=== PATIENT | female | born 1940 | race Caucasian/White ===

== ENCOUNTER → 2017-08-26 11:46 | Outpatient (CLI) | payer MEDICARE, SELFPAY ==
--- NOTE | 2017-08-30 10:58 | PM.PFT.1 ---
Pulmonary Function Test Referral & Results Date Patient Seen: 08/26/17 Results: The spirometry demonstrates an FVC of 1.61 L which is 69% of predicted. The FEV1 was measured at 0.86 L which is 50% of predicted. The FEV1/FVC ratio was 53 which is 72% of predicted. Following the administration of bronchodilator there was no appreciable change. Lung volumes show an SVC of 1.81 L which is 75% of predicted. The diffusing capacity was measured at 9.20 which is 45% of predicted. No hemoglobin value was provided, so no correction for potential anemia could be made, if appropriate. The maximum voluntary ventilation was reduced. Interpretation: This study demonstrates severe obstructive lung disease without evidence of benefit following bronchodilator administration There is also mild to moderate restrictive lung disease present There is also significant disease at the capillary alveolar level as demonstrated by the significant reduction in diffusing capacity
== END ==
PROVIDERS: Family Provider Internal Medicine; PCP Internal Medicine; Visit Provider Internal Medicine
DX: J44.9 Chronic obstructive pulmonary disease, unspecified (principal)
CPT/HCPCS: 94010; 94060; 94726; 94729

== ENCOUNTER 2017-09-25 07:00 | Emergency (ER) | payer MEDICARE, SELFPAY ==
[2017-09-25] VITALS (7 sets, daily range): BP systolic 90–110; BP diastolic 62–72; PULSE 88–110; RESP 16–24; TEMP 36.2; O2SAT 93–96; BMI 24.3
--- NOTE | 2017-09-25 07:25 | DI.RAD.S_ITS ---
PROCEDURE: XR CHEST 2V INDICATIONS: 77 year-old female with shortness of breath. TECHNIQUE: 2 views of the chest were acquired. COMPARISON: [facility], , CHEST 1 VIEW, 05/31/2014, 12:59. FINDINGS: Surgical changes and devices: None. Lungs and pleura: No pleural effusions or pneumothorax. Lungs are clear, except for patchy bilateral reticular interstitial opacities. Mediastinum: Mediastinal contours are normal. Heart size is normal. Bones and chest wall: No suspicious bony abnormalities. Nonacute right mid clavicle fracture is again noted. Nonacute T8, T9, T11, and T12 vertebral body compression fractures are also present. Soft tissues appear unremarkable. IMPRESSION: 1. Patchy bilateral reticular interstitial opacities may reflect early pulmonary edema versus atypical pneumonia. 2. Nonacute right mid clavicle fracture, as well as multiple nonacute lower thoracic spine compression fractures. Dictated by: Jh Phelps M.D. on 09/25/2017 at 8:09 Approved by: Jh Phelps M.D. on 09/25/2017 at 8:12
[2017-09-25] MEDS: ALBUTEROL/IPRATROPIUM 3 ML AMPUL INH (08:13)
[2017-09-25 08:17] LABS: Add Manual Diff / Slide Review NO; Basophils Percent Auto 0.5 % (0-2); Eosinophils Percent Auto 1.4 % (2-4); Hematocrit 39.1 % (36-46); Hemoglobin 13.3 g/dL (12.0-16.0); Lymphocytes Percent Auto 4.7 % (25-40); Mean Corpuscular HGB Conc 34.1 % (30-36); Mean Corpuscular Hemoglobin 30.1 PG (26-34); Mean Corpuscular Volume 88.1 fL (80-100); Monocytes Percent Auto 10.3 % (3-14); Neutrophils Absolute Auto 15900 /uL (3000-5900); Neutrophils Percent Auto 83.1 % (50-75); Platelet Count 258 X10^3/uL (150-400); Red Blood Cell Count 4.43 X10^6/uL (4.0-5.2); White Blood Cell Count 19.1 X10^3/uL (4.5-11.0)
[2017-09-25 08:27] LABS: Lactate (Lactic Acid) 1.4 mmol/L (0.7-2.1)
[2017-09-25 08:55] LABS: RBC Urine 0-1/HPF (0-5/HPF)
[2017-09-25 08:56] LABS: Bacteria Urine Many (>30); Culture Indicated Urine Specimen Cultured; Mucus Urine 1+ (Negative); Squamous Epithelial Cell Urine 1-5 /HPF; WBC Urine 10-30/HPF (0-5/HPF)
--- NOTE | 2017-09-25 09:00 | PC.NURSE ---
pt reports, congestion coughing for 8 days, has been having weakness for the last 3-4 days.
[2017-09-25] MEDS: levoFLOXacin 500 MG/100 ML PIGGYBACK 100 MG IV (09:13)
--- NOTE | 2017-09-25 09:15 | ED_ITS ---
HPI - URI/Sore Throat General Chief Complaint: Upper Respiratory Symptoms Stated Complaint: CANT BREATHE,COUGH/'INFECTION IN LOWER BOTTOM' Time Seen by Provider: 09/25/17 07:05 Source: patient Mode of arrival: ambulatory Limitations: no limitations History of Present Illness HPI Narrative: Patient to the emergency department today with a chief complaint of increasing shortness of breath for the past few days. She has had cough and congestion with chills. She saw the the provider at the walk-in clinic and was given Tessalon Perles but no antibiotics steroids. She states he is worse today. She gets more short of breath with exertion and also lying flat. She denies any history of heart problems but is a former smoker MD Complaint: fever, cough and nasal congestion Onset (ago): day(s) Duration: constant Severity: moderate Exacerbating factors: exertion Description of mucous: yellow Able to tolerate fluids by mouth: Yes Associated symptoms: fever, chills, rhinorrhea, nasal congestion, cough and shortness of breath Treatments prior to arrival: cold medicine Related Data Home Medications Medication Instructions Recorded Confirmed Probiotic 2 ea PO QAM 09/25/17 09/25/17 albuterol sulfate [ProAir HFA] 1 puff INHALATION DIRECTED 09/25/17 09/25/17 alendronate 1 tab PO QWEEK 09/25/17 09/25/17 benzonatate 1 cap PO DIRECTED 09/25/17 09/25/17 biotin 2 cap PO DAILY 09/25/17 09/25/17 cholecalciferol (vitamin D3) 1,000 unit PO DAILY 09/25/17 09/25/17 [Vitamin D3] coenzyme Q10 [Co Q-10] 400 mg PO DAILY 09/25/17 09/25/17 cyanocobalamin (vitamin B-12) 1 tab PO DAILY 09/25/17 09/25/17 [Vitamin B-12] fluticasone-salmeterol [Advair 1 puff INHALATION BID 09/25/17 09/25/17 Diskus] magnesium oxide 400 mg PO DAILY 09/25/17 09/25/17 metoprolol succinate 1 tab PO QPM 09/25/17 09/25/17 omeprazole 20 mg PO DAILY 09/25/17 09/25/17 vitamin E 3 cap PO BIDAC 09/25/17 09/25/17 zinc 50 mg PO DAILY 09/25/17 09/25/17 Previous Rx's Medication Instructions Recorded furosemide [Lasix] 20 mg PO DAILY #3 tab 09/25/17 levofloxacin [Levaquin] 500 mg PO Q24H 6 Days #6 tab 09/25/17 Allergies Allergy/AdvReac Type Severity Reaction Status Date / Time No Known Drug Allergies Allergy Verified 09/25/17 08:13 Review of Systems Review of Systems All systems reviewed & are unremarkable except as noted in HPI and below Constitutional Reports chills, Reports fatigue, Reports fever(s), Denies lethargy and Denies weakness Eyes Denies change in vision, Denies eye discharge, Denies irritation and Denies loss of vision ENT Ears, Nose, Mouth, and Throat: Denies change in voice, Denies neck pain and Denies sore throat Cardiovascular Denies chest pain, Denies irregular heart rhythm, Denies lightheadedness, Denies palpitations, Reports dyspnea, Reports dyspnea on exertion and Denies orthopnea Respiratory Reports cough, Reports dyspnea, Reports dyspnea on exertion and Reports wheezing Gastrointestinal Gastrointestinal: Denies abdominal pain, Denies change in bowel habits, Denies diarrhea, Denies nausea and Denies vomiting Genitourinary Denies hematuria, Denies flank pain, Denies urinary incontinence and Denies urinary urgency Musculoskeletal Denies neck pain Integumentary/Breasts Denies pruritus, Denies erythema, Denies rash and Denies wounds Neurologic Denies confusion, Denies loss of vision and Denies weakness Psychiatric Denies anxiety, Denies confusion, Denies depression, Denies homicidal ideation and Denies suicidal ideation Endocrine Reports fatigue and Denies palpitations Hematologic/Lymphatic Denies easy bruising Allergic/Immunologic Reports wheezing PFSH Social History Smoking Status: Former smoker Exam Narrative Exam Narrative: A pleasant 77-year-old female in mild distress Initial Vital Signs Initial Vital Signs: Vital Signs Temperature 97.2 F L 09/25/17 07:13 Pulse Rate 110 H 09/25/17 07:13 Respiratory Rate 24 09/25/17 07:13 Blood Pressure 110/65 09/25/17 07:13 Pulse Oximetry 93 09/25/17 07:13 Const General: cooperative, well developed and in distress Nutritional Appearance: well nourished Orientation: alert, awake, oriented x3 and not confused HENAZ Head: normocephalic and atraumatic Ears: external ears normal and TM's normal bilaterally Nose: external nose normal and No nasal discharge Face and sinus: sinuses nontender, face symmetric, no sinus tenderness and No dry mucous membranes Mouth: oral mucosae normal and moist mucous membranes Teeth and gingiva: dentition normal Throat: tonsils normal and uvula midline Eyes General: appearance normal, both eyes and all related structures Eyelids: eyelids normal Conjunctivae: conjunctivae normal Sclera: sclerae normal Pupils: PERRL EOM: EOM intact bilaterally Resp Effort & Inspection: normal respiratory effort, able to speak in complete sentences, audible wheezes, cough, respiratory distress and no use of accessory muscles Auscultation: crackles, diminished lung sounds, no rales, no rhonchi and wheezes Cardio Rate: regular rate Rhythm: regular rhythm Heart Sounds: no click, no gallops, no murmurs and no rubs Pulses: normal peripheral pulses GI Inspection: non-distended Palpation: soft, no hepatosplenomegaly, No guarding, No pulsatile mass and No tender Auscultation: normal bowel sounds Skin General: no rashes or lesions noted, No jaundice and No petechiae Extrem General: full ROM, no clubbing, cyanosis or edema, no pedal edema and no calf tenderness Psych Appearance: well kempt Mental Status: mental status grossly normal Attitude: cooperative Thought Content: normal and suicidality Judgment: judgment good Course Orders Ordered: ED Orders 09/25/17 09:18 Consult to Respiratory Therapy Evaluate & Treat EKG-12 Lead Stat 09/25/17 12:04 Sputum Culture Stat Discontinued Medications Albuterol (Ventolin) 2.5 mg INH Q20M AUGUSTUS Stop: 09/25/17 10:56 Last Admin: 09/25/17 10:09 Dose: 2.5 mg Albuterol/Ipratropium (Duoneb) 3 ml INH NOW ONE Stop: 09/25/17 08:13 Last Admin: 09/25/17 08:13 Dose: 3 ml Levofloxacin (Levaquin) 500 mg in 100 mls @ 100 mls/hr IV NOW ONE Stop: 09/25/17 10:02 Last Infusion: 09/25/17 10:40 Dose: 0 mls/hr Admin: 09/25/17 09:13 Dose: 100 mls/hr Methylprednisolone (Solu-Medrol 125 Mg Vial) 125 mg IV NOW ONE Stop: 09/25/17 09:19 Last Admin: 09/25/17 10:09 Dose: 125 mg Reevaluation(s) Reevaluation #1: Patient feeling somewhat better after initial breathing treatments. Vital Signs - 8 hr 09/25/17 10:00 09/25/17 10:11 Pulse Rate 90 Blood Pressure [Right Arm] 98/72 Pulse Oximetry 94 95 MDM - URI/Sore Throat Lab Data Result diagrams: 09/25/17 07:50 09/25/17 08:07 Lab Results 09/25/17 09/25/17 09/25/17 Range/Units 07:50 07:50 07:50 WBC 19.1 H (4.5-11.0) X10^3/uL RBC 4.43 (4.0-5.2) X10^6/uL Hgb 13.3 (12.0-16.0) g/dL Hct 39.1 (36-46) % MCV 88.1 (80-100) fL MCH 30.1 (26-34) PG MCHC 34.1 (30-36) % RDW 13.0 (11.6-14.8) % Plt Count 258 (150-400) X10^3/uL Neut % (Auto) 83.1 H (50-75) % Lymph % (Auto) 4.7 L (25-40) % Charlotte % (Auto) 10.3 (3-14) % Eos % (Auto) 1.4 L (2-4) % Baso % (Auto) 0.5 (0-2) % Neut # (Auto) 65839 H (4331-6953) /uL Sodium (137-145) mmol/L Potassium (3.4-5.1) mmol/L Chloride (98-107) mmol/L Carbon Dioxide (22-32) mmol/L BUN (7-17) mg/dL Creatinine (0.52-1.04) mg/dL Estimated GFR (>60) mL/min BUN/Creatinine Ratio (6-22) Glucose (80-110) mg/dL Lactate 1.4 (0.7-2.1) mmol/L Calcium (8.4-10.2) mg/dL Magnesium (1.6-2.3) mg/dL Total Creatine Kinase (30-135) U/L Troponin I (0.01-0.034) ng/mL B-Natriuretic Peptide (<29.3) Procalcitonin 0.11 (<0.5) ng/mL Urine Ictotest (Negative) Urine RBC (0-5/HPF) Urine WBC (0-5/HPF) Ur Squamous Epith Cells Urine Bacteria (None) Urine Mucus (Negative) Ur Culture Indicated? Micro UA Comment 09/25/17 09/25/17 09/25/17 Range/Units 07:50 08:07 08:41 WBC (4.5-11.0) X10^3/uL RBC (4.0-5.2) X10^6/uL Hgb (12.0-16.0) g/dL Hct (36-46) % MCV (80-100) fL MCH (26-34) PG MCHC (30-36) % RDW (11.6-14.8) % Plt Count (150-400) X10^3/uL Neut % (Auto) (50-75) % Lymph % (Auto) (25-40) % Charlotte % (Auto) (3-14) % Eos % (Auto) (2-4) % Baso % (Auto) (0-2) % Neut # (Auto) (5737-2805) /uL Sodium 140 (137-145) mmol/L Potassium 4.1 (3.4-5.1) mmol/L Chloride 101 (98-107) mmol/L Carbon Dioxide 27 (22-32) mmol/L BUN 17 (7-17) mg/dL Creatinine 0.70 (0.52-1.04) mg/dL Estimated GFR > 60.0 (>60) mL/min BUN/Creatinine Ratio 24.3 H (6-22) Glucose 114 H (80-110) mg/dL Lactate (0.7-2.1) mmol/L Calcium 9.1 (8.4-10.2) mg/dL Magnesium 2.0 (1.6-2.3) mg/dL Total Creatine Kinase 42 (30-135) U/L Troponin I < 0.012 (0.01-0.034) ng/mL B-Natriuretic Peptide 341.0 H (<29.3) Procalcitonin (<0.5) ng/mL Urine Ictotest Negative (Negative) Urine RBC 0-1/hpf (0-5/HPF) Urine WBC 10-30/hpf H (0-5/HPF) Ur Squamous Epith Cells 1-5 /hpf Urine Bacteria Many (>30) H (None) Urine Mucus 1+ H (Negative) Ur Culture Indicated? Specimen cultured Micro UA Comment Not Reportable Discharge Plan Departure Patient Disposition: Home, Self-Care Clinical Impression: Pneumonia, Acute UTI, CHF (congestive heart failure) Discharge Date/Time: 09/25/17 10:46 Interventions: ED Discharge Assessment Last Done: 09/25/17 10:45 Instructions: DI for Pneumonia -- Adult Activity Restrictions/Additional Instructions: *You have been diagnosed with [ pneumonia, urinary tract infection, and mild congestive heart failure ] *What to do: *Take medications as directed, your prescriptions have been electronically transmitted to [facility] in [place] at your request *Follow up with your primary care provider in 2-3 days, call today for appointment *Return to ER if you should have any new, worsening or concerning symptoms Prescriptions: New furosemide [Lasix] 20 mg tablet 20 mg PO DAILY Qty: 3 RF: 0 levofloxacin [Levaquin] 500 mg tablet 500 mg PO Q24H 6 Days Qty: 6 RF: 0 No Action alendronate 70 mg tablet 1 tab PO QWEEK RF: 0 fluticasone-salmeterol [Advair Diskus] 500-50 mcg/dose blister with device 1 puff Inhalation BID RF: 0 metoprolol succinate 25 mg tablet extended release 24 hr 1 tab PO QPM RF: 0 albuterol sulfate [ProAir HFA] 90 mcg/actuation HFA aerosol inhaler 1 puff Inhalation DIRECTED RF: 0 magnesium oxide 400 mg Tablet 400 mg PO DAILY RF: 0 cyanocobalamin (vitamin B-12) [Vitamin B-12] 500 mcg Tablet 1 tab PO DAILY RF: 0 benzonatate 100 mg capsule 1 cap PO DIRECTED RF: 0 omeprazole 20 mg Capsule,Delayed Release(Dr/Ec) 20 mg PO DAILY RF: 0 zinc 50 mg Tablet 50 mg PO DAILY RF: 0 cholecalciferol (vitamin D3) [Vitamin D3] 1,000 unit Capsule 1,000 unit PO DAILY RF: 0 coenzyme Q10 [Co Q-10] 200 mg Capsule 400 mg PO DAILY RF: 0 Probiotic 2 ea PO QAM RF: 0 biotin 2,500 mcg Capsule 2 cap PO DAILY RF: 0 vitamin E 450 MG capsule 3 cap PO BIDAC RF: 0 Referrals: Hansel Hanna MD [Primary Care Provider] -
[2017-09-25 09:33] LABS: Procalcitonin 0.11 ng/mL (<0.5)
[2017-09-25 09:52] LABS: BUN Creatinine Ratio 24.3 (6-22); Blood Urea Nitrogen 17 mg/dL (7-17); Calcium 9.1 mg/dL (8.4-10.2); Carbon Dioxide 27 mmol/L (22-32); Chloride 101 mmol/L (98-107); Creatine Kinase 42 U/L (30-135); Estimated Glomerular Filt Rate > 60.0 mL/min (>60); Glucose 114 mg/dL (80-110); HEMOLYSIS 22 (0-50); Potassium 4.1 mmol/L (3.4-5.1); Sodium 140 mmol/L (137-145)
[2017-09-25 10:05] LABS: Troponin I < 0.012 ng/mL (0.01-0.034)
[2017-09-25] MEDS: ALBUTEROL 2.5 MG/3 ML NEB INH (10:09)
[2017-09-25] MEDS: methylPREDNISolone 125 MG/2 ML VIAL IV (10:09)
[2017-09-25 14:45] LABS: Ictotest Urine Negative (Negative)
== END 2017-09-25 10:46 | disposition home or self-care (01) ==
PROVIDERS: Emergency Provider Emergency Medicine; Family Provider Internal Medicine; PCP Internal Medicine
DX: J18.9 Pneumonia, unspecified organism (principal); N39.0 Urinary tract infection, site not specified; I50.9 Heart failure, unspecified; Z87.891 Personal history of nicotine dependence
CPT/HCPCS: 36415; 36591; 71046; 80048; 81003; 81015; 82550; 82553; 83605; 83735; 83880; 84145; 84484; 85025; 87040; 87070; 87077; 87086; 87186; 87205; 93005; 94640; 96365; 96375; 99284; 99285; J1956; J2930; J7613

== ENCOUNTER → 2017-11-06 12:29 | Outpatient (CLI) | payer MEDICARE, SELFPAY ==
--- NOTE | 2017-11-06 | DI.ECHO.S_ITS ---
[place] [facility]---------+ [facility] +---------+ : : [address] : : : : [id number] : : : : Phone: [phone] Echocardiogram Report + + :Name: MYA SUERO Study Date: 11/06/2017 Height: 61 in : :[facility] Weight: 133 lb : : Gender: Female BSA: 1.6 m2 : :: 1940 Age: 77 yrs BP: 110/60 mmHg: :Reason For Study: Dyspnea : : Performed By: Eliane Tejeda : :Referring: JOSAFAT KESSLER : + + Interpretation Summary The left ventricle is normal in size, wall thickness, and systolic function without any focal wall motion abnormalities with the ejection fraction visually estimated to be 60-65%. Diastolic function could not be accurately assessed due to contradictory data. The right ventricle is at the upper limits of normal in size and right ventricular systolic function is borderline reduced. There is moderate pulmonary hypertension with the right ventricular systolic pressure estimated at 40 mmHg assuming a right atrial pressure of 3 mm Hg. There is moderate biatrial enlargement. There is moderate to severe tricuspid regurgitation but no other significant valvular heart disease. The ascending aorta is mildly enlarged. Procedure: A two-dimensional transthoracic echocardiogram with color flow and Doppler was performed. The study quality was technically good. There is no prior echocardiogram noted for this patient. The patient was in normal sinus rhythm during the exam. Left Ventricle: The left ventricle is normal in size, wall thickness, and systolic function without any focal wall motion abnormalities. The ejection fraction is estimated to be 60-65%. Diastolic function could not be accurately assessed due to contradictory data. Right Ventricle: The right ventricle is at the upper limits of normal in size. Right ventricular systolic function is borderline reduced. Atria: There is moderate biatrial enlargement. The interatrial septum is intact with no evidence for an atrial septal defect. Mitral Valve: The mitral valve leaflets appear mildly thickened, but open well. There is trace mitral regurgitation. Aortic Valve: The aortic valve is trileaflet. The aortic valve opens well. No aortic regurgitation is present. Tricuspid Valve: The tricuspid valve leaflets are thin and pliable. There is moderate to severe tricuspid regurgitation. There is moderate pulmonary hypertension. The right ventricular systolic pressure is estimated at 40 mmHg assuming a right atrial pressure of 3 mm Hg. Pulmonic Valve: The pulmonic valve is normal in structure and function. There is trace pulmonic regurgitation. There is no other significant valvular heart disease. Great Vessels: The aortic root is normal size. The ascending aorta is mildly enlarged. Pericardium/ Pleura There is no pericardial effusion. There is no pleural effusion. MMode/2D Measurements & Calculations LVIDd: 4.3 cm Ao root diam: 3.4 cm LVIDs: 2.5 cm Aortic Jxn: 2.7 cm FS: 42.2 % asc Aorta Diam: 3.7 cm EPSS: 0.71 cm IVSd: 0.63 cm LVPWd: 0.69 cm LV henao. diameter/BSA (cm/m^2): 2.7 LV sys. diameter/BSA (cm/m^2): 1.6 LA dimension: 3.6 cm RA long axis: 5.1 cm LA A2 area: 19.1 cm2 RA area: 20.2 cm2 LA A4 area: 22.2 cm2 RA vol: 68.5 ml LA length (vol): 5.3 cm RA : 43.1 ml/m2 LA vol: 67.7 ml IVC diam: 1.5 cm LA vol index: 42.6 ml/m2 RVDd major: 5.0 cm RVD1 (basal): 3.4 cm RVD2 (mid): 2.4 cm TAPSE: 2.3 cm Doppler Measurements & Calculations Ao V2 max: 125.4 cm/sec MV E max yuriy: 82.9 cm/sec Ao V2 mean: 74.4 cm/sec MV A max yuriy: 82.1 cm/sec Ao max P.3 mmHg MV E/A: 1.0 Ao mean P.8 mmHg Med Peak E' Yuriy: 5.5 cm/sec Ao V2 VTI: 26.8 cm E/E' med: 15.2 Lat Peak E' Yuriy: 7.7 cm/sec E/E' lat: 10.8 E/e' average: 13.0 MV dec time: 0.24 sec MV P1/2t: 69.4 msec TR max yuriy: 302.5 cm/sec MV P1/2t max yuriy: 83.3 cm/sec TR max P.6 mmHg MVA(P1/2t): 3.2 cm2 PA V2 max: 90.1 cm/sec PA V2 mean: 52.6 cm/sec PA mean P.4 mmHg PA Accel Time: 0.12 sec Reading Physician:MAURICIO
--- NOTE | 2017-11-06 | DI.CT.S_ITS ---
PROCEDURE: CT CHEST WO CON INDICATIONS: HEART FAILURE DYSPNEA PNEUMONIA TECHNIQUE: Noncontrast 5 mm thick sections acquired from the pulmonary apices to the posterior costophrenic angles. 7 mm thick coronal and sagittal MIP reformats were then acquired. For radiation dose reduction, the following was used: automated exposure control, adjustment of mA and/or kV according to patient size. COMPARISON: [facility], CT, CHEST/ABD/PELVIS W/CON (PNL), 03/04/2014, 19:20. [facility], CR, CHEST 1 VIEW, 05/31/2014, 12:59. [facility], CR, XR CHEST 2V, 09/25/2017, 7:42. FINDINGS: Image quality: Excellent. Lungs and pleura: Centrilobular emphysema. Focal areas of reticular nodular infiltrate compatible with pneumonia in the right middle and lower lobes and to lesser extent in the posterior left lower lobe. No acute air space opacities. No pleural effusions or pneumothorax. Central and peripheral airways are patent and normal in caliber. Mediastinum: Heart size is normal. No pericardial effusion. No mediastinal adenopathy by size criteria. Thoracic aorta and central pulmonary arteries are normal in size. Esophagus is normal in caliber. No hiatal hernia. Bones and chest wall: No suspicious bony lesions. No vertebral body compression fractures. No axillary or supraclavicular adenopathy by size criteria. Thyroid gland appears normal in size. Abdomen: Visualized upper abdominal solid organs and bowel loops appear normal in the absence of contrast. Post cholecystectomy. IMPRESSION: 1. Multilobar pneumonia, right greater than left, superimposed on chronic emphysema. Dictated by: David Giron M.D. on 11/06/2017 at 14:02 Approved by: David Giron M.D. on 11/06/2017 at 14:09
== END ==
PROVIDERS: Family Provider Internal Medicine; PCP Internal Medicine; Visit Provider Internal Medicine
DX: J18.9 Pneumonia, unspecified organism (principal); I50.9 Heart failure, unspecified; I07.1 Rheumatic tricuspid insufficiency; J43.9 Emphysema, unspecified; R06.00 Dyspnea, unspecified
CPT/HCPCS: 71250; 93306

== ENCOUNTER → 2017-12-30 11:05 | Outpatient (CLI) | payer MEDICARE, SELFPAY ==
--- NOTE | 2017-12-30 | DI.RAD.S_ITS ---
PROCEDURE: XR CHEST 2V INDICATIONS: F/U PNEUMONIA TECHNIQUE: 2 views of the chest were acquired. COMPARISON: [facility], CR, CHEST 2VW, 03/06/2014, 9:38. [facility], CR, CHEST 1 VIEW, 05/31/2014, 12:59. [facility], CT, CT CHEST WO CON, 11/06/2017, 12:35. [facility], CR, XR CHEST 2V, 09/25/2017, 7:42. FINDINGS: Surgical changes and devices: None. Lungs and pleura: Bilateral chronic interstitial prominence appears unchanged. No focal consolidations. No pleural effusions or pneumothorax. Mediastinum: Mediastinal contours are normal. Heart size is normal. Bones and chest wall: Multiple non--acute moderate to severe compression fractures of the thoracic spine. Old right rib fractures are noted. Soft tissues appear unremarkable. IMPRESSION: 1. Bilateral chronic interstitial prominence. No focal consolidation. 2. Multiple nonacute compression fractures in thoracic spine. Dictated by: Iggy Perdomo M.D. on 12/30/2017 at 13:58 Approved by: Iggy Perdomo M.D. on 12/30/2017 at 14:04
== END ==
PROVIDERS: PCP Internal Medicine; Visit Provider Internal Medicine
DX: J18.9 Pneumonia, unspecified organism (principal); M48.54XA Collapsed vertebra, not elsewhere classified, thoracic region, initial encounter for fracture
CPT/HCPCS: 71046

== ENCOUNTER → 2018-07-20 09:17 | Outpatient (CLI) | payer MEDICARE, SELFPAY ==
--- NOTE | 2018-07-20 | DI.US.S_ITS ---
PROCEDURE: US RENAL COMPLETE INDICATIONS: BLADDER PAIN TECHNIQUE: Real-time scanning was performed of the kidneys and bladder, with image documentation. COMPARISON: None. FINDINGS: Kidneys: Kidneys are normal in size. Right kidney measures 8.3 cm long; left kidney measures 8.8 cm long. Right renal cortical thickness is 1 cm; left renal cortical thickness is 0.9 cm. Renal cortical echotexture is normal. No hydronephrosis or nephrolithiasis. No suspicious solid mass lesions. Bladder: Pre-void bladder volume is 247 mL. Post-void residual is 5 mL. Pre-void images demonstrate mobile sludge.. On pre-void images, only the right ureteral jet can be seen with color Doppler interrogation. (Of note, ureteral jets may not be detectable in up to 25% of cases due to insufficient differences in specific gravity between ureteral and bladder urine). Miscellaneous: No free pelvic fluid. IMPRESSION: Mobile sludge can be seen within the bladder lumen, which is consistent with a urinary tract infection. Small postvoid residual of 5 cc. Dictated by: Mervin Arvizu M.D. on 07/20/2018 at 11:19 Approved by: Mervin Arvizu M.D. on 07/20/2018 at 11:20
== END ==
PROVIDERS: Family Provider Internal Medicine; PCP Internal Medicine; Visit Provider Specialist
DX: R39.89 Other symptoms and signs involving the genitourinary system (principal); N32.89 Other specified disorders of bladder
CPT/HCPCS: 76770

== ENCOUNTER → 2018-08-10 11:28 | Outpatient (CLI) | payer MEDICARE, SELFPAY ==
--- NOTE | 2018-08-10 11:38 | DI.CT.S_ITS ---
PROCEDURE: CT CHEST W CON INDICATIONS: Pain in thoracic spine TECHNIQUE: After the administration of intravenous contrast, 5 mm thick sections acquired from the pulmonary apices to the posterior costophrenic angles. 7 mm thick coronal and sagittal MIP reformats were acquired. For radiation dose reduction, the following was used: automated exposure control, adjustment of mA and/or kV according to patient size. COMPARISON: [facility], CT, CT CHEST WO CON, 11/06/2017, 12:35. FINDINGS: Image quality: Excellent. Lungs and pleura: There is mild to moderate centrilobular emphysema. Ill-defined nodular opacity in the anterior medial aspect of left upper lobe is seen series 3 image 28. Ill-defined nodular opacity is also seen scattered in the lateral and posterior lateral periphery of right upper lobe series 3 images 26, 27, 28, and 32. Subtle nodular densities also seen in posterior aspect of right lower lobe, series 3 image 30 and 40, decreased in size and numbers compared to previous study. There is a small No pleural effusions or pneumothorax. Central and peripheral airways are patent and normal in caliber. Mediastinum: Heart size is normal. No pericardial effusion. No mediastinal or hilar adenopathy by size criteria. Thoracic aorta and central pulmonary arteries are normal in size. Esophagus is normal in caliber. No hiatal hernia. Bones and chest wall: No suspicious bony lesions. Chronic appearing anterior wedge compression deformities involving T7, T8, T9, T10 and T11 vertebral bodies are again seen with mild to moderate kyphosis centered at T8 level unchanged in appearance compared to 2018 study. No axillary or supraclavicular adenopathy by size criteria. Thyroid gland is within normal limits. Abdomen: Visualized upper abdominal solid organs appear normal. Upper abdominal bowel loops are normal in caliber. Patient is status post cholecystectomy. IMPRESSION: 1. Nodular air space opacities scattered in the periphery of the bilateral lung cornejo as described above, not significantly changed in size and appearance in bilateral upper lobes and increased in size and number in right lower lobe as described above, suggestive of small nodular atelectasis/scarring versus resolving nodular infiltrates. Continued CT chest followup is recommended. 2. No pleural effusion or pneumothorax. Airway is patent. 3. No mediastinal or hilar lymphadenopathy. 4. Chronic appearing anterior wedge compression deformities involving T7-T11 levels with moderate kyphosis unchanged from prior study. Dictated by: Keon Tineo M.D. on 08/10/2018 at 14:26 Approved by: Keon Tineo M.D. on 08/10/2018 at 14:37
== END ==
PROVIDERS: PCP Internal Medicine; Visit Provider Specialist
DX: M54.6 Pain in thoracic spine (principal); Z90.49 Acquired absence of other specified parts of digestive tract; J43.2 Centrilobular emphysema
CPT/HCPCS: 71260; Q9967

== ENCOUNTER 2019-07-15 16:49 | Emergency (ER) | payer OTHER, MEDICARE, SELFPAY ==
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
[2019-07-15 17:07] VITALS: BP 176/98; PULSE 107; RESP 20; TEMP 36.8; O2SAT 92; BMI 27.1
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
[2019-07-15 17:23] LABS: Add Manual Diff / Slide Review NO; Basophils Absolute Auto 100 /uL (0-100); Basophils Percent Auto 0.5 % (0-2); Eosinophils Absolute Auto 100 /uL (0-450); Eosinophils Percent Auto 0.5 % (2-4); Hematocrit 39.5 % (36-46); Hemoglobin 13.2 g/dL (12.0-16.0); Lymphocytes Absolute Auto 800 /uL (1100-4500); Lymphocytes Percent Auto 4.6 % (25-40); Mean Corpuscular HGB Conc 33.5 % (30-36); Mean Corpuscular Hemoglobin 29.5 PG (26-34); Mean Corpuscular Volume 88.2 fL (80-100); Monocytes Absolute Auto 1300 /uL (0-900); Monocytes Percent Auto 7.2 % (3-14); Neutrophils Absolute Auto 15600 /uL (1500-7000); Neutrophils Percent Auto 87.2 % (50-75); Platelet Count 328 X10^3/uL (150-400); Red Blood Cell Count 4.48 X10^6/uL (4.0-5.2); Red Cell Distribution Width 12.8 % (11.6-14.8); White Blood Cell Count 17.9 X10^3/uL (4.5-11.0)
[2019-07-15 17:36] LABS: Alanine Aminotransferase 17 IU/L (<35); Albumin 4.3 g/dL (3.5-5.0); Albumin Globulin Ratio 1.2 (1.0-2.8); Alkaline Phosphatase 96 U/L (38-126); Aspartate Aminotransferase 25 IU/L (14-36); BUN Creatinine Ratio 27.1 (6-22); Bilirubin Total 0.2 mg/dL (0.2-1.3); Blood Urea Nitrogen 19 mg/dL (7-17); Calcium 9.8 mg/dL (8.4-10.2); Carbon Dioxide 31 mmol/L (22-32); Chloride 101 mmol/L (98-107); Estimated Glomerular Filt Rate > 60.0 mL/min (>60); Globulin 3.6 g/dL (1.7-4.1); Glucose 111 mg/dL (80-110); HEMOLYSIS < 15 (0-50); Lipase 123 U/L (23-300); Potassium 4.6 mmol/L (3.4-5.1); Sodium 137 mmol/L (137-145); Total Protein 7.9 g/dL (6.3-8.2)
[2019-07-15 18:20] VITALS: BP 146/85; PULSE 91; RESP 16; O2SAT 97
== END 2019-07-15 18:21 | disposition home or self-care (01) ==
PROVIDERS: Emergency Provider Emergency Medicine; PCP Internal Medicine
DX: M25.572 Pain in left ankle and joints of left foot (principal); M25.562 Pain in left knee; M25.561 Pain in right knee; M54.5 Low back pain; R10.13 Epigastric pain; V89.2XXA Person injured in unspecified motor-vehicle accident, traffic, initial encounter
CPT/HCPCS: 73560; 73600; 74177; 80053; 83690; 85025; 99282; 99284; Q9967

== ENCOUNTER 2019-09-16 16:33 | Emergency (ER) | payer MEDICARE, SELFPAY ==
--- NOTE | 2019-09-16 16:40 | DI.RAD.S_ITS ---
PROCEDURE: XR CHEST 1V INDICATIONS: Shortness of breath TECHNIQUE: One view of the chest was acquired. COMPARISON: [facility], CT, CT CHEST W CON, 08/10/2018, 11:37. [facility], CT, CT CHEST WO CON, 11/06/2017, 12:35. [facility], CR, XR CHEST 2V, 09/25/2017, 7:42. [facility], CR, XR CHEST 2V, 12/30/2017, 10:48. FINDINGS: Surgical changes and devices: None. Lungs and pleura: Lungs are clear, yet hyperexpanded. No pleural effusions or pneumothorax. Mediastinum: The cardiac contours are within normal limits. The aorta demonstrates calcification and tortuosity. Bones and chest wall: No suspicious bony lesions. Age-appropriate bony degenerative changes are seen. Mild levoconvex scoliotic curvature is noted. Remote bilateral rib fractures are seen. Overlying soft tissues appear unremarkable. IMPRESSION: No acute cardiopulmonary process is seen. Hyperexpanded lungs are noted. Dictated by: Mervin Arvizu M.D. on 09/16/2019 at 16:03 Approved by: Mervni Arvizu M.D. on 09/16/2019 at 16:05
[2019-09-16 16:59] VITALS: BP 185/110; PULSE 95; RESP 22; TEMP 36.9; O2SAT 96; BMI 26.8
[2019-09-16 17:00] VITALS: BP 145/83; PULSE 77; RESP 26; O2SAT 97
[2019-09-16] MEDS: ALBUTEROL/IPRATROPIUM MDI 2 PUFF INH (17:03)
[2019-09-16 17:06] LABS: Add Manual Diff / Slide Review NO; Basophils Absolute Auto 100 /uL (0-100); Basophils Percent Auto 0.6 % (0-2); Eosinophils Absolute Auto 200 /uL (0-450); Eosinophils Percent Auto 1.4 % (2-4); Hematocrit 39.8 % (36-46); Hemoglobin 13.3 g/dL (12.0-16.0); Lymphocytes Absolute Auto 900 /uL (1100-4500); Lymphocytes Percent Auto 7.6 % (25-40); Mean Corpuscular HGB Conc 33.3 % (30-36); Monocytes Absolute Auto 1100 /uL (0-900); Monocytes Percent Auto 8.8 % (3-14); Neutrophils Absolute Auto 10000 /uL (1500-7000); Neutrophils Percent Auto 81.6 % (50-75); Platelet Count 264 X10^3/uL (150-400); Red Blood Cell Count 4.42 X10^6/uL (4.0-5.2); Red Cell Distribution Width 13.7 % (11.6-14.8); White Blood Cell Count 12.3 X10^3/uL (4.5-11.0)
[2019-09-16 17:17] LABS: PTT Partial Thromboplastin Tim 32 SECONDS (26.4-36.2)
--- NOTE | 2019-09-16 17:17 | ED.SOB ---
HPI - SOB/Dyspnea <Teresita Jimenezmer, SYSTEMS AUDITOR-BC - Last Filed: 09/16/19 20:39> General Chief Complaint: Shortness of Breath/Dyspnea Stated Complaint: can't breathe Time Seen by Provider: 09/16/19 16:40 Source: patient and other Mode of arrival: Ambulatory Limitations: no limitations History of Present Illness HPI Narrative: The patient is an 79-year-old female former smoker with history of COPD and pneumonia as well as mild CHF who presents with a chief complaint of shortness of breath that has been getting progressively worse. She presents with her neighbor. She states has been better for a few weeks, which started with allergy season. However her shortness of breath and wheezing has gotten worse over the past 2 days. She complains of a cough, slightly productive. She states that she has been using her albuterol, but does not have a spacer. She states she also has chronic COPD medications. She denies any fevers. She states that she has been isolating at home as not been around anybody with cope with. She denies any nausea vomiting or diarrhea. She states that she is breathing so hard that she feels the muscles in her back hurting as well as muscles in her chest, but only when she takes a deep breath. She denies chest pain unless she is taking deep breaths. Related Data Home Medications Medication Instructions Recorded Confirmed Probiotic 2 ea PO QAM 09/25/17 09/25/17 albuterol sulfate [ProAir HFA] 1 puff INHALATION DIRECTED 09/25/17 09/25/17 alendronate 1 tab PO QWEEK 09/25/17 09/25/17 benzonatate 1 cap PO DIRECTED 09/25/17 09/25/17 biotin 2 cap PO DAILY 09/25/17 09/25/17 cholecalciferol (vitamin D3) 1,000 unit PO DAILY 09/25/17 09/25/17 [Vitamin D3] coenzyme Q10 [Co Q-10] 400 mg PO DAILY 09/25/17 09/25/17 cyanocobalamin (vitamin B-12) 1 tab PO DAILY 09/25/17 09/25/17 [Vitamin B-12] fluticasone propion-salmeterol 1 puff INHALATION BID 09/25/17 09/25/17 [Advair Diskus] magnesium oxide 400 mg PO DAILY 09/25/17 09/25/17 metoprolol succinate 1 tab PO QPM 09/25/17 09/25/17 omeprazole 20 mg PO DAILY 09/25/17 09/25/17 vitamin E 3 cap PO BIDAC 09/25/17 09/25/17 zinc 50 mg PO DAILY 09/25/17 09/25/17 Previous Rx's Medication Instructions Recorded furosemide [Lasix] 20 mg PO DAILY #3 tab 09/25/17 azithromycin See Rx Instructions .ROUTE 09/16/19 .COMPLEX #6 tab ipratropium-albuterol 3 ml INHALATION Q4H PRN #15 ml 09/16/19 methocarbamol 500 mg PO TID PRN #14 tab 09/16/19 prednisone 40 mg PO DAILY #10 tab 09/16/19 Allergies Allergy/AdvReac Type Severity Reaction Status Date / Time No Known Drug Allergies Allergy Verified 07/15/19 17:13 Review of Systems <LELE Hodges - Last Filed: 09/16/19 20:39> Review of Systems Narrative: GENERAL: Denies chills, fatigue, malaise, fever, sweats. HEENT: Denies sinus pain, ear pain, sore throat, difficulty swallowing, dizziness. RESPIRATORY: See HPI CARDIOVASCULAR: See HPI GASTROINTESTINAL: Denies nausea, vomiting, abdominal pain, diarrhea, constipation, melena. : Denies dysuria, frequency, incontinence, hematuria, urinary retention. MUSCULOSKELETAL: denies weakness, joint pain, or bony pain SKIN: Denies rash, skin lesions, or other NEUROLOGIC: Denies weakness, headache, numbness, change in speech, confusion, seizures, incoordination. PSYCHIATRIC: No concerning psychosocial issues. 12 point review of systems is negative except for those stated above Patient History <LELE Hodges - Last Filed: 09/16/19 20:39> Medical History COPD (chronic obstructive pulmonary disease) (Acute) Social History Smoking Status: Former smoker Smoking Status: Former smoker alcohol intake frequency: 0-2 drinks per day Substance Use Type: does not use Exam <LELE Hodges - Last Filed: 09/16/19 20:39> Narrative Exam Narrative: GENERAL: This is a well-nourished, well-developed patient, in no acute distress HEAD: Atraumatic. Normocephalic. No temporal or scalp tenderness. EYES: Pupils equal round and reactive. Extraocular motions intact. No scleral icterus. No injection or drainage. ENT: Nose without bleeding, purulent drainage or septal hematoma. Throat without erythema, tonsillar hypertrophy or exudate. Uvula midline. Airway patent. NECK: Trachea midline. No JVD or lymphadenopathy. Supple, nontender, no meningeal signs. CARDIOVASCULAR: Regular rate and rhythm RESPIRATORY: Inspiratory and expiratory wheezes bilaterally. 2-3 word dyspnea. Lying on stretcher GASTROINTESTINAL: Abdomen soft, non-tender, nondistended. No hepato-splenomegaly, or palpable masses. No guarding. EXTREMITIES: No clubbing, cyanosis, or edema. No joint tenderness, effusion, or edema noted. BACK: Nontender without deformity or crepitance. No flank tenderness. NEURO: AOx3. SKIN: No rash or erythema. Initial Vital Signs Initial Vital Signs: Vital Signs Temperature 98.5 F 09/16/19 16:59 Pulse Rate 95 H 09/16/19 16:59 Respiratory Rate 22 09/16/19 16:59 Blood Pressure 185/110 H 09/16/19 16:59 Pulse Oximetry 96 09/16/19 16:59 <Juno Cruz DO - Last Filed: 09/21/19 18:03> Initial Vital Signs Initial Vital Signs: Vital Signs Temperature 98.5 F 09/16/19 16:59 Pulse Rate 95 H 09/16/19 16:59 Respiratory Rate 22 09/16/19 16:59 Blood Pressure 185/110 H 09/16/19 16:59 Pulse Oximetry 96 09/16/19 16:59 Scores <LELE Hodges - Last Filed: 09/16/19 20:39> GCS [place] coma scale eye opening: Spontaneous [place] coma scale verbal response: Orientated [place] coma scale motor response: Obey commands Catalina coma scale total score: 15 Course <LELE Hodges - Last Filed: 09/16/19 20:39> Orders Ordered: Discontinued Medications Albuterol/Ipratropium (Combivent Respimat) 2 puff INH NOW ONE Stop: 09/16/19 16:59 Last Admin: 09/16/19 17:03 Dose: 2 puff Documented by: BEL Albuterol/Ipratropium (Duoneb) 3 ml INH NOW ONE Stop: 09/16/19 20:26 Last Admin: 09/16/19 20:31 Dose: 3 ml Documented by: LAURA Albuterol/Ipratropium (Duoneb) 3 ml INH NOW ONE Stop: 09/16/19 20:26 Last Admin: 09/16/19 20:31 Dose: 3 ml Documented by: LAURA Ketorolac Tromethamine (Toradol) 15 mg IV NOW ONE Stop: 09/16/19 18:35 Last Admin: 09/16/19 18:54 Dose: 15 mg Documented by: CALVIN Methocarbamol (Robaxin) 500 mg PO NOW ONE Stop: 09/16/19 18:34 Last Admin: 09/16/19 18:54 Dose: 500 mg Documented by: CALVIN Methylprednisolone (Solu-Medrol 125 Mg Vial) 125 mg IV NOW ONE Stop: 09/16/19 18:34 Last Admin: 09/16/19 18:54 Dose: 125 mg Documented by: CALVIN Vital Signs Vital signs: Vital Signs - 8 hr 09/16/19 16:59 09/16/19 17:00 09/16/19 17:19 Temperature 98.5 F Pulse Rate 95 H 77 78 Respiratory Rate 22 26 H Blood Pressure 185/110 H Blood Pressure [Left Arm] 145/83 H Pulse Oximetry 96 97 98 09/16/19 18:00 09/16/19 19:00 Temperature Pulse Rate 86 92 H Respiratory Rate 25 H 22 Blood Pressure Blood Pressure [Left Arm] 143/67 H 152/73 H Pulse Oximetry 96 97 <Juno Cruz DO - Last Filed: 09/21/19 18:03> Orders Ordered: Discontinued Medications Albuterol/Ipratropium (Combivent Respimat) 2 puff INH NOW ONE Stop: 09/16/19 16:59 Last Admin: 09/16/19 17:03 Dose: 2 puff Documented by: BEL Albuterol/Ipratropium (Duoneb) 3 ml INH NOW ONE Stop: 09/16/19 20:26 Last Admin: 09/16/19 20:31 Dose: 3 ml Documented by: LAURA Albuterol/Ipratropium (Duoneb) 3 ml INH NOW ONE Stop: 09/16/19 20:26 Last Admin: 09/16/19 20:31 Dose: 3 ml Documented by: LAURA Ketorolac Tromethamine (Toradol) 15 mg IV NOW ONE Stop: 09/16/19 18:35 Last Admin: 09/16/19 18:54 Dose: 15 mg Documented by: CALVIN Methocarbamol (Robaxin) 500 mg PO NOW ONE Stop: 09/16/19 18:34 Last Admin: 09/16/19 18:54 Dose: 500 mg Documented by: CALVIN Methylprednisolone (Solu-Medrol 125 Mg Vial) 125 mg IV NOW ONE Stop: 09/16/19 18:34 Last Admin: 09/16/19 18:54 Dose: 125 mg Documented by: CALVIN Vital Signs Vital signs: Vital Signs - 8 hr 09/16/19 16:59 09/16/19 17:00 09/16/19 17:19 Temperature 98.5 F Pulse Rate 95 H 77 78 Respiratory Rate 22 26 H Blood Pressure 185/110 H Blood Pressure [Left Arm] 145/83 H Pulse Oximetry 96 97 98 09/16/19 18:00 09/16/19 19:00 Temperature Pulse Rate 86 92 H Respiratory Rate 25 H 22 Blood Pressure Blood Pressure [Left Arm] 143/67 H 152/73 H Pulse Oximetry 96 97 MDM - SOB/Dyspnea <DARLING Hodges- - Last Filed: 09/16/19 20:39> Lab Data Result diagrams: 09/16/19 16:51 09/16/19 16:51 Labs: Lab Results 09/16/19 09/16/19 09/16/19 Range/Units 16:51 16:51 16:51 WBC 12.3 H (4.5-11.0) X10^3/uL RBC 4.42 (4.0-5.2) X10^6/uL Hgb 13.3 (12.0-16.0) g/dL Hct 39.8 (36-46) % MCV 90.0 (80-100) fL MCH 30.0 (26-34) PG MCHC 33.3 (30-36) % RDW 13.7 (11.6-14.8) % Plt Count 264 (150-400) X10^3/uL Neut % (Auto) 81.6 H (50-75) % Lymph % (Auto) 7.6 L (25-40) % [place] % (Auto) 8.8 (3-14) % Eos % (Auto) 1.4 L (2-4) % Baso % (Auto) 0.6 (0-2) % Neut # (Auto) 38505 H (7634-0817) /uL Lymph # (Auto) 900 L (3396-1050) /uL [place] # (Auto) 1100 H (0-900) /uL Eos # (Auto) 200 (0-450) /uL Baso # (Auto) 100 (0-100) /uL PT 11.0 (10.1-12.7) SECONDS INR 1.0 (0.9-1.3) APTT 32 (26.4-36.2) SECONDS Sodium 138 (137-145) mmol/L Potassium 4.5 (3.4-5.1) mmol/L Chloride 101 (98-107) mmol/L Carbon Dioxide 30 (22-32) mmol/L BUN 21 H (7-17) mg/dL Creatinine 0.72 (0.52-1.04) mg/dL Estimated GFR > 60.0 (>60) mL/min BUN/Creatinine Ratio 29.2 H (6-22) Glucose 119 H (80-110) mg/dL Calcium 9.2 (8.4-10.2) mg/dL Total Bilirubin 0.3 (0.2-1.3) mg/dL AST 41 H (14-36) IU/L ALT 23 (<35) IU/L Alkaline Phosphatase 83 (38-126) U/L Troponin I < 0.012 (0.01-0.034) ng/mL NT-Pro-B Natriuret Pep (<450) pg/mL Total Protein 7.9 (6.3-8.2) g/dL Albumin 4.5 (3.5-5.0) g/dL Globulin 3.4 (1.7-4.1) g/dL Albumin/Globulin Ratio 1.3 (1.0-2.8) Lipase 115 (23-300) U/L Procalcitonin (<0.5) ng/mL 09/16/19 09/16/19 09/16/19 Range/Units 16:51 16:51 19:27 WBC (4.5-11.0) X10^3/uL RBC (4.0-5.2) X10^6/uL Hgb (12.0-16.0) g/dL Hct (36-46) % MCV (80-100) fL MCH (26-34) PG MCHC (30-36) % RDW (11.6-14.8) % Plt Count (150-400) X10^3/uL Neut % (Auto) (50-75) % Lymph % (Auto) (25-40) % [place] % (Auto) (3-14) % Eos % (Auto) (2-4) % Baso % (Auto) (0-2) % Neut # (Auto) (1002-4713) /uL Lymph # (Auto) (3423-3669) /uL [place] # (Auto) (0-900) /uL Eos # (Auto) (0-450) /uL Baso # (Auto) (0-100) /uL PT (10.1-12.7) SECONDS INR (0.9-1.3) APTT (26.4-36.2) SECONDS Sodium (137-145) mmol/L Potassium (3.4-5.1) mmol/L Chloride (98-107) mmol/L Carbon Dioxide (22-32) mmol/L BUN (7-17) mg/dL Creatinine (0.52-1.04) mg/dL Estimated GFR (>60) mL/min BUN/Creatinine Ratio (6-22) Glucose (80-110) mg/dL Calcium (8.4-10.2) mg/dL Total Bilirubin (0.2-1.3) mg/dL AST (14-36) IU/L ALT (<35) IU/L Alkaline Phosphatase (38-126) U/L Troponin I < 0.012 (0.01-0.034) ng/mL NT-Pro-B Natriuret Pep 47 (<450) pg/mL Total Protein (6.3-8.2) g/dL Albumin (3.5-5.0) g/dL Globulin (1.7-4.1) g/dL Albumin/Globulin Ratio (1.0-2.8) Lipase (23-300) U/L Procalcitonin < 0.05 (<0.5) ng/mL 09/16/19 Range/Units 19:27 WBC (4.5-11.0) X10^3/uL RBC (4.0-5.2) X10^6/uL Hgb (12.0-16.0) g/dL Hct (36-46) % MCV (80-100) fL MCH (26-34) PG MCHC (30-36) % RDW (11.6-14.8) % Plt Count (150-400) X10^3/uL Neut % (Auto) (50-75) % Lymph % (Auto) (25-40) % [place] % (Auto) (3-14) % Eos % (Auto) (2-4) % Baso % (Auto) (0-2) % Neut # (Auto) (7579-8448) /uL Lymph # (Auto) (1257-8051) /uL [place] # (Auto) (0-900) /uL Eos # (Auto) (0-450) /uL Baso # (Auto) (0-100) /uL PT (10.1-12.7) SECONDS INR (0.9-1.3) APTT (26.4-36.2) SECONDS Sodium (137-145) mmol/L Potassium (3.4-5.1) mmol/L Chloride (98-107) mmol/L Carbon Dioxide (22-32) mmol/L BUN (7-17) mg/dL Creatinine (0.52-1.04) mg/dL Estimated GFR (>60) mL/min BUN/Creatinine Ratio (6-22) Glucose (80-110) mg/dL Calcium (8.4-10.2) mg/dL Total Bilirubin (0.2-1.3) mg/dL AST (14-36) IU/L ALT (<35) IU/L Alkaline Phosphatase (38-126) U/L Troponin I (0.01-0.034) ng/mL NT-Pro-B Natriuret Pep 72 (<450) pg/mL Total Protein (6.3-8.2) g/dL Albumin (3.5-5.0) g/dL Globulin (1.7-4.1) g/dL Albumin/Globulin Ratio (1.0-2.8) Lipase (23-300) U/L Procalcitonin (<0.5) ng/mL Imaging Data Chest x-ray: Radiologist's Impression: [address] [place] [id number] XRay Report Signed Patient: Krys Mullins EMR#: [id number] : 9Acct:[id number] Age/Sex: 79 / FDate of Service: 09/16/19 Loc: ED Accession Number: [id number] Procedure: XR chest 1V Ordering Provider: Juno Cruz D.O. PROCEDURE: XR CHEST 1V INDICATIONS: Shortness of breath TECHNIQUE: One view of the chest was acquired. COMPARISON: [facility], CT, CT CHEST W CON, 08/10/2018, 11:37. [facility], CT, CT CHEST WO CON, 11/06/2017, 12:35. [facility], CR, XR CHEST 2V, 09/25/2017, 7:42. [facility], CR, XR CHEST 2V, 12/30/2017, 10:48. FINDINGS: Surgical changes and devices: None. Lungs and pleura: Lungs are clear, yet hyperexpanded. No pleural effusions or pneumothorax. Mediastinum: The cardiac contours are within normal limits. The aorta demonstrates calcification and tortuosity. Bones and chest wall: No suspicious bony lesions. Age-appropriate bony degenerative changes are seen. Mild levoconvex scoliotic curvature is noted. Remote bilateral rib fractures are seen. Overlying soft tissues appear unremarkable. IMPRESSION: No acute cardiopulmonary process is seen. Hyperexpanded lungs are noted. Dictated by: Mervin Arvizu M.D. on 09/16/2019 at 16:03 Approved by: Mervin Arvizu M.D. on 09/16/2019 at 16: ECG Data Attestation: I personally reviewed and interpreted this ECG as follows: Interpretation: Sinus. Ventricular rate 80. P.r. interval 134. QRS 82. Wandering artifact noted. viewed by Dr Nancy DE LA FUENTE Narrative Medical decision making narrative: The patient is an 79-year-old female who presents with a chief complaint of increasing shortness of breath. She has baseline COPD, and states that or shortness of breath has gotten worse over the past 2 days. She wonders if it is related to her allergies. She is wheezing on initial exam, was treated by respiratory therapy, has no obvious pneumonia on x-ray. However she does have increased sputum production and coughing, so I will treat her for COPD exacerbation with steroids, antibiotics. I did place her on a burst of steroids as well as give her a refill of her nebulizer treatments home. I discussed at length the possibility of coming into the hospital, but the patient would like to go home. She feels much improved after the above-stated therapies, is able to speak in full sentences and states that she is back at her baseline which her neighbor agrees with. She states she will come back if she gets worse. Discussed at length coming back to emergency department for any acute concerns as well as follow-up with primary care provider. Patient has no questions or concerns upon discharge and states understanding return precautions as well as follow-up care. <Juno Cruz, DO - Last Filed: 09/21/19 18:03> Lab Data Labs: Lab Results 09/16/19 09/16/19 09/16/19 Range/Units 16:51 16:51 16:51 WBC 12.3 H (4.5-11.0) X10^3/uL RBC 4.42 (4.0-5.2) X10^6/uL Hgb 13.3 (12.0-16.0) g/dL Hct 39.8 (36-46) % MCV 90.0 (80-100) fL MCH 30.0 (26-34) PG MCHC 33.3 (30-36) % RDW 13.7 (11.6-14.8) % Plt Count 264 (150-400) X10^3/uL Neut % (Auto) 81.6 H (50-75) % Lymph % (Auto) 7.6 L (25-40) % [place] % (Auto) 8.8 (3-14) % Eos % (Auto) 1.4 L (2-4) % Baso % (Auto) 0.6 (0-2) % Neut # (Auto) 36077 H (5755-6336) /uL Lymph # (Auto) 900 L (1691-2278) /uL [place] # (Auto) 1100 H (0-900) /uL Eos # (Auto) 200 (0-450) /uL Baso # (Auto) 100 (0-100) /uL PT 11.0 (10.1-12.7) SECONDS INR 1.0 (0.9-1.3) APTT 32 (26.4-36.2) SECONDS Sodium 138 (137-145) mmol/L Potassium 4.5 (3.4-5.1) mmol/L Chloride 101 (98-107) mmol/L Carbon Dioxide 30 (22-32) mmol/L BUN 21 H (7-17) mg/dL Creatinine 0.72 (0.52-1.04) mg/dL Estimated GFR > 60.0 (>60) mL/min BUN/Creatinine Ratio 29.2 H (6-22) Glucose 119 H (80-110) mg/dL Calcium 9.2 (8.4-10.2) mg/dL Total Bilirubin 0.3 (0.2-1.3) mg/dL AST 41 H (14-36) IU/L ALT 23 (<35) IU/L Alkaline Phosphatase 83 (38-126) U/L Troponin I < 0.012 (0.01-0.034) ng/mL NT-Pro-B Natriuret Pep (<450) pg/mL Total Protein 7.9 (6.3-8.2) g/dL Albumin 4.5 (3.5-5.0) g/dL Globulin 3.4 (1.7-4.1) g/dL Albumin/Globulin Ratio 1.3 (1.0-2.8) Lipase 115 (23-300) U/L Procalcitonin (<0.5) ng/mL 09/16/19 09/16/19 09/16/19 Range/Units 16:51 16:51 19:27 WBC (4.5-11.0) X10^3/uL RBC (4.0-5.2) X10^6/uL Hgb (12.0-16.0) g/dL Hct (36-46) % MCV (80-100) fL MCH (26-34) PG MCHC (30-36) % RDW (11.6-14.8) % Plt Count (150-400) X10^3/uL Neut % (Auto) (50-75) % Lymph % (Auto) (25-40) % [place] % (Auto) (3-14) % Eos % (Auto) (2-4) % Baso % (Auto) (0-2) % Neut # (Auto) (3351-7771) /uL Lymph # (Auto) (7060-5896) /uL [place] # (Auto) (0-900) /uL Eos # (Auto) (0-450) /uL Baso # (Auto) (0-100) /uL PT (10.1-12.7) SECONDS INR (0.9-1.3) APTT (26.4-36.2) SECONDS Sodium (137-145) mmol/L Potassium (3.4-5.1) mmol/L Chloride (98-107) mmol/L Carbon Dioxide (22-32) mmol/L BUN (7-17) mg/dL Creatinine (0.52-1.04) mg/dL Estimated GFR (>60) mL/min BUN/Creatinine Ratio (6-22) Glucose (80-110) mg/dL Calcium (8.4-10.2) mg/dL Total Bilirubin (0.2-1.3) mg/dL AST (14-36) IU/L ALT (<35) IU/L Alkaline Phosphatase (38-126) U/L Troponin I < 0.012 (0.01-0.034) ng/mL NT-Pro-B Natriuret Pep 47 (<450) pg/mL Total Protein (6.3-8.2) g/dL Albumin (3.5-5.0) g/dL Globulin (1.7-4.1) g/dL Albumin/Globulin Ratio (1.0-2.8) Lipase (23-300) U/L Procalcitonin < 0.05 (<0.5) ng/mL 09/16/19 Range/Units 19:27 WBC (4.5-11.0) X10^3/uL RBC (4.0-5.2) X10^6/uL Hgb (12.0-16.0) g/dL Hct (36-46) % MCV (80-100) fL MCH (26-34) PG MCHC (30-36) % RDW (11.6-14.8) % Plt Count (150-400) X10^3/uL Neut % (Auto) (50-75) % Lymph % (Auto) (25-40) % [place] % (Auto) (3-14) % Eos % (Auto) (2-4) % Baso % (Auto) (0-2) % Neut # (Auto) (2905-7123) /uL Lymph # (Auto) (6634-6472) /uL [place] # (Auto) (0-900) /uL Eos # (Auto) (0-450) /uL Baso # (Auto) (0-100) /uL PT (10.1-12.7) SECONDS INR (0.9-1.3) APTT (26.4-36.2) SECONDS Sodium (137-145) mmol/L Potassium (3.4-5.1) mmol/L Chloride (98-107) mmol/L Carbon Dioxide (22-32) mmol/L BUN (7-17) mg/dL Creatinine (0.52-1.04) mg/dL Estimated GFR (>60) mL/min BUN/Creatinine Ratio (6-22) Glucose (80-110) mg/dL Calcium (8.4-10.2) mg/dL Total Bilirubin (0.2-1.3) mg/dL AST (14-36) IU/L ALT (<35) IU/L Alkaline Phosphatase (38-126) U/L Troponin I (0.01-0.034) ng/mL NT-Pro-B Natriuret Pep 72 (<450) pg/mL Total Protein (6.3-8.2) g/dL Albumin (3.5-5.0) g/dL Globulin (1.7-4.1) g/dL Albumin/Globulin Ratio (1.0-2.8) Lipase (23-300) U/L Procalcitonin (<0.5) ng/mL Discharge Plan Departure Patient Disposition: Home Clinical Impression: COPD exacerbation Discharge Date/Time: 09/16/19 20:30 Instructions: DI for Chronic Obstructive Pulmonary Disease, How to Use a Nebulizer, Albuterol and Ipratropium Oral Inhalation, COPD: When to Call for Help Activity Restrictions/Additional Instructions: Thank you for trusting us with your care today I sent several prescriptions to [facility]. This includes an antibiotic, a prescription of nebulizers,a muscle relaxer for your back pain as well as steroids. Please come back to the emergency department for any acute concerns. Please follow-up with primary care provider in the next few days Please also use a spacer when you use your inhalers Prescriptions: New prednisone 20 mg tablet 40 mg PO DAILY Qty: 10 RF: 0 azithromycin 250 mg tablet See Rx Instructions .ROUTE .COMPLEX Qty: 6 RF: 0 ipratropium-albuterol 0.5 mg-3 mg(2.5 mg base)/3 mL solution for nebulization 3 ml INHALATION Q4H PRN (Reason: shortness of breath or wheezing) Qty: 15 RF: 0 methocarbamol 500 mg tablet 500 mg PO TID PRN (Reason: spasms) Qty: 14 RF: 0 No Action alendronate 70 mg tablet 1 tab PO QWEEK RF: 0 fluticasone propion-salmeterol [Advair Diskus] 500-50 mcg/dose blister with device 1 puff Inhalation BID RF: 0 metoprolol succinate 25 mg tablet extended release 24 hr 1 tab PO QPM RF: 0 albuterol sulfate [ProAir HFA] 90 mcg/actuation HFA aerosol inhaler 1 puff Inhalation DIRECTED RF: 0 furosemide [Lasix] 20 mg tablet 20 mg PO DAILY Qty: 3 RF: 0 magnesium oxide 400 mg Tablet 400 mg PO DAILY RF: 0 cyanocobalamin (vitamin B-12) [Vitamin B-12] 500 mcg Tablet 1 tab PO DAILY RF: 0 benzonatate 100 mg capsule 1 cap PO DIRECTED RF: 0 omeprazole 20 mg Capsule,Delayed Release(Dr/Ec) 20 mg PO DAILY RF: 0 zinc 50 mg Tablet 50 mg PO DAILY RF: 0 cholecalciferol (vitamin D3) [Vitamin D3] 1,000 unit Capsule 1,000 unit PO DAILY RF: 0 coenzyme Q10 [Co Q-10] 200 mg Capsule 400 mg PO DAILY RF: 0 Probiotic 2 ea PO QAM RF: 0 biotin 2,500 mcg Capsule 2 cap PO DAILY RF: 0 vitamin E 450 MG capsule 3 cap PO BIDAC RF: 0 Referrals: Hansel Hanna MD [Primary Care Provider] - <Juno Cruz DO - Last Filed: 09/21/19 18:03> Cosign ED Attending Cosignature Attestation: Dr Cruz Co-Sign Statement: I was available for consultation during this patient's emergency department visit. This chart is signed by myself for administrative purposes only. I did not have direct contact with this patient during this visit. They were seen independently by the APC.
[2019-09-16 17:19] VITALS: PULSE 78; O2SAT 98
[2019-09-16 17:20] LABS: Alanine Aminotransferase 23 IU/L (<35); Albumin 4.5 g/dL (3.5-5.0); Albumin Globulin Ratio 1.3 (1.0-2.8); Alkaline Phosphatase 83 U/L (38-126); Aspartate Aminotransferase 41 IU/L (14-36); BUN Creatinine Ratio 29.2 (6-22); Bilirubin Total 0.3 mg/dL (0.2-1.3); Blood Urea Nitrogen 21 mg/dL (7-17); Calcium 9.2 mg/dL (8.4-10.2); Carbon Dioxide 30 mmol/L (22-32); Chloride 101 mmol/L (98-107); Estimated Glomerular Filt Rate > 60.0 mL/min (>60); Globulin 3.4 g/dL (1.7-4.1); Glucose 119 mg/dL (80-110); HEMOLYSIS < 15 (0-50); Lipase 115 U/L (23-300); Potassium 4.5 mmol/L (3.4-5.1); Sodium 138 mmol/L (137-145); Total Protein 7.9 g/dL (6.3-8.2)
[2019-09-16 17:29] LABS: NT-proBNP (BNP-Adult 18+) 47 pg/mL (<450)
[2019-09-16 17:31] LABS: Troponin I < 0.012 ng/mL (0.01-0.034)
[2019-09-16 17:53] LABS: Procalcitonin < 0.05 ng/mL (<0.5)
[2019-09-16 18:00] VITALS: BP 143/67; PULSE 86; RESP 25; O2SAT 96
[2019-09-16] MEDS: methylPREDNISolone 125 MG/2 ML VIAL IV (18:54)
[2019-09-16] MEDS: KETOROLAC 60 MG/2 ML VIAL 15 MG IV (18:54)
[2019-09-16] MEDS: methocarbamoL 500 MG TABLET PO (18:54)
[2019-09-16 19:00] VITALS: BP 152/73; PULSE 92; RESP 22; O2SAT 97
[2019-09-16 20:00] LABS: Troponin I < 0.012 ng/mL (0.01-0.034)
[2019-09-16 20:11] LABS: NT-proBNP (BNP-Adult 18+) 72 pg/mL (<450)
[2019-09-16] MEDS: ALBUTEROL/IPRATROPIUM 3 ML AMPUL INH ×2 (20:31)
== END 2019-09-16 20:30 | disposition home or self-care (01) ==
PROVIDERS: Emergency Medicine; Emergency Provider Nurse Practitioner Family; PCP Internal Medicine
DX: J44.1 Chronic obstructive pulmonary disease with (acute) exacerbation (principal)
CPT/HCPCS: 36415; 71045; 80053; 83690; 83880; 84145; 84484; 85025; 85610; 85730; 93005; 94640; 96374; 96375; 99285; J1885; J2930

== ENCOUNTER 2019-09-24 10:29 | Inpatient (IN) | payer MEDICARE, SELFPAY ==
[2019-09-24] VITALS (11 sets, daily range): BP systolic 128–161; BP diastolic 72–99; PULSE 91–149; RESP 20–34; TEMP 36.1–36.8; O2SAT 92–96; BMI 25.9
--- NOTE | 2019-09-24 10:42 | DI.RAD.S_ITS ---
PROCEDURE: XR CHEST 1V INDICATIONS: shortness of breath TECHNIQUE: One view of the chest was acquired. COMPARISON: [facility], CR, XR CHEST 1V, 09/16/2019, 16:46. [facility], CR, XR CHEST 2V, 12/30/2017, 10:48. FINDINGS: Surgical changes and devices: None. Lungs and pleura: Lungs are clear except for a chronic mild interstitial prominence previously present. No pleural effusions or pneumothorax. Mediastinum: Mediastinal contours appear normal. Heart size is normal. Bones and chest wall: No suspicious bony lesions. Overlying soft tissues appear unremarkable. IMPRESSION: Chronic mild interstitial prominence, no cardiomegaly or CHF suspected. Suspect prior smoking history. Dictated by: Leoncio Hi M.D. on 09/24/2019 at 11:42 Approved by: Leoncio Hi M.D. on 09/24/2019 at 11:43
--- NOTE | 2019-09-24 11:02 | ED_ITS ---
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 mg/dL Estimated GFR 54.6 L (>60) mL/min BUN/Creatinine Ratio 26.5 H (6-22) Glucose 130 H (80-110) mg/dL Lactate 1.6 (0.7-2.1) mmol/L Calcium 9.6 (8.4-10.2) mg/dL Total Bilirubin 0.5 (0.2-1.3) mg/dL AST 25 (14-36) IU/L ALT 21 (<35) IU/L Alkaline Phosphatase 85 (38-126) U/L Troponin I (0.01-0.034) ng/mL NT-Pro-B Natriuret Pep (<450) pg/mL Total Protein 7.4 (6.3-8.2) g/dL Albumin 4.2 (3.5-5.0) g/dL Globulin 3.2 (1.7-4.1) g/dL Albumin/Globulin Ratio 1.3 (1.0-2.8) Procalcitonin (<0.5) ng/mL Urine Color Urine Appearance Urine pH (4.5-8.0) Ur Specific [place] (1.000-1.035) Urine Protein (Negative) Urine Glucose (UA) (Negative) g/dL Urine Ketones (NEGATIVE) Urine Occult Blood (Negative) Urine Nitrate (Negative) Urine Bilirubin (NEGATIVE) Urine Urobilinogen (0.2) E.U./dL Ur Leukocyte Esterase (NEGATIVE) Urine RBC (0-5/HPF) Urine WBC (0-5/HPF) Ur Squamous Epith Cells (0-5/HPF) Urine Bacteria (None) Ur Culture Indicated? COVID-19 PCR 09/24/19 09/24/19 09/24/19 Range/Units 10:47 10:47 10:47 WBC (4.5-11.0) X10^3/uL RBC (4.0-5.2) X10^6/uL Hgb (12.0-16.0) g/dL Hct (36-46) % MCV (80-100) fL MCH (26-34) PG MCHC (30-36) % RDW (11.6-14.8) % Plt Count (150-400) X10^3/uL Neut % (Auto) (50-75) % Lymph % (Auto) (25-40) % [place] % (Auto) (3-14) % Eos % (Auto) (2-4) % Baso % (Auto) (0-2) % Neut # (Auto) (6955-0731) /uL Lymph # (Auto) (8188-0818) /uL [place] # (Auto) (0-900) /uL Eos # (Auto) (0-450) /uL Baso # (Auto) (0-100) /uL D-Dimer (<230) ng/mL Sodium (137-145) mmol/L Potassium (3.4-5.1) mmol/L Chloride (98-107) mmol/L Carbon Dioxide (22-32) mmol/L BUN (7-17) mg/dL Creatinine (0.52-1.04) mg/dL Estimated GFR (>60) mL/min BUN/Creatinine Ratio (6-22) Glucose (80-110) mg/dL Lactate (0.7-2.1) mmol/L Calcium (8.4-10.2) mg/dL Total Bilirubin (0.2-1.3) mg/dL AST (14-36) IU/L ALT (<35) IU/L Alkaline Phosphatase (38-126) U/L Troponin I < 0.012 (0.01-0.034) ng/mL NT-Pro-B Natriuret Pep 388 (<450) pg/mL Total Protein (6.3-8.2) g/dL Albumin (3.5-5.0) g/dL Globulin (1.7-4.1) g/dL Albumin/Globulin Ratio (1.0-2.8) Procalcitonin < 0.05 (<0.5) ng/mL Urine Color Urine Appearance Urine pH (4.5-8.0) Ur Specific [place] (1.000-1.035) Urine Protein (Negative) Urine Glucose (UA) (Negative) g/dL Urine Ketones (NEGATIVE) Urine Occult Blood (Negative) Urine Nitrate (Negative) Urine Bilirubin (NEGATIVE) Urine Urobilinogen (0.2) E.U./dL Ur Leukocyte Esterase (NEGATIVE) Urine RBC (0-5/HPF) Urine WBC (0-5/HPF) Ur Squamous Epith Cells (0-5/HPF) Urine Bacteria (None) Ur Culture Indicated? COVID-19 PCR 09/24/19 09/24/19 09/24/19 Range/Units 11:40 11:49 11:50 WBC (4.5-11.0) X10^3/uL RBC (4.0-5.2) X10^6/uL Hgb (12.0-16.0) g/dL Hct (36-46) % MCV (80-100) fL MCH (26-34) PG MCHC (30-36) % RDW (11.6-14.8) % Plt Count (150-400) X10^3/uL Neut % (Auto) (50-75) % Lymph % (Auto) (25-40) % [place] % (Auto) (3-14) % Eos % (Auto) (2-4) % Baso % (Auto) (0-2) % Neut # (Auto) (1577-3322) /uL Lymph # (Auto) (1262-7997) /uL [place] # (Auto) (0-900) /uL Eos # (Auto) (0-450) /uL Baso # (Auto) (0-100) /uL D-Dimer 322 H (<230) ng/mL Sodium (137-145) mmol/L Potassium (3.4-5.1) mmol/L Chloride (98-107) mmol/L Carbon Dioxide (22-32) mmol/L BUN (7-17) mg/dL Creatinine (0.52-1.04) mg/dL Estimated GFR (>60) mL/min BUN/Creatinine Ratio (6-22) Glucose (80-110) mg/dL Lactate (0.7-2.1) mmol/L Calcium (8.4-10.2) mg/dL Total Bilirubin (0.2-1.3) mg/dL AST (14-36) IU/L ALT (<35) IU/L Alkaline Phosphatase (38-126) U/L Troponin I (0.01-0.034) ng/mL NT-Pro-B Natriuret Pep (<450) pg/mL Total Protein (6.3-8.2) g/dL Albumin (3.5-5.0) g/dL Globulin (1.7-4.1) g/dL Albumin/Globulin Ratio (1.0-2.8) Procalcitonin (<0.5) ng/mL Urine Color Urine Appearance Urine pH (4.5-8.0) Ur Specific [place] (1.000-1.035) Urine Protein (Negative) Urine Glucose (UA) (Negative) g/dL Urine Ketones (NEGATIVE) Urine Occult Blood (Negative) Urine Nitrate (Negative) Urine Bilirubin (NEGATIVE) Urine Urobilinogen (0.2) E.U./dL Ur Leukocyte Esterase (NEGATIVE) Urine RBC (0-5/HPF) Urine WBC (0-5/HPF) Ur Squamous Epith Cells (0-5/HPF) Urine Bacteria (None) Ur Culture Indicated? COVID-19 PCR Cancelled Negative 09/24/19 Range/Units 12:48 WBC (4.5-11.0) X10^3/uL RBC (4.0-5.2) X10^6/uL Hgb (12.0-16.0) g/dL Hct (36-46) % MCV (80-100) fL MCH (26-34) PG MCHC (30-36) % RDW (11.6-14.8) % Plt Count (150-400) X10^3/uL Neut % (Auto) (50-75) % Lymph % (Auto) (25-40) % [place] % (Auto) (3-14) % Eos % (Auto) (2-4) % Baso % (Auto) (0-2) % Neut # (Auto) (4501-2608) /uL Lymph # (Auto) (6577-9164) /uL [place] # (Auto) (0-900) /uL Eos # (Auto) (0-450) /uL Baso # (Auto) (0-100) /uL D-Dimer (<230) ng/mL Sodium (137-145) mmol/L Potassium (3.4-5.1) mmol/L Chloride (98-107) mmol/L Carbon Dioxide (22-32) mmol/L BUN (7-17) mg/dL Creatinine (0.52-1.04) mg/dL Estimated GFR (>60) mL/min BUN/Creatinine Ratio (6-22) Glucose (80-110) mg/dL Lactate (0.7-2.1) mmol/L Calcium (8.4-10.2) mg/dL Total Bilirubin (0.2-1.3) mg/dL AST (14-36) IU/L ALT (<35) IU/L Alkaline Phosphatase (38-126) U/L Troponin I (0.01-0.034) ng/mL NT-Pro-B Natriuret Pep (<450) pg/mL Total Protein (6.3-8.2) g/dL Albumin (3.5-5.0) g/dL Globulin (1.7-4.1) g/dL Albumin/Globulin Ratio (1.0-2.8) Procalcitonin (<0.5) ng/mL Urine Color Yellow Urine Appearance Clear Urine pH 7.5 (4.5-8.0) Ur Specific [place] 1.010 (1.000-1.035) Urine Protein Negative (Negative) Urine Glucose (UA) Negative (Negative) g/dL Urine Ketones Negative (NEGATIVE) Urine Occult Blood Negative (Negative) Urine Nitrate Negative (Negative) Urine Bilirubin Negative (NEGATIVE) Urine Urobilinogen 0.2 (0.2) E.U./dL Ur Leukocyte Esterase Negative (NEGATIVE) Urine RBC 0-1/hpf (0-5/HPF) Urine WBC 0-1/hpf (0-5/HPF) Ur Squamous Epith Cells 0-1 /hpf (0-5/HPF) Urine Bacteria Many (>30) H (None) Ur Culture Indicated? Cult not indicated COVID-19 PCR Imaging Data Chest x-ray: Attestation: I personally reviewed and interpreted this imaging study as follows: Radiologist's Impression: [address] [address] XRay Report Signed Patient: Krys Mullins EMR#: [id number] : 9Acct:[id number] Age/Sex: 79 / FDate of Service: 09/24/19 Loc: ED Accession Number: [id number] Procedure: XR chest 1V Ordering Provider: Beck Wade MD PROCEDURE: XR CHEST 1V INDICATIONS: shortness of breath TECHNIQUE: One view of the chest was acquired. COMPARISON: [facility], CR, XR CHEST 1V, 09/16/2019, 16:46. [facility], CR, XR CHEST 2V, 12/30/2017, 10:48. FINDINGS: Surgical changes and devices: None. Lungs and pleura: Lungs are clear except for a chronic mild interstitial prominence previously present. No pleural effusions or pneumothorax. Mediastinum: Mediastinal contours appear normal. Heart size is normal. Bones and chest wall: No suspicious bony lesions. Overlying soft tissues appear unremarkable. IMPRESSION: Chronic mild interstitial prominence, no cardiomegaly or CHF suspected. Suspect prior smoking history. Dictated by: Leoncio Hi M.D. on 09/24/2019 at 11:42 Approved by: Leoncio iH M.D. on 09/24/2019 at 11:43 ECG Data Attestation: I personally reviewed and interpreted this ECG as follows: (Sinus tachycardia with occasional PVCs, ventricular rate 100 CO 132 QRS 78 QT 317 P -1 R 24 T 52) Prior ECG tracings: not available for review MDM Narrative Medical decision making narrative: This is an 79-year-old with a history of COPD who presents to the emergency department with a 2 week history of worsening shortness of breath that has been significantly worse over the last few days with associated mid back pain. It has been unrelieved with her regular COPD medications as well as 3 times daily DuoNeb nebulizer treatments at home for the last few days. Differential diagnoses that were considered include COPD exacerbation, mi, PE, pneumonia, sepsis, aortic dissection, aortic aneurysm. Patient's level of respiratory distress, and exam was consistent with a COPD exacerbation, however given her elevated heart rate her back pain there was some consideration of a possible PE, however D dimer returned unremarkable with age adjustment, and she was ultimately admitted to the hospitalist service in the care of Dr. Tripathi. <Beck Wade MD - Last Filed: 10/08/19 07:55> Lab Data Labs: Lab Results 09/24/19 09/24/19 09/24/19 Range/Units 10:47 10:47 10:47 WBC 17.3 H (4.5-11.0) X10^3/uL RBC 4.30 (4.0-5.2) X10^6/uL Hgb 12.7 (12.0-16.0) g/dL Hct 38.4 (36-46) % MCV 89.2 (80-100) fL MCH 29.6 (26-34) PG MCHC 33.2 (30-36) % RDW 13.7 (11.6-14.8) % Plt Count 311 (150-400) X10^3/uL Neut % (Auto) 87.8 H (50-75) % Lymph % (Auto) 4.9 L (25-40) % [place] % (Auto) 5.8 (3-14) % Eos % (Auto) 1.1 L (2-4) % Baso % (Auto) 0.4 (0-2) % Neut # (Auto) 575[address] H (0786-4948) /uL Lymph # (Auto) 900 L (3353-2320) /uL [place] # (Auto) 1000 H (0-900) /uL Eos # (Auto) 200 (0-450) /uL Baso # (Auto) 100 (0-100) /uL D-Dimer (<230) ng/mL Sodium 137 (137-145) mmol/L Potassium 4.5 (3.4-5.1) mmol/L Chloride 100 (98-107) mmol/L Carbon Dioxide 26 (22-32) mmol/L BUN 26 H (7-17) mg/dL Creatinine 0.98 (0.52-1.04) mg/dL Estimated GFR 54.6 L (>60) mL/min BUN/Creatinine Ratio 26.5 H (6-22) Glucose 130 H (80-110) mg/dL Lactate 1.6 (0.7-2.1) mmol/L Calcium 9.6 (8.4-10.2) mg/dL Total Bilirubin 0.5 (0.2-1.3) mg/dL AST 25 (14-36) IU/L ALT 21 (<35) IU/L Alkaline Phosphatase 85 (38-126) U/L Troponin I (0.01-0.034) ng/mL NT-Pro-B Natriuret Pep (<450) pg/mL Total Protein 7.4 (6.3-8.2) g/dL Albumin 4.2 (3.5-5.0) g/dL Globulin 3.2 (1.7-4.1) g/dL Albumin/Globulin Ratio 1.3 (1.0-2.8) Procalcitonin (<0.5) ng/mL Urine Color Urine Appearance Urine pH (4.5-8.0) Ur Specific [place] (1.000-1.035) Urine Protein (Negative) Urine Glucose (UA) (Negative) g/dL Urine Ketones (NEGATIVE) Urine Occult Blood (Negative) Urine Nitrate (Negative) Urine Bilirubin (NEGATIVE) Urine Urobilinogen (0.2) E.U./dL Ur Leukocyte Esterase (NEGATIVE) Urine RBC (0-5/HPF) Urine WBC (0-5/HPF) Ur Squamous Epith Cells (0-5/HPF) Urine Bacteria (None) Ur Culture Indicated? COVID-19 PCR 05/29/20 05/29/20 05/29/20 Range/Units 10:47 10:47 10:47 WBC (4.5-11.0) X10^3/uL RBC (4.0-5.2) X10^6/uL Hgb (12.0-16.0) g/dL Hct (36-46) % MCV (80-100) fL MCH (26-34) PG MCHC (30-36) % RDW (11.6-14.8) % Plt Count (150-400) X10^3/uL Neut % (Auto) (50-75) % Lymph % (Auto) (25-40) % [place] % (Auto) (3-14) % Eos % (Auto) (2-4) % Baso % (Auto) (0-2) % Neut # (Auto) (8271-7607) /uL Lymph # (Auto) (4759-8075) /uL [place] # (Auto) (0-900) /uL Eos # (Auto) (0-450) /uL Baso # (Auto) (0-100) /uL D-Dimer (<230) ng/mL Sodium (137-145) mmol/L Potassium (3.4-5.1) mmol/L Chloride (98-107) mmol/L Carbon Dioxide (22-32) mmol/L BUN (7-17) mg/dL Creatinine (0.52-1.04) mg/dL Estimated GFR (>60) mL/min BUN/Creatinine Ratio (6-22) Glucose (80-110) mg/dL Lactate (0.7-2.1) mmol/L Calcium (8.4-10.2) mg/dL Total Bilirubin (0.2-1.3) mg/dL AST (14-36) IU/L ALT (<35) IU/L Alkaline Phosphatase (38-126) U/L Troponin I < 0.012 (0.01-0.034) ng/mL NT-Pro-B Natriuret Pep 388 (<450) pg/mL Total Protein (6.3-8.2) g/dL Albumin (3.5-5.0) g/dL Globulin (1.7-4.1) g/dL Albumin/Globulin Ratio (1.0-2.8) Procalcitonin < 0.05 (<0.5) ng/mL Urine Color Urine Appearance Urine pH (4.5-8.0) Ur Specific [place] (1.000-1.035) Urine Protein (Negative) Urine Glucose (UA) (Negative) g/dL Urine Ketones (NEGATIVE) Urine Occult Blood (Negative) Urine Nitrate (Negative) Urine Bilirubin (NEGATIVE) Urine Urobilinogen (0.2) E.U./dL Ur Leukocyte Esterase (NEGATIVE) Urine RBC (0-5/HPF) Urine WBC (0-5/HPF) Ur Squamous Epith Cells (0-5/HPF) Urine Bacteria (None) Ur Culture Indicated? COVID-19 PCR 09/24/19 09/24/19 09/24/19 Range/Units 11:40 11:49 11:50 WBC (4.5-11.0) X10^3/uL RBC (4.0-5.2) X10^6/uL Hgb (12.0-16.0) g/dL Hct (36-46) % MCV (80-100) fL MCH (26-34) PG MCHC (30-36) % RDW (11.6-14.8) % Plt Count (150-400) X10^3/uL Neut % (Auto) (50-75) % Lymph % (Auto) (25-40) % [place] % (Auto) (3-14) % Eos % (Auto) (2-4) % Baso % (Auto) (0-2) % Neut # (Auto) (6400-1263) /uL Lymph # (Auto) (4350-3297) /uL [place] # (Auto) (0-900) /uL Eos # (Auto) (0-450) /uL Baso # (Auto) (0-100) /uL D-Dimer 322 H (<230) ng/mL Sodium (137-145) mmol/L Potassium (3.4-5.1) mmol/L Chloride (98-107) mmol/L Carbon Dioxide (22-32) mmol/L BUN (7-17) mg/dL Creatinine (0.52-1.04) mg/dL Estimated GFR (>60) mL/min BUN/Creatinine Ratio (6-22) Glucose (80-110) mg/dL Lactate (0.7-2.1) mmol/L Calcium (8.4-10.2) mg/dL Total Bilirubin (0.2-1.3) mg/dL AST (14-36) IU/L ALT (<35) IU/L Alkaline Phosphatase (38-126) U/L Troponin I (0.01-0.034) ng/mL NT-Pro-B Natriuret Pep (<450) pg/mL Total Protein (6.3-8.2) g/dL Albumin (3.5-5.0) g/dL Globulin (1.7-4.1) g/dL Albumin/Globulin Ratio (1.0-2.8) Procalcitonin (<0.5) ng/mL Urine Color Urine Appearance Urine pH (4.5-8.0) Ur Specific [place] (1.000-1.035) Urine Protein (Negative) Urine Glucose (UA) (Negative) g/dL Urine Ketones (NEGATIVE) Urine Occult Blood (Negative) Urine Nitrate (Negative) Urine Bilirubin (NEGATIVE) Urine Urobilinogen (0.2) E.U./dL Ur Leukocyte Esterase (NEGATIVE) Urine RBC (0-5/HPF) Urine WBC (0-5/HPF) Ur Squamous Epith Cells (0-5/HPF) Urine Bacteria (None) Ur Culture Indicated? COVID-19 PCR Cancelled Negative 09/24/19 Range/Units 12:48 WBC (4.5-11.0) X10^3/uL RBC (4.0-5.2) X10^6/uL Hgb (12.0-16.0) g/dL Hct (36-46) % MCV (80-100) fL MCH (26-34) PG MCHC (30-36) % RDW (11.6-14.8) % Plt Count (150-400) X10^3/uL Neut % (Auto) (50-75) % Lymph % (Auto) (25-40) % [place] % (Auto) (3-14) % Eos % (Auto) (2-4) % Baso % (Auto) (0-2) % Neut # (Auto) (6264-6361) /uL Lymph # (Auto) (6338-3649) /uL [place] # (Auto) (0-900) /uL Eos # (Auto) (0-450) /uL Baso # (Auto) (0-100) /uL D-Dimer (<230) ng/mL Sodium (137-145) mmol/L Potassium (3.4-5.1) mmol/L Chloride (98-107) mmol/L Carbon Dioxide (22-32) mmol/L BUN (7-17) mg/dL Creatinine (0.52-1.04) mg/dL Estimated GFR (>60) mL/min BUN/Creatinine Ratio (6-22) Glucose (80-110) mg/dL Lactate (0.7-2.1) mmol/L Calcium (8.4-10.2) mg/dL Total Bilirubin (0.2-1.3) mg/dL AST (14-36) IU/L ALT (<35) IU/L Alkaline Phosphatase (38-126) U/L Troponin I (0.01-0.034) ng/mL NT-Pro-B Natriuret Pep (<450) pg/mL Total Protein (6.3-8.2) g/dL Albumin (3.5-5.0) g/dL Globulin (1.7-4.1) g/dL Albumin/Globulin Ratio (1.0-2.8) Procalcitonin (<0.5) ng/mL Urine Color Yellow Urine Appearance Clear Urine pH 7.5 (4.5-8.0) Ur Specific [place] 1.010 (1.000-1.035) Urine Protein Negative (Negative) Urine Glucose (UA) Negative (Negative) g/dL Urine Ketones Negative (NEGATIVE) Urine Occult Blood Negative (Negative) Urine Nitrate Negative (Negative) Urine Bilirubin Negative (NEGATIVE) Urine Urobilinogen 0.2 (0.2) E.U./dL Ur Leukocyte Esterase Negative (NEGATIVE) Urine RBC 0-1/hpf (0-5/HPF) Urine WBC 0-1/hpf (0-5/HPF) Ur Squamous Epith Cells 0-1 /hpf (0-5/HPF) Urine Bacteria Many (>30) H (None) Ur Culture Indicated? Cult not indicated COVID-19 PCR Discharge Plan Departure Patient Disposition: Admitted As Inpatient Clinical Impression: Acute exacerbation of chronic obstructive pulmonary disease Discharge Date/Time: 09/24/19 14:04 Instructions: DI for Chronic Obstructive Pulmonary Disease, Be a Partner in Your COPD Care, COPD: When to Call for Help Referrals: Hansel Hanna MD [Primary Care Provider] - (PLEASE CALL TO SCHEDULE YOUR FOLLOW UP APPOINTMENT W/ DR. HANNA.) Admit Date/Time: 09/24/19 13:42 Admit Provider: Kevin Tripathi
[2019-09-24 11:11] LABS: Add Manual Diff / Slide Review NO; Basophils Absolute Auto 100 /uL (0-100); Basophils Percent Auto 0.4 % (0-2); Eosinophils Absolute Auto 200 /uL (0-450); Eosinophils Percent Auto 1.1 % (2-4); Hematocrit 38.4 % (36-46); Hemoglobin 12.7 g/dL (12.0-16.0); Lymphocytes Absolute Auto 900 /uL (1100-4500); Lymphocytes Percent Auto 4.9 % (25-40); Mean Corpuscular HGB Conc 33.2 % (30-36); Mean Corpuscular Hemoglobin 29.6 PG (26-34); Mean Corpuscular Volume 89.2 fL (80-100); Monocytes Absolute Auto 1000 /uL (0-900); Monocytes Percent Auto 5.8 % (3-14); Neutrophils Absolute Auto 15200 /uL (1500-7000); Neutrophils Percent Auto 87.8 % (50-75); Platelet Count 311 X10^3/uL (150-400); Red Cell Distribution Width 13.7 % (11.6-14.8); White Blood Cell Count 17.3 X10^3/uL (4.5-11.0)
[2019-09-24 11:23] LABS: Lactate (Lactic Acid) 1.6 mmol/L (0.7-2.1)
[2019-09-24 11:24] LABS: Alanine Aminotransferase 21 IU/L (<35); Albumin 4.2 g/dL (3.5-5.0); Albumin Globulin Ratio 1.3 (1.0-2.8); Alkaline Phosphatase 85 U/L (38-126); Aspartate Aminotransferase 25 IU/L (14-36); BUN Creatinine Ratio 26.5 (6-22); Bilirubin Total 0.5 mg/dL (0.2-1.3); Blood Urea Nitrogen 26 mg/dL (7-17); Calcium 9.6 mg/dL (8.4-10.2); Carbon Dioxide 26 mmol/L (22-32); Chloride 100 mmol/L (98-107); Estimated Glomerular Filt Rate 54.6 mL/min (>60); Globulin 3.2 g/dL (1.7-4.1); Glucose 130 mg/dL (80-110); HEMOLYSIS < 15 (0-50); Potassium 4.5 mmol/L (3.4-5.1); Sodium 137 mmol/L (137-145); Total Protein 7.4 g/dL (6.3-8.2)
[2019-09-24] MEDS: ALBUTEROL/IPRATROPIUM 3 ML AMPUL INH ×2 (11:29→19:15)
--- NOTE | 2019-09-24 11:59 | PC.NURSE ---
patient states exposure to asbestos and DDT as a teenager. 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 Smoked 1 pack of cigarrettes per day 40 years ago. [place].
[2019-09-24] MEDS: SODIUM CHLORIDE 0.9% 1,000 ML 150 ML IV (12:02)
[2019-09-24] MEDS: methylPREDNISolone 125 MG/2 ML VIAL IV (12:02)
[2019-09-24 12:07] LABS: NT-proBNP (BNP-Adult 18+) 388 pg/mL (<450); Troponin I < 0.012 ng/mL (0.01-0.034)
[2019-09-24 12:39] LABS: D Dimer 322 ng/mL (<230)
[2019-09-24 12:45] LABS: COVID19 -Nasal RAPID Negative (Negative)
[2019-09-24 13:08] LABS: Appearance Urine UA CLEAR; Bilirubin Urine UA NEGATIVE (NEGATIVE); Color Urine UA YELLOW; Glucose Urine UA NEGATIVE (Negative); Ketones Urine UA NEGATIVE (NEGATIVE); Leukocyte Esterase Urine UA NEGATIVE (NEGATIVE); Nitrite Urine UA NEGATIVE (Negative); Occult Blood Urine UA NEGATIVE (Negative); Protein Urine UA NEGATIVE (Negative); Urobilinogen Urine UA 0.2 E.U./dL (0.2)
[2019-09-24 13:20] LABS: pH Urine UA 7.5 (4.5-8.0)
[2019-09-24 13:24] LABS: Bacteria Urine Many (>30); Culture Indicated Urine Cult Not Indicated; RBC Urine 0-1/HPF (0-5/HPF); Squamous Epithelial Cell Urine 0-1 /HPF (0-5/HPF); WBC Urine 0-1/HPF (0-5/HPF)
--- NOTE | 2019-09-24 15:19 | PC.NURSE ---
Day shift note: 1425: Received report from Juan Antonio RN, todd RN and Dr. Tripathi awaiting for patient arrival to unit. 1500: Received patient from ED via gurney, awake, alert and pleasant. Received on RA, O2 sat 93%. Tachypnea noted, VS 128/99, RR 28, HR 118, and afebrile. Oriented to room and environment, call light within reach. Report given to Linda MEHTA at 1510.
--- NOTE | 2019-09-24 16:33 | DI.CT.S_ITS ---
PROCEDURE: CT ANGIO CHEST PE PROTOCOL INDICATIONS: r/o PE TECHNIQUE: After the administration of intravenous contrast, 2 mm thick sections acquired from the pulmonary apices to the posterior costophrenic angles. 3-dimensional maximum intensity projection (MIP) coronal and sagittal reformats were then acquired through the thorax. For radiation dose reduction, the following was used: automated exposure control, adjustment of mA and/or kV according to patient size. COMPARISON: None. FINDINGS: Image quality: Excellent. Pulmonary arteries: Pulmonary arteries are normal in size, and demonstrate no intraluminal filling defects to suggest central pulmonary embolism. Lungs and pleura: Lungs are abnormal with what appears to be centrilobular emphysema and several small areas of alveolar scarring without apparent suggestive of multifocal pneumonia. Bronchial wall thickening is present over the lungs symmetrically, best seen at the lung bases, consistent with mild chronic bronchitis. No bronchiectasis is seen.. No pleural effusions or pneumothorax. Central and peripheral airways are patent. Mediastinum: Heart size is normal, without pericardial effusion. No mediastinal or hilar adenopathy. Thoracic aorta is normal in caliber and enhancement. Esophagus is normal in caliber, without hiatal hernia. Bones and chest wall: No suspicious bony lesions. Ribs and thoracic spine appear intact throughout. Thyroid gland appears normal where well visualized.. No axillary or supraclavicular adenopathy. Abdomen: Visualized upper abdominal solid organs appear normal in the early arterial phase of enhancement. IMPRESSION: Suspect COPD and chronic bronchitis. No evidence of pulmonary embolus. Minimal patchy lung scarring. Dictated by: Leoncio Hi M.D. on 09/24/2019 at 17:38 Approved by: Leoncio Hi M.D. on 09/24/2019 at 17:41
[2019-09-24 17:29] LABS: Procalcitonin < 0.05 ng/mL (<0.5)
--- NOTE | 2019-09-24 18:00 | P.HP_ITS ---
History of Present Illness History of Present Illness Date Patient Seen: 09/24/19 Time Patient Seen: 17:00 Chief complaint: Sent over from Doctors, Hard time breathing Narrative: Patient is 79-year-old female with history of COPD, past nicotine dependence, asbestos exposure in childhood who presented to emergency department because of persistent dyspnea and severe pain across her thoracic back. Patient states she has struggled with her breathing for the past few weeks. She has cough productive of yellow phlegm which is typical for her. She denies hemoptysis. She was evaluated in the ER on September 15 and discharged on prednisone and Zithromax. She has not noticed improvement since then. She gets extremely out of breath just walking a few steps. She also reports persistent worsening pain across her thoracic back. The pain is worse with cough and taki ng deep breaths. In the ER noted to be tachycardic, tachypneic with O2 sats of 93% on room air. Chest x-ray showed chronic interstitial changes. She has WBC of 17 having taken prednisone recently with a normal procalcitonin less than 0.05. Her troponin and BMP were normal. Her D-dimer was normal for age at 322. Patient was given nebulizer and IV Solu-Medrol treatments in the ED without improvement and deemed appropriate for admission. Patient History Medical History (Updated 09/24/19 @ 18:07 by Kevin Tripathi MD) COPD (chronic obstructive pulmonary disease) (Acute) Femur fracture, right (Acute) Tibia fracture (Acute) Family & Social History Safety & Behavioral: Feels Safe in Current Yes Environment Been Physically Hurt or No Threatened By a Person Tobacco & Substance use: Smoking Status Former smoker alcohol intake frequency holiday/special occasion Substance Use Type does not use Meds Home Medications and Allergies Home Medications Medication Instructions Recorded Confirmed Type Probiotic 2 ea PO QAM 09/25/17 09/25/17 History albuterol sulfate [ProAir HFA] 1 puff INHALATION DIRECTED 09/25/17 09/25/17 History alendronate 1 tab PO QWEEK 09/25/17 09/25/17 History benzonatate 1 cap PO DIRECTED 09/25/17 09/25/17 History biotin 2 cap PO DAILY 09/25/17 09/25/17 History cholecalciferol (vitamin D3) 1,000 unit PO DAILY 09/25/17 09/25/17 History [Vitamin D3] coenzyme Q10 [Co Q-10] 400 mg PO DAILY 09/25/17 09/25/17 History cyanocobalamin (vitamin B-12) 1 tab PO DAILY 09/25/17 09/25/17 History [Vitamin B-12] fluticasone propion-salmeterol 1 puff INHALATION BID 09/25/17 09/25/17 History [Advair Diskus] furosemide [Lasix] 20 mg PO DAILY #3 tab 09/25/17 Rx magnesium oxide 400 mg PO DAILY 09/25/17 09/25/17 History metoprolol succinate 1 tab PO QPM 09/25/17 09/25/17 History omeprazole 20 mg PO DAILY 09/25/17 09/25/17 History vitamin E 3 cap PO BIDAC 09/25/17 09/25/17 History zinc 50 mg PO DAILY 09/25/17 09/25/17 History azithromycin See Rx Instructions .ROUTE 09/16/19 Rx .COMPLEX #6 tab ipratropium-albuterol 3 ml INHALATION Q4H PRN #15 ml 09/16/19 Rx methocarbamol 500 mg PO TID PRN #14 tab 09/16/19 Rx prednisone 40 mg PO DAILY #10 tab 09/16/19 Rx Allergies Allergy/AdvReac Type Severity Reaction Status Date / Time No Known Drug Allergies Allergy Verified 09/24/19 10:40 Review of Systems Review of Systems ROS: Yes All systems reviewed with the patient and are negative except as otherwise documented Exam Vital Signs (past 8 hours): - 09/24/19 10:40 09/24/19 11:09 09/24/19 11:40 Temperature 98.2 F Pulse Rate 126 H 129 H 123 H Respiratory Rate 34 H 24 34 H Blood Pressure 161/76 H Blood Pressure [Right Arm] Pulse Oximetry 93 95 96 09/24/19 12:17 09/24/19 12:47 09/24/19 14:02 Temperature Pulse Rate 127 H 149 H 122 H Respiratory Rate 23 30 H Blood Pressure 139/72 Blood Pressure [Right Arm] 139/72 139/72 Pulse Oximetry 94 96 92 09/24/19 16:02 09/24/19 17:03 Temperature 98.0 F Pulse Rate 118 H Respiratory Rate 32 H Blood Pressure 128/99 H Blood Pressure [Right Arm] Pulse Oximetry 93 93 Oxygen Delivery Method Room Air Narrative Exam Narrative: General: Alert female who has labored breathing with talking HEENT: Pupils equal Oropharynx: Unremarkable Neck: No lymphadenopathy Lungs: Breathing labored, bilateral inspiratory and expiratory wheeze, no crackles Heart: Regular rhythm no murmur Abdomen: Soft and nontender, no HSM Extremities: Skin warm and dry, No edema Neurological: Sensorium intact, no focal weakness Objective Labs Result Diagrams: 09/24/19 10:47 09/24/19 10:47 Labs: Laboratory Results - last 24 hr 09/24/19 09/24/19 09/24/19 10:47 10:47 10:47 WBC 17.3 H RBC 4.30 Hgb 12.7 Hct 38.4 MCV 89.2 MCH 29.6 MCHC 33.2 RDW 13.7 Plt Count 311 Neut % (Auto) 87.8 H Lymph % (Auto) 4.9 L [place] % (Auto) 5.8 Eos % (Auto) 1.1 L Baso % (Auto) 0.4 Neut # (Auto) 12781 H Lymph # (Auto) 900 L [place] # (Auto) 1000 H Eos # (Auto) 200 Baso # (Auto) 100 D-Dimer Sodium 137 Potassium 4.5 Chloride 100 Carbon Dioxide 26 BUN 26 H Creatinine 0.98 Estimated GFR 54.6 L BUN/Creatinine Ratio 26.5 H Glucose 130 H Lactate 1.6 Calcium 9.6 Total Bilirubin 0.5 AST 25 ALT 21 Alkaline Phosphatase 85 Troponin I NT-Pro-B Natriuret Pep Total Protein 7.4 Albumin 4.2 Globulin 3.2 Albumin/Globulin Ratio 1.3 Procalcitonin Urine Color Urine Appearance Urine pH Ur Specific [place] Urine Protein Urine Glucose (UA) Urine Ketones Urine Occult Blood Urine Nitrate Urine Bilirubin Urine Urobilinogen Ur Leukocyte Esterase Urine RBC Urine WBC Ur Squamous Epith Cells Urine Bacteria Ur Culture Indicated? COVID-19 PCR 09/24/19 09/24/19 09/24/19 10:47 10:47 10:47 WBC RBC Hgb Hct MCV MCH MCHC RDW Plt Count Neut % (Auto) Lymph % (Auto) [place] % (Auto) Eos % (Auto) Baso % (Auto) Neut # (Auto) Lymph # (Auto) [place] # (Auto) Eos # (Auto) Baso # (Auto) D-Dimer Sodium Potassium Chloride Carbon Dioxide BUN Creatinine Estimated GFR BUN/Creatinine Ratio Glucose Lactate Calcium Total Bilirubin AST ALT Alkaline Phosphatase Troponin I < 0.012 NT-Pro-B Natriuret Pep 388 Total Protein Albumin Globulin Albumin/Globulin Ratio Procalcitonin < 0.05 Urine Color Urine Appearance Urine pH Ur Specific [place] Urine Protein Urine Glucose (UA) Urine Ketones Urine Occult Blood Urine Nitrate Urine Bilirubin Urine Urobilinogen Ur Leukocyte Esterase Urine RBC Urine WBC Ur Squamous Epith Cells Urine Bacteria Ur Culture Indicated? COVID-19 PCR 09/24/19 09/24/19 09/24/19 11:40 11:49 11:50 WBC RBC Hgb Hct MCV MCH MCHC RDW Plt Count Neut % (Auto) Lymph % (Auto) [place] % (Auto) Eos % (Auto) Baso % (Auto) Neut # (Auto) Lymph # (Auto) [place] # (Auto) Eos # (Auto) Baso # (Auto) D-Dimer 322 H Sodium Potassium Chloride Carbon Dioxide BUN Creatinine Estimated GFR BUN/Creatinine Ratio Glucose Lactate Calcium Total Bilirubin AST ALT Alkaline Phosphatase Troponin I NT-Pro-B Natriuret Pep Total Protein Albumin Globulin Albumin/Globulin Ratio Procalcitonin Urine Color Urine Appearance Urine pH Ur Specific [place] Urine Protein Urine Glucose (UA) Urine Ketones Urine Occult Blood Urine Nitrate Urine Bilirubin Urine Urobilinogen Ur Leukocyte Esterase Urine RBC Urine WBC Ur Squamous Epith Cells Urine Bacteria Ur Culture Indicated? COVID-19 PCR Cancelled Negative 09/24/19 12:48 WBC RBC Hgb Hct MCV MCH MCHC RDW Plt Count Neut % (Auto) Lymph % (Auto) [place] % (Auto) Eos % (Auto) Baso % (Auto) Neut # (Auto) Lymph # (Auto) [place] # (Auto) Eos # (Auto) Baso # (Auto) D-Dimer Sodium Potassium Chloride Carbon Dioxide BUN Creatinine Estimated GFR BUN/Creatinine Ratio Glucose Lactate Calcium Total Bilirubin AST ALT Alkaline Phosphatase Troponin I NT-Pro-B Natriuret Pep Total Protein Albumin Globulin Albumin/Globulin Ratio Procalcitonin Urine Color Yellow Urine Appearance Clear Urine pH 7.5 Ur Specific [place] 1.010 Urine Protein Negative Urine Glucose (UA) Negative Urine Ketones Negative Urine Occult Blood Negative Urine Nitrate Negative Urine Bilirubin Negative Urine Urobilinogen 0.2 Ur Leukocyte Esterase Negative Urine RBC 0-1/hpf Urine WBC 0-1/hpf Ur Squamous Epith Cells 0-1 /hpf Urine Bacteria Many (>30) H Ur Culture Indicated? Cult not indicated COVID-19 PCR Assessment & Plan Assessment & Plan narrative: This is an 79-year-old female with COPD presents due to COPD exacerbation with failure of outpatient management. 1. Acute COPD exacerbation, present on admission, active -patient with wheezing and labored breathing, sats okay, previously treated with outpatient course of prednisone and Zithromax -treat with Solu-Medrol 60 mg IV q.12 hours, Augmentin 875 mg b.i.d. -RT eval and treat for nebulizer treatments -continue patient's Advair -sputum culture 2. Acute thoracic back pain, present on admission, active -CTA ruled out for pulmonary embolism -treat for musculoskeletal pain with Tylenol and methocarbamol as needed 3. Miscellaneous -continue patient's routine metoprolol, furosemide, omeprazole Admit status: Inpatient acute care DVT prophylaxis: Enoxaparin Code status: Full code though patient would not want to remain on ventilator if situation is hopeless
[2019-09-24] MEDS: ACETAMINOPHEN 325 MG TABLET 650 MG PO (18:10)
--- NOTE | 2019-09-24 18:21 | PC.NURSE ---
Pt has home meds (4) in pharmacy
[2019-09-24] MEDS: methocarbamoL 500 MG TABLET PO (19:14)
[2019-09-24] MEDS: FLUTICASONE/SALMETEROL 500/50 60 PUFF DISKUS INH (19:16)
[2019-09-24] MEDS: methylPREDNISolone 125 MG/2 ML VIAL 60 MG IV (20:09)
[2019-09-24] MEDS: AMOXICILLIN/CLAV 875/125 MG 1 TAB PO (20:09)
--- NOTE | 2019-09-24 21:57 | PC.NURSE ---
Pt is A and O x 4, VSS, but HR tachy and variable 100-120. Chronic mid back pain from previous accident and L leg surgeries, rates 6-7/10. SOB with ambulation and repositioning in bed, states she is tired. Expiratory wheezes bilaterally. O2 sats 92-94 % on RA. Able to void BSC qs. +BT.
[2019-09-25] VITALS (20 sets, daily range): BP systolic 106–143; BP diastolic 57–93; PULSE 80–128; RESP 16–24; TEMP 36.1–36.8; O2SAT 91–95
[2019-09-25] MEDS: ALBUTEROL/IPRATROPIUM 3 ML AMPUL INH ×4 (00:44→19:21)
[2019-09-25] MEDS: ACETAMINOPHEN 325 MG TABLET 650 MG PO ×3 (01:41→15:45)
[2019-09-25] MEDS: METOPROLOL ER 25 MG TABLET PO ×2 (02:01→08:56)
--- NOTE | 2019-09-25 02:31 | PC.NURSE ---
Addendum entered by Jami Self R.N. 09/25/19 05:52: States back pain this morning is 6/10 and described as a deep ache at rest and sharp with movement; medicated with Roboxin and warm blanket applied for comfort. Not as SOB when up to BSC this morning. HR continues to be elevated in 120 range; [address] with frequent PVC's and PAC's. Original Note: Patient seen and assessed at 0040. Is alert and oriented. Breath sounds diminished but CTA with RA sat of 93%; is SOB which is exacerbated by activity. HR irregular and tachy in 120's although 0000 telemetry reading was SR; JOB HAND made aware. Denies nausea. BT present and is passing flatus. Able to turn self in bed. Up to BSC with SBA and voiding without dysuria. Noted trace left LE edema. Did complain of 5/10 thoracic back pain which she has had over past 2 weeks; declined offer of pain medication at that time but was given Tylenol at 0141 for 8/10 back pain. Fall risk score is moderate; bed alarm is activated. Placed on contact isolation at start of shift as sputum culture is showing gram + cocci; educated patient on isolation precautions and she verbalizes understanding.
[2019-09-25] MEDS: PANTOPRAZOLE 20 MG TABLET PO (05:42)
[2019-09-25] MEDS: methocarbamoL 500 MG TABLET PO (05:46)
[2019-09-25] MEDS: FLUTICASONE/SALMETEROL 500/50 60 PUFF DISKUS INH ×2 (06:23→17:04)
[2019-09-25] MEDS: SODIUM CHLORIDE 0.9% FLUSH 10 ML IV ×2 (09:02→20:01)
[2019-09-25] MEDS: ENOXAPARIN 40 MG/0.4 ML SYRINGE SUBCUT (09:02)
[2019-09-25] MEDS: MAGNESIUM OXIDE 400 MG TABLET PO (09:02)
[2019-09-25] MEDS: FUROSEMIDE 20 MG TABLET PO (09:02)
[2019-09-25] MEDS: methylPREDNISolone 125 MG/2 ML VIAL 60 MG IV ×2 (09:03→20:01)
[2019-09-25] MEDS: AMOXICILLIN/CLAV 875/125 MG 1 TAB PO ×2 (09:03→20:02)
--- NOTE | 2019-09-25 09:24 | PC.NURSE ---
Addendum entered by Marianna Emmanuel R.N. 09/25/19 13:02: Patient continue with mild SOB at rest, unable to lie flat, requires HOB elevated. SOB exacerbates after activity, ambulating, and post meal. Reports some improved in breathing effort in comparison to day of admission 09/23. Speaks in short sentences. Continue on RA, sats between 90 - 94%. Skin warm, pink, and dry. Calls appropriately for staff assist. Addendum entered by Marianna Emmanuel R.N. 09/25/19 12:55: Patient noted with sustained HR in 130s, normotensive, no chest pain dizziness. Made aware by Jose Luis MEHTA, notified Dr. Thrasher. PRN order obtained for rate control. Post administration: HR 83, BP 106/69 Original Note: Day shift note: Patient awake, and alert, having breakfast. Received call from Jose Luis MEHTA (ICU) regarding HR sustained in 130s and as high as 150. Patient normotensive, no dizziness or chest pain. Notified Dr. Thrasher, order obtain to admin Metoprolol 25 mg PO this am.
--- NOTE | 2019-09-25 10:16 | CM.DANOTE ---
Discharge Planning/Care Management DCP: assessment: Case received, EMR reviewed and met with pt before Team Rounds. Introduced self and role. Pt is an 79 year old female who admitted yesterday afternoon to care of hospitalist team. PCP: Dr. Hansel Hanna. Pt reports she saw his partner at the clinic, Dr. Osborne, who directed her to admit to go to the hospital after she worsened with the ER treatment ordered on 09/15. Payer: Medicare and [employer]. Pt has history of COPD and exposure to asbestos. Pt lives alone but describes a family and friend support group who have been calling already to check in on her. She has 2 sons, Bob and Harlan who live in and around the [facility]. Her sister Elinor Lin: [phone] lives in [facility] and she is the one who brought pt to the hospital. (pt warns her sister is very hard of hearing so phone call can be difficult) Pt's primary contact in [place] is her neighbor Baltazar Clarkejoey: [phone]. He will likely be the one who will pick her up at d/c. He also has the contact information for her family. Pt at this time is expecting to recover to point where she can return home. She may benefit from services...to be determined. Dr. Thrasher discussed POC in Rounds. She noted that pt was now getting steroids. Would anticipate that PT will be involved when medically ready for same as pt, who is at baseline independent, has been very limited in her mobility with the severe back pain. P: DCP team to follow as POC unfolds to assist with d/c issues and options as these become clearer. Advanced directive, confirm from FAMILY Start: 09/24/19 18:02 Freq: Q24H Status: Active Protocol: Document 09/24/19 19:17 SL (Rec: 09/24/19 19:17 SL [id number]) Advance Directive, confirm on record Time 19:17 Person contacted patient Copy received No CM Discharge Assessment Start: 09/25/19 10:13 Freq: Status: Active Protocol: Document 09/25/19 10:14 ITV (Rec: 09/25/19 10:16 ITV [id number]) Discharge Planning Assessment History Provided By Patient,Medical Record Has Patient been admitted in last 30 No days? Comment ER visit only on 09/15 Prior Living Arrangements Mobile home Household Members none Type of transporation used prior to Drives own vehicle admit Comment limited. her neighbor does shopping for her and often takes her to appointments. Independent with ADL's Yes Is patient alert and oriented? Yes DME Already Rented / Owned Cane Comment uses when going out of her home. Whiteboard Updated in Patient Room with Yes name and ext. # of Client Consultant Review Status In Process
--- NOTE | 2019-09-25 11:47 | DI.RAD.S_ITS ---
PROCEDURE: XR THORACIC SPINE 3V INDICATIONS: back pain TECHNIQUE: 3 views of the thoracic spine were acquired. COMPARISON: [facility], CT, CT CHEST W CON, 08/10/2018, 11:37. [facility], CT, CT ANGIO CHEST PE PROTOCOL, 09/24/2019, 16:37. FINDINGS: Bones: Numerous chronic compressions involving T6, T7, T8, T9, T10, and T11. A mild superior endplate compression fracture of T3 is likely acute or subacute. No suspicious bony lesions. 12 pairs of ribs are noted, and appear intact where visualized. Soft tissues: No paravertebral stripe thickening. IMPRESSION: 1. Mild T3 compression is likely acute or subacute. 2. Numerous chronic thoracic compressions. Other: Consider MRI to determine acuity of the T3 fracture. Dictated by: Tylor Segura M.D. on 09/25/2019 at 12:48 Approved by: Tylor Segura M.D. on 09/25/2019 at 12:53
[2019-09-25] MEDS: METOPROLOL TARTRATE 5 MG/5 ML INJ IV (12:41)
--- NOTE | 2019-09-25 14:32 | PM.PN.1 ---
Subjective Subjective Date Patient Seen: 09/25/19 Interval history: Patient is an 79-year-old female who was admitted to the hospital yesterday for an acute exacerbation of COPD. She continues to complain of severe thoracic back pain. She states her symptoms began 2 weeks ago. Pain appears to be intermittent. She does get some relief with Tylenol. Pain is 8/10 in intensity at its max and now about 6/10 in intensity. Patient continues to be short of breath. She has also been noted to be tachycardic. She was placed back on her usual metoprolol. Patient feels somewhat better but is not back to her baseline. Exam Vital Signs (past 8 hours): - 09/25/19 07:54 09/25/19 08:56 09/25/19 09:00 Temperature 97.0 F L Pulse Rate 128 H 123 H Respiratory Rate 23 Blood Pressure 109/80 138/63 Pulse Oximetry 93 95 09/25/19 10:12 09/25/19 11:20 09/25/19 11:21 Temperature 98.2 F Pulse Rate 111 H 96 H 110 H Respiratory Rate 19 20 Blood Pressure 106/57 L 116/58 L Pulse Oximetry 95 94 09/25/19 12:53 09/25/19 13:01 Temperature Pulse Rate 80 Respiratory Rate Blood Pressure 109/68 Pulse Oximetry 93 91 Oxygen Delivery Method Room Air Oxygen Flow Rate 0 Narrative Exam Narrative: Pleasant elderly female lying in bed in no obvious distress Lungs: Decreased breath sounds, bilaterally, with occasional end-expiratory wheezing Cardiac exam: Regular rate and rhythm normal S1-S2 Back: Palpation of her thoracic spine is nontender, no lesions noted Abdomen: Soft nontender nondistended Extremities: No edema Objective Labs Result Diagrams: 09/24/19 10:47 09/24/19 10:47 Labs: Laboratory Results - last 24 hr 09/24/19 10:47 Procalcitonin < 0.05 Assessment & Plan Assessment & Plan narrative: 1. COPD exacerbation -patient to continue on IV steroid -she will continue on antibiotics for her productive sputum -continue nebulizer treat 2. Thoracic compression fracture -x-rays at the thorax revealed multiple thoracic spine compression fracture -will treat symptomatically with Tylenol -will ask PT for a TLSO brace 3. Hypertension -continue metoprolol 4. GERD -continue PPI Patient to be discharged home once her breathing has improved and back pain is controlled COVID-19 COVID-19 status: Negative Result date/Date tested (Pos, Neg/Pending): 09/24/19 Quality VTE Deep Vein Thrombosis/Pulmonary Embolism Present on Admission: No
--- NOTE | 2019-09-25 14:53 | PC.NURSE ---
Patient in bed resting with HOB elevated. Denies any SOB, chest pain. Pt reported back pain but refused to take any pain meds. She states she would like to hold off any pain meds at this time d/t her pain is tolerable. HR 82-90's. BP 106/69 O2 sats 90-95% in RA. Xray of Tspine came back with mild T3 compressions Dr. Thrasher recommend PT for a TLSO brace and continue tylenol for pain.
[2019-09-25] MEDS: TRAMADOL 50 MG TABLET PO (18:56)
[2019-09-25] MEDS: HYDROCODONE/ACET 10/325 TABLET 1 TAB PO (18:57)
[2019-09-25] MEDS: ZOLPIDEM 5 MG TABLET PO (20:02)
[2019-09-26] VITALS (16 sets, daily range): BP systolic 105–137; BP diastolic 67–97; PULSE 91–126; RESP 17–24; TEMP 36.5–36.8; O2SAT 89–96
--- NOTE | 2019-09-26 00:11 | PC.NURSE ---
Addendum entered by Jami Self R.N. 09/26/19 06:51: Noted weight to be up 3.7kg this morning. No edema but did have the crackles in her lungs and O2 sats have been 91-92%. Leoncio OVIEDO, informed of apparent weight gain. Addendum entered by Jami Self R.N. 09/26/19 06:49: States pain has improved but still hurting. Requested/medicated with Tylenol. Addendum entered by Jami Self R.N. 09/26/19 06:07: States pain is currently 7/10 so medicated with Tramadol. Original Note: Patient is alert and oriented. Breath sounds diminished with late expiratory wheezing throughout and fine inspiratory crackles in right middle lobes and bilateral bases. Still SOB with any exertion but states it has improved. Denies sputum production. RA sat 91%. HR irregular although 2000 telemetry reading was SR (0000 reading has not yet been reported). HR 100-120 at rest but increases into 120-130 range with activity. Has prn Metoprolol for sustained HR > 120. Denies nausea. BT present and abdomen is soft. Has chronic urinary frequency but denies dysuria, urgency or incontinence. Is able to move self in bed and assisted to BSC with SBA; steady on feet. States thoracic back pain is much improved tonight and rates severity as only 3/10. Fall risk score is moderate and bed alarm is activated. Remains in contact isolation until final on sputum culture; currently growing only mixed reuben.
[2019-09-26] MEDS: TRAMADOL 50 MG TABLET PO ×2 (05:52→17:41)
[2019-09-26] MEDS: PANTOPRAZOLE 20 MG TABLET PO (05:53)
[2019-09-26] MEDS: ALBUTEROL/IPRATROPIUM 3 ML AMPUL INH ×3 (06:02→20:09)
[2019-09-26] MEDS: FLUTICASONE/SALMETEROL 500/50 60 PUFF DISKUS INH ×2 (06:02→20:09)
[2019-09-26] MEDS: ACETAMINOPHEN 325 MG TABLET 650 MG PO ×3 (06:48→21:36)
[2019-09-26] MEDS: FUROSEMIDE 20 MG TABLET PO (09:08)
[2019-09-26] MEDS: METOPROLOL ER 25 MG TABLET PO (09:08)
[2019-09-26] MEDS: MAGNESIUM OXIDE 400 MG TABLET PO (09:08)
[2019-09-26] MEDS: ENOXAPARIN 40 MG/0.4 ML SYRINGE SUBCUT (09:08)
[2019-09-26] MEDS: SODIUM CHLORIDE 0.9% FLUSH 10 ML IV ×3 (09:10→21:37)
[2019-09-26] MEDS: AMOXICILLIN/CLAV 875/125 MG 1 TAB PO ×2 (09:10→21:36)
[2019-09-26] MEDS: methylPREDNISolone 125 MG/2 ML VIAL 60 MG IV ×2 (09:10→18:55)
--- NOTE | 2019-09-26 10:27 | PM.PN.1 ---
Subjective Subjective Date Patient Seen: 09/26/19 Interval history: Patient reports continued mid back pain, she also reports continued shortness of breath. Today she was noted to be hypoxic with a room air sat of 89%. Her x-ray of the thoracic spine yesterday showed an acute compression fracture involving the T3 thoracic spine. Patient has multiple chronic compression fractures of her thorax. Exam Vital Signs (past 8 hours): - 09/26/19 03:20 09/26/19 06:03 09/26/19 08:00 Temperature 97.8 F 98.0 F Pulse Rate 108 H 104 H 95 H Respiratory Rate 18 24 19 Blood Pressure 137/73 132/70 Pulse Oximetry 92 93 91 09/26/19 09:00 09/26/19 09:08 Temperature Pulse Rate 98 H Respiratory Rate Blood Pressure 108/67 Pulse Oximetry 93 Oxygen Delivery Method Room Air Oxygen Flow Rate 0 Narrative Exam Narrative: Elderly female lying in bed in no obvious distress Lungs: Decreased breath sounds bilaterally Cardiac exam: Regular rate and rhythm normal S1-S2 Abdominal exam: Soft nontender nondistended Extremities: No edema Objective Labs Result Diagrams: 09/24/19 10:47 09/24/19 10:47 Assessment & Plan Assessment & Plan narrative: Impression 1. Acute hypoxic respiratory failure -patient continues to be short of breath despite steroids and nebulizer treatment -patient noted to be hypoxic with a room air sat of 89%, quickly improved to 90 to 91% -will continue IV steroids, nebulizer, and add inhaled steroid in addition to her antibiotics -patient will be stable for discharge once her breathing has improved -hypoxic respiratory failure secondary to acute COPD exacerbation with probable superimposed bronchitis 2. Osteoporosis with an acute T3 compression fracture -will discuss with Orthopedics the use of a TLSO brace -Ultram for pain control -continue Tylenol for pain -continue Fosamax, calcium and vitamin-D 3. GERD continue proton pump inhibitor Quality VTE Deep Vein Thrombosis/Pulmonary Embolism Present on Admission: No
--- NOTE | 2019-09-26 11:20 | CM.DPC ---
DCP/continued: Reviewed chart and discussed patient with provider in AM rounds. PT evaluation now pending. In addition, it is anticipated that patient will need TLSO brace. Dr. Thrasher reports that she will call Dr. Matson about obtaining one. P: CM team to follow closely for needs. Awaiting recommendations from Orthopedics and therapy. IVON Green
[2019-09-26] MEDS: BENZOCAINE/MENTHOL 1 LOZ PKT 1 EACH PO (17:41)
--- NOTE | 2019-09-26 17:41 | PC.NURSE ---
Assumed care of pt at 1500. Pt resting in bed during bedside hand-off. A/O. Reports back pain. Medicated per mar. Awaiting ortho consult and back brace to arrive. Pt using BSC to void. Steady on feet 1 pa. Requests Cepacol lozenges for sore throat r/t cough. notified. Pt reports neb treatments effective. CPOX, sats 88-93% RA. Denies SOB at rest. Calling appropriately for needs. Bed alarm on for safety.
--- NOTE | 2019-09-26 18:26 | PM.CN ---
History of Present Illness Consult details Date Patient Seen: 09/26/19 Time Patient Seen: 18:57 Chief complaint: Sent over from [facility], Hard time breathing Reason for consult: T3 compression fracture Requesting provider: Mariah Thrasher Narrative: 79-year-old female who was admitted 2 days ago for an acute COPD exacerbation. Her cough has been getting much worse over the past few weeks and she has had great difficulty clearing her phlegm. She had a severe coughing fit about 2 weeks ago and has had midthoracic back pain since. She has been taking Tylenol for it but has been hurting any time she gets up and moves around for coughs. The pain is at her bra line. It is manageable at about 3/10 now that she is taking Ultram. Without it, her pain level was about 7/10. Denies any pain numbness or weakness running down the legs. She has a history of multiple thoracic compression fractures in the past. Meds Home Medications and Allergies Home Medications Medication Instructions Recorded Confirmed Type albuterol sulfate [ProAir HFA] 1 puff INHALATION DIRECTED 09/25/17 09/24/19 History alendronate 1 tab PO QWEEK 09/25/17 09/24/19 History omeprazole 20 mg PO DAILY 09/25/17 09/24/19 History azithromycin See Rx Instructions .ROUTE 09/16/19 09/24/19 Rx .COMPLEX #6 tab ipratropium-albuterol 3 ml INHALATION Q4H PRN #15 ml 09/16/19 09/24/19 Rx prednisone 40 mg PO DAILY #10 tab 09/16/19 09/24/19 Rx Allergies Allergy/AdvReac Type Severity Reaction Status Date / Time No Known Drug Allergies Allergy Verified 09/24/19 10:40 Review of Systems Constitutional Constitutional: Denies chills and Denies fever(s) ENT Ears, Nose, Mouth, and Throat: No dizziness Cardiovascular Cardiovascular: Denies chest pain and Reports shortness of breath with activity Respiratory Respiratory: Reports change in phlegm color, Reports chest congestion, Reports cough, Reports pain with cough, Reports dyspnea on exertion and Reports wheezing Gastrointestinal Gastrointestinal: Denies abdominal pain Integumentary/Breasts Skin/Breast: Denies wounds Neurologic Neurologic: Denies confusion and Denies dizziness Psychiatric Psychiatric: Denies confusion Endocrine Endocrine: Denies change in body appearance Hematologic/Lymphatic Hematologic/Lymphatic: Denies easy bleeding Allergic/Immunologic Allergic/Immunologic: Reports wheezing Exam Vital Signs (past 8 hours): - 09/26/19 11:37 09/26/19 12:16 09/26/19 12:28 Temperature 98.3 F Pulse Rate 91 H 126 H 106 H Respiratory Rate 20 24 Blood Pressure 125/70 125/70 Pulse Oximetry 90 L 89 L 09/26/19 13:00 09/26/19 15:35 09/26/19 15:43 Temperature 97.8 F Pulse Rate 97 H Respiratory Rate 17 Blood Pressure 136/97 H Pulse Oximetry 92 90 L 09/26/19 16:00 09/26/19 17:59 Temperature Pulse Rate 103 H Respiratory Rate 24 Blood Pressure Pulse Oximetry 90 L 96 Oxygen Delivery Method Room Air Oxygen Flow Rate 0 Const Orientation: alert and oriented x3 Resp Effort & Inspection: decreased respiratory effort Auscultation: wheezes Cardio Rate: regular rate Rhythm: regular rhythm Back/Spine/Pelvis Other: Nontender in the upper thoracic spine. Tender around T6-8 in the midline. Nontender paraspinals. Nontender lumbar spine. 5/5 motor 2+ reflexes negative straight leg raising intact sensation both lower extremities. 1+ distal pulses both lower extremities. Objective Imaging CT scan of the chest : My impression: Shows compression fractures of T3 T6-T7-T8-T9 T10 and T11. Increased sclerotic density through all of these bones. Severe degenerative changes in the midthoracic spine with collapse the disc and osteophytes as well. The only comparison we have is a CT scan of the chest from 08/10/2018. The T3 and T6 compression fractures are new since the scan from over 1 year ago. Labs Result Diagrams: 09/24/19 10:47 09/24/19 10:47 Assessment & Plan Assessment & Plan narrative: T3 and T6 compression fractures new since scan from 1 year ago. 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 She is not having any pain around the T3 region which makes me think this may be more of a chronic fracture as well. However, most of her pain now is around the T6 level where there is a new fracture compared to a year ago. I explained to her that most people with compression fractures have fairly severe pain for about 2 weeks then tend to see good improvement over the course of the next month. As her pain is quite manageable with Ultram at this point, I would just recommend conservative management. I reassured her that this should get much better over the course of the next week, as she has already been dealing with this for 2 weeks. If however, her pain does not get better or worsens, we could always consider a kyphoplasty at the T6 level. I do not think the T3 level is an acute fracture, nor is this level safely approachable for kyphoplasty due to greatly decreased visualization intraoperatively anywhere above T4. We also discussed the possibility of bracing, but most overly patients do not tolerate the brace and want up never wearing it. It is no longer recommended as standard treatment. I also think with her cough, anything constricting under chest would be difficult. At this point, continue pain medication. Discharge home when medically stable from her COPD exacerbation. She can follow up in my office in 1 week for recheck.
[2019-09-26] MEDS: ZOLPIDEM 5 MG TABLET PO (21:36)
[2019-09-27] VITALS (13 sets, daily range): BP systolic 103–135; BP diastolic 70–81; PULSE 87–124; RESP 16–20; TEMP 36.7–37; O2SAT 90–94
[2019-09-27] MEDS: SODIUM CHLORIDE 0.9% FLUSH 10 ML IV ×3 (02:28→17:30)
[2019-09-27] MEDS: methylPREDNISolone 125 MG/2 ML VIAL 60 MG IV ×3 (02:29→18:09)
[2019-09-27] MEDS: PANTOPRAZOLE 20 MG TABLET PO (05:20)
[2019-09-27] MEDS: ALBUTEROL/IPRATROPIUM 3 ML AMPUL INH ×3 (07:16→20:51)
[2019-09-27] MEDS: FLUTICASONE/SALMETEROL 500/50 60 PUFF DISKUS INH ×2 (07:16→21:00)
[2019-09-27] MEDS: MAGNESIUM OXIDE 400 MG TABLET PO (08:10)
[2019-09-27] MEDS: ENOXAPARIN 40 MG/0.4 ML SYRINGE SUBCUT (08:11)
[2019-09-27] MEDS: TRAMADOL 50 MG TABLET PO (08:11)
[2019-09-27] MEDS: METOPROLOL ER 25 MG TABLET PO (08:11)
[2019-09-27] MEDS: FUROSEMIDE 20 MG TABLET PO (08:11)
[2019-09-27] MEDS: AMOXICILLIN/CLAV 875/125 MG 1 TAB PO ×2 (08:12→20:31)
[2019-09-27] MEDS: METOPROLOL TARTRATE 5 MG/5 ML INJ IV (08:33)
[2019-09-27 11:26] LABS: Adenovirus Not Detected (Not Detect); Bordetella pertussis Not Detected (Not Detect); Chlamydophila pneumoniae Not Detected (Not Detect); Coronavirus 229E Not Detected (Not Detect); Coronavirus HKU1 Not Detected (Not Detect); Coronavirus NL 63 Not Detected (Not Detect); Coronavirus OC43 Not Detected (Not Detect); Human Metapneumovirus Not Detected (Not Detect); Human Rhinovirus/Enterovirus Not Detected (Not Detect); Influenza A Not Detected (Not Detect); Influenza B Not Detected (Not Detect); Mycoplasma pneumoniae Not Detected (Not Detect); Parainfluenza Virus 1 Not Detected (Not Detect); Parainfluenza Virus 2 Not Detected (Not Detect); Parainfluenza Virus 3 Not Detected (Not Detect); Parainfluenza Virus 4 Not Detected (Not Detect); Respiratory Syncytial Virus Not Detected (Not Detect)
--- NOTE | 2019-09-27 17:40 | PM.PN.1 ---
Subjective Subjective Date Patient Seen: 09/27/19 Interval history: Patient reports back pain has improved, she continues to be short of breath Exam Vital Signs (past 8 hours): - 09/27/19 09:55 09/27/19 12:54 09/27/19 13:55 Temperature 98.6 F Pulse Rate 124 H 114 H Respiratory Rate 17 Blood Pressure 135/75 Pulse Oximetry 91 90 L 09/27/19 16:00 09/27/19 16:23 09/27/19 17:21 Temperature 98.2 F Pulse Rate 87 105 H Respiratory Rate 20 20 Blood Pressure 125/71 Pulse Oximetry 92 93 92 Oxygen Delivery Method Room Air Oxygen Flow Rate 0 Narrative Exam Narrative: pleasant female in no acute distress Lungs: decreased breath sounds with end expiratory wheezing Cardiac exam: Tachycardic regular rate and rhythm normal S1-S2 Abdomen: Soft nontender nondistended Extremities: No edema Objective Labs Result Diagrams: 09/24/19 10:47 09/24/19 10:47 Labs: Laboratory Results - last 24 hr 09/27/19 09:45 Chlamy pneumoniae PCR Not detected Adenovirus (PCR) Not detected B.parapertussis DNA PCR Not detected Coronavirus OC43 (PCR) Not detected Coronavirus HKU1 (PCR) Not detected Coronavirus 229E (PCR) Not detected Coronavirus NL63 (PCR) Not detected Human Metapneumovir PCR Not detected Influenza Type A (PCR) Not detected Influenza Type B (PCR) Not detected M. pneumoniae (PCR) Not detected Parainfluenza 1 (PCR) Not detected Parainfluenza 2 (PCR) Not detected Parainfluenza 3 (PCR) Not detected Parainfluenza 4 (PCR) Not detected RSV (PCR) Not detected Entero/Rhino (PCR) Not detected Assessment & Plan Assessment & Plan narrative: Impression 1. COPD exacerbation -continue steroid, ox, nebulizer -will add Mucinex and Pulmicort -will check rest and exercise O2 sat, patient may require oxygen with activity 2. T6 compression fracture -TLSO brace not indicate -continue current pain manage 3. Osteoporosis -will treat symptomatic -continue allergic Khris and calcium and vitamin-D 4. GERD -continue PPI Quality VTE Deep Vein Thrombosis/Pulmonary Embolism Present on Admission: No
[2019-09-27] MEDS: ACETAMINOPHEN 325 MG TABLET 650 MG PO (19:29)
[2019-09-27] MEDS: guaiFENesin ER 600 MG TAB PO (20:31)
[2019-09-27] MEDS: BENZOCAINE/MENTHOL 1 LOZ PKT 1 EACH PO (20:32)
[2019-09-27] MEDS: BUDESONIDE 0.5 MG/2 ML NEB INH (20:51)
[2019-09-27] MEDS: methocarbamoL 500 MG TABLET PO (21:41)
[2019-09-27] MEDS: ZOLPIDEM 5 MG TABLET PO (21:41)
--- NOTE | 2019-09-27 22:03 | PC.NURSE ---
EVENING SHIFT. pt AO and receptive to care. O2 92% and on room air all shift. Reporting that she feels like she is getting enough oxygen. Lungs clear and diminished. Tele reading Tachy with frequent PVC's, HR in 110's but pt states 90-100's is her baseline. Compression fracture to lower back causing chronic pain managed with tylenol and methocarbamol. Right wrist PIV flushing. ISO for FLU rule out. Tolerating regular diet and able to use phone to place order. Calling appropriately and making needs known.
[2019-09-28 00:07] VITALS: BP 117/84; PULSE 103; RESP 16; TEMP 36.3; O2SAT 93
[2019-09-28] MEDS: methylPREDNISolone 125 MG/2 ML VIAL 60 MG IV ×2 (03:19→11:30)
--- NOTE | 2019-09-28 04:49 | PC.NURSE ---
Organ Pipe Voicer Note: 0045: Resting in bed. Vital signs stable. IV in place in rt wrist. Remains on room air. Remains on telemetry.
[2019-09-28 05:07] VITALS: BP 126/76; PULSE 99; RESP 16; TEMP 36.6; O2SAT 93
[2019-09-28] MEDS: PANTOPRAZOLE 20 MG TABLET PO (06:30)
[2019-09-28] MEDS: ALBUTEROL/IPRATROPIUM 3 ML AMPUL INH (07:20)
[2019-09-28] MEDS: BUDESONIDE 0.5 MG/2 ML NEB INH (07:21)
[2019-09-28] MEDS: FLUTICASONE/SALMETEROL 500/50 60 PUFF DISKUS INH (07:22)
[2019-09-28 07:39] VITALS: PULSE 104; RESP 24; O2SAT 93
[2019-09-28 08:00] VITALS: BP 123/81; PULSE 107; RESP 20; TEMP 36.4; O2SAT 92
[2019-09-28] MEDS: AMOXICILLIN/CLAV 875/125 MG 1 TAB PO (08:28)
[2019-09-28] MEDS: guaiFENesin ER 600 MG TAB PO (08:28)
[2019-09-28] MEDS: MAGNESIUM OXIDE 400 MG TABLET PO (08:28)
[2019-09-28] MEDS: ENOXAPARIN 40 MG/0.4 ML SYRINGE SUBCUT (08:28)
[2019-09-28] MEDS: ACETAMINOPHEN 325 MG TABLET 650 MG PO (08:28)
[2019-09-28] MEDS: TRAMADOL 50 MG TABLET PO (08:29)
[2019-09-28] MEDS: METOPROLOL ER 25 MG TABLET PO (08:30)
[2019-09-28] MEDS: FUROSEMIDE 20 MG TABLET PO (08:30)
[2019-09-28] MEDS: SODIUM CHLORIDE 0.9% FLUSH 10 ML IV (08:31)
--- NOTE | 2019-09-28 08:37 | PM.DS.1 ---
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 Patient states she has struggled with her breathing for the past few weeks. She has cough productive of yellow phlegm which is typical for her. She denies hemoptysis. She was evaluated in the ER on September 15 and discharged on prednisone and Zithromax. She has not noticed improvement since then. She gets extremely out of breath just walking a few steps. She also reports persistent worsening pain across her thoracic back. The pain is worse with cough and taking deep breaths. In the ER noted to be tachycardic, tachypneic with O2 sats of 93% on room air. Chest x-ray showed chronic interstitial changes. She has WBC of 17 having taken prednisone recently with a normal procalcitonin less than 0.05. Her troponin and BMP were normal. Her D-dimer was normal for age at 322. Patient was given nebulizer and IV Solu-Medrol treatments in the ED without improvement and deemed appropriate for admission. Discharge Providers Provider Date of admission: 09/24/19 13:42 Discharge Date: 09/28/19 Primary care physician: Hansel Hanna MD Consults: 09/24/19 16:37 Consult to Respiratory Therapy Evaluate & Treat Comment: Physician Instructions: Evaluate and treat 09/26/19 10:33 Consult to Orthopedic Surgery Routine Comment: Consulting Provider: Reid Matson Reason for consultation: T-3 compression fractures Discharge provider: Mariah hTrasher MD Summary Hospital Course Discharge Diagnosis: 1. Acute hypoxic respiratory failure 2. T6 compression fracture 3. Osteoporosis 4. COPD 5.. GERD 6. Supraventricular tachycardia Hospital Course: Patient was admitted to the hospital for acute shortness of breath and COPD exacerbation. The patient initially was able to maintain her O2 sat on room air. However over time she became progressively short of breath and had a documented O2 sat of 89% on room air. She recovered quite quickly with nebulizers oxygen and steroids. She will be evaluated by respiratory therapy to determine if oxygen is needed with activity. Patient also complained of back pain. She underwent a CT angio which was negative for PE. She had x-rays of her thoracic spine which confirmed multiple chronic compression fractures. There was also an acute T6 compression fracture. The patient was seen in consultation by Dr. ocampo. He recommended symptomatic treatment. He also recommended that if her pain persists she may be eligible for kyphoplasty. The patient continued to improve in terms of her shortness of breath. Her pain was somewhat controlled with Ultram and Tylenol. She was deemed appropriate for discharge and arrangements were made for her to be discharged home. Status at Discharge Cognitive/behavioral status at discharge: oriented Functional status at discharge: independent ambulation Overall status at discharge: patient is not back to baseline Time Spent with Patient Time spent: Less than 30 minutes Exam Vital Signs (past 8 hours): - 09/28/19 05:07 09/28/19 07:39 09/28/19 08:00 Temperature 97.8 F 97.6 F Pulse Rate 99 H 104 H 107 H Respiratory Rate 16 24 20 Blood Pressure 126/76 123/81 Pulse Oximetry 93 93 92 Oxygen Delivery Method Room Air Oxygen Flow Rate 0 Narrative Exam Narrative: Pleasant elderly female in no obvious distress Lungs: Decreased breath sounds with prolonged end-expiratory phase Cardiac exam: Tachycardic regular rate and rhythm normal S1-S2 Abdomen: Soft nontender nondistended Extremities: No edema Objective Labs Result Diagrams: 09/24/19 10:47 09/24/19 10:47 Labs: Laboratory Results - last 24 hr 09/27/19 09:45 Chlamy pneumoniae PCR Not detected Adenovirus (PCR) Not detected B.parapertussis DNA PCR Not detected Coronavirus OC43 (PCR) Not detected Coronavirus HKU1 (PCR) Not detected Coronavirus 229E (PCR) Not detected Coronavirus NL63 (PCR) Not detected Human Metapneumovir PCR Not detected Influenza Type A (PCR) Not detected Influenza Type B (PCR) Not detected M. pneumoniae (PCR) Not detected Parainfluenza 1 (PCR) Not detected Parainfluenza 2 (PCR) Not detected Parainfluenza 3 (PCR) Not detected Parainfluenza 4 (PCR) Not detected RSV (PCR) Not detected Entero/Rhino (PCR) Not detected Discharge Plan Discharge Plan Patient Disposition: Home Discharge comment: Follow up with PCP next week. Discharge orders & Medications Prescriptions: New tramadol 50 mg Tablet 50 mg PO QID PRN (Reason: Pain, Moderate (4-6)) Qty: 20 RF: 0 metoprolol succinate 25 mg Tablet Extended Release 24 Hr 25 mg PO DAILY Qty: 30 RF: 0 Cepacol Sore Throat (dale-men) 15-3.6 mg Lozenge 1 ea PO Q1HR PRN (Reason: Sore Throat) 5 Days RF: 0 guaifenesin [Mucus Relief ER] 600 mg Tablet Extended Release 12hr 600 mg PO BID Qty: 30 RF: 0 prednisone 20 mg tablet 40 mg PO DAILY 5 Days Qty: 5 RF: 0 amoxicillin-pot clavulanate [Augmentin] 875-125 mg Tablet 1 tab PO BID 3 Days Qty: 6 RF: 0 fluticasone propion-salmeterol 500-50 mcg/dose Blister With Device 1 puff INH BID Qty: 30 RF: 0 amoxicillin-pot clavulanate 875-125 mg tablet 1 tab PO BID 3 Days Qty: 6 RF: 0 Continued alendronate 70 mg tablet 1 tab PO QWEEK RF: 0 albuterol sulfate [ProAir HFA] 90 mcg/actuation HFA aerosol inhaler 1 puff Inhalation DIRECTED RF: 0 omeprazole 20 mg Capsule,Delayed Release(Dr/Ec) 20 mg PO DAILY RF: 0 ipratropium-albuterol 0.5 mg-3 mg(2.5 mg base)/3 mL solution for nebulization 3 ml INHALATION Q4H PRN (Reason: shortness of breath or wheezing) Qty: 15 RF: 0 Discontinued prednisone 20 mg tablet 40 mg PO DAILY Qty: 10 RF: 0 azithromycin 250 mg tablet See Rx Instructions .ROUTE .COMPLEX Qty: 6 RF: 0 Follow up/Referrals: Hansel Hanna MD [Primary Care Provider] - Diet/Activity/Treatments Diet: Low-sodium and Low-cholesterol Activity: as tolerated Discharge Data Primary Care Provider: Hansel Hanna Quality VTE Deep Vein Thrombosis/Pulmonary Embolism Present on Admission: No
--- NOTE | 2019-09-28 10:19 | PC.NURSE ---
Addendum entered by Damien Foster R.N. 09/28/19 12:02: PATIENT DISCHARGED W/ ALL BELONGINGS AND PAPERWORK. ESCORTED TO VEHICLE FOR RIDE HOME WITH HER SISTER. PATIENT EAGER TO BE GOING HOME. Addendum entered by Damien Foster R.N. 09/28/19 11:30: PATIENT ADMITS TO MILD SOB AT REST, STATES BUT I ALWAYS DO LATELY STATES SHE FEELS CLOSE TO HER BASELINE. DOES NOT APPEAR DISTRESSED AT THIS TIME. Addendum entered by Damien Foster R.N. 09/28/19 11:20: DR. KWON NOTIFIED BY [facility] IN RT, OF SATS STABLE AT REST AND AFTER ACTIVITY AT 93% ON RA BUT WITH CONTINUED SOB AT REST AND EXACERBATED BY ACTIVITY. DR KWON REPLIES THAT PATIENT WILL LIKELY TAKE SEVERAL DAYS TO CONTINUE IMPROVING, AND ELECTED TO ADD HOME HEALTH FOR CLOSE MONITORING AT HOME. SHE STATES SHE WILL ALSO ORDER CARDIOPULMONARY REHAB. TEACHING PROVIDED ON PURSED LIP BREATHING, AND SEVERAL HANDOUTS ON COPD WHICH PATIENT READ ENTIRELY. SHE CONFIRMS IMPORTANCE OF CALLING 911 FOR WORSENING SYMPTOMS OUTLINED IN THE HANDOUTS PROVIDED. Original Note: PATIENT DYSPNIC WITH ACTIVITY. SHOWERED W/ ASSIST ON RA. AFTER SHOWER SAT 93% ON RA. RT IN TO ASSESS PATIENT. WOULDN'T QUALIFY FOR HOME O2. PATIENT WOULD REALLY LIKE TO GO HOME. PAIN IMPROVED FROM 7/10 YO 4/10 AFTER TRAMDOL W/ TYLENOL.
--- NOTE | 2019-09-28 11:22 | CM.DPC ---
DCP Discharge Home with HH Per MD, pt is medically stable to d/c home today after RT assessment and with HH due to her SOB and compression fx. SW met bedside with pt and explained role and pt confirmed that she is agreeable with d/c home today via family POV and is glad to get to go home today and her ride is driving up from [place]. SW discussed HH recommendation and discussed HH services and frequency and pt is agreeable and denies any hx of HH. SW provided the HH Choice List and pt has no preference so SW made new referral to [facility] based on the Vendor Calendar and called [facility] with new referral and faxed clinicals, F2F, and MD orders to [facility]. PAYAL provided pt with the [facility] brochure. Plan: Patient to d/c home today via family POV and new [facility] referral to follow pt after discharge. IVON Su
[2019-09-28 12:00] VITALS: O2SAT 93
== END 2019-09-28 12:03 | disposition home health service (06) | DRG 190 ==
LOC: ED 11:02 → AC 13:43
PROVIDERS: Emergency Medicine; Internal Medicine; Admitting Provider Internal Medicine; Emergency Provider Student in an Organized Health Care Education/Training Program; PCP Internal Medicine; Referring Provider Student in an Organized Health Care Education/Training Program; Visit Provider Internal Medicine
DX: J44.1 Chronic obstructive pulmonary disease with (acute) exacerbation (principal); J96.01 Acute respiratory failure with hypoxia; M80.88XA Other osteoporosis with current pathological fracture, vertebra(e), initial encounter for fracture; I47.1 Supraventricular tachycardia; I10 Essential (primary) hypertension; K21.9 Gastro-esophageal reflux disease without esophagitis; Z03.818 Encounter for observation for suspected exposure to other biological agents ruled out; Z87.891 Personal history of nicotine dependence
CPT/HCPCS: 36415; 36592; 71045; 71275; 72072; 80053; 81001; 83605; 83880; 84145; 84484; 85025; 85379; 87070; 87077; 87205; 87633; 87635; 93005; 93010; 94618; 94640; 94762; 96361; 96374; 99284; J1650; J2930

== ENCOUNTER → 2020-07-28 11:51 | Outpatient (CLI) | payer MEDICARE, SELFPAY ==
[2019-09-24 13:51] VITALS: BMI 25.9
--- NOTE | 2020-07-28 11:57 | DI.CT.S_ITS ---
PROCEDURE: CT CHEST HIGH RESOLUTION INDICATIONS: Other specified interstitial pulmonary diseases TECHNIQUE: Noncontrast 1.0 and 5.0 mm thick contiguous axial sections from the pulmonary apex to the posterior costophrenic angles, with 7 mm thick coronal and sagittal MIP reformats. 1 mm thick dynamic expiratory images acquired through the upper, mid, and lower lungs. 1.0 mm thick axial sections acquired from the mayelin to the posterior costophrenic angles in the prone end-inspiration position. For radiation dose reduction, the following was used: automated exposure control, adjustment of mA and/or kV according to patient size. COMPARISON: [facility], CT, CT ANGIO CHEST PE PROTOCOL, 09/24/2019, 16:37. FINDINGS: Image quality: Excellent. Lungs: The lungs demonstrate tree-in-bud opacities peripherally throughout both lung cornejo in the upper, mid, and lower lung cornejo. No focal consolidation or mass. No ground-glass opacities. The central airways are patent. Pleura: No pleural effusions or pneumothorax. Mediastinum: Heart size is normal. No pericardial effusion. Thoracic aorta and central pulmonary arteries are normal in size. Esophagus is normal in caliber. The coronary arteries have atherosclerotic calcifications. Bones and chest wall: No suspicious bony lesions. No vertebral body compression fractures. Abdomen: Visualized upper abdominal solid organs and bowel loops appear normal. IMPRESSION: 1. Diffuse bilateral tree-in-bud opacities consistent with atypical infectious processes with endobronchial spread such as mycoplasma, among others. 2. No evidence of fibrosis. Dictated by: Jonah Hyatt M.D. on 07/28/2020 at 12:38 Approved by: Jonah Hyatt M.D. on 07/28/2020 at 12:48
== END ==
PROVIDERS: PCP Internal Medicine; Referring Provider Internal Medicine Pulmonary Disease; Visit Provider Internal Medicine Pulmonary Disease
DX: J84.89 Other specified interstitial pulmonary diseases (principal)
CPT/HCPCS: 71250

== ENCOUNTER → 2020-09-15 11:38 | Outpatient (CLI) | payer MEDICARE, SELFPAY ==
[2019-09-24 13:51] VITALS: BMI 25.9
== END ==
PROVIDERS: PCP Internal Medicine; Referring Provider Internal Medicine Pulmonary Disease; Visit Provider Internal Medicine Pulmonary Disease
DX: R61 Generalized hyperhidrosis (principal); R91.8 Other nonspecific abnormal finding of lung field
CPT/HCPCS: 87116; 87206

== ENCOUNTER 2020-10-25 11:36 | Emergency (ER) | payer MEDICARE, SELFPAY ==
[2019-09-24 13:51] VITALS: BMI 25.9
[2020-10-25] VITALS (9 sets, daily range): BP systolic 127–148; BP diastolic 64–77; PULSE 71–94; RESP 17–27; TEMP 36.9; O2SAT 92–95
[2020-10-25 13:02] LABS: Bacteria Urine None Seen; RBC Urine None Seen (0-5/HPF); WBC Urine None Seen (0-5/HPF)
[2020-10-25 13:10] LABS: Amorphous Sediment Urine 2+; Culture Indicated Urine Cult Not Indicated; Squamous Epithelial Cell Urine 1-5 /HPF (0-5/HPF)
[2020-10-25 13:58] LABS: Add Manual Diff / Slide Review NO; Basophils Absolute Auto 100 /uL (0-100); Basophils Percent Auto 0.6 % (0-2); Eosinophils Absolute Auto 200 /uL (0-450); Hematocrit 38.4 % (36-46); Hemoglobin 12.6 g/dL (12.0-16.0); Lymphocytes Absolute Auto 700 /uL (1100-4500); Lymphocytes Percent Auto 6.3 % (25-40); Mean Corpuscular HGB Conc 32.8 % (30-36); Mean Corpuscular Hemoglobin 29.9 PG (26-34); Mean Corpuscular Volume 91.2 fL (80-100); Monocytes Absolute Auto 1000 /uL (0-900); Monocytes Percent Auto 8.9 % (3-14); Neutrophils Absolute Auto 9000 /uL (1500-7000); Neutrophils Percent Auto 82.2 % (50-75); Platelet Count 296 X10^3/uL (150-400); Red Blood Cell Count 4.22 X10^6/uL (4.0-5.2)
[2020-10-25 14:52] LABS: Alanine Aminotransferase 15 IU/L (<35); Albumin 4.1 g/dL (3.5-5.0); Albumin Globulin Ratio 1.3 (1.0-2.8); Alkaline Phosphatase 95 U/L (38-126); Aspartate Aminotransferase 25 IU/L (14-36); Bilirubin Total 0.3 mg/dL (0.2-1.3); Blood Urea Nitrogen 26 mg/dL (7-17); Calcium 9.3 mg/dL (8.4-10.2); Carbon Dioxide 26 mmol/L (22-32); Chloride 105 mmol/L (98-107); Estimated Glomerular Filt Rate > 60.0 mL/min (>60); Globulin 3.2 g/dL (1.7-4.1); Glucose 109 mg/dL (80-110); HEMOLYSIS 22 (0-50); Lipase 117 U/L (23-300); Potassium 4.9 mmol/L (3.4-5.1); Sodium 136 mmol/L (137-145); Total Protein 7.3 g/dL (6.3-8.2)
--- NOTE | 2020-10-25 15:36 | ED_ITS ---
HPI - Back Pain/Injury General Chief Complaint: Back Pain/Injury Stated Complaint: lower back pain for one week Time Seen by Provider: 10/25/20 14:51 Source: patient History of Present Illness HPI Narrative: Patient is an 80-year-old female with history of COPD presenting with lower abdominal pain and back pain ongoing for the last 3 days. She is having suprapubic pain she thought she had a UTI but denies any urinary frequency or urgency. She said she was walk-in clinic somewhere and had her urine checked and they said it was negative. She has no fever or chills. She is having normal bowel movements. She says she is also having bilateral lower lumbar pain. His with no radiation to her lower extremities. She is having more pain in her right leg but her right leg is worse off than her left she says. She is participating in respiratory rehab and doing exercise but she does not remember hurting herself or injuring herself. She has no flank pain. Related Data Home Medications Medication Instructions Recorded Confirmed albuterol sulfate 90 mcg/actuation 1 puff INHALATION DIRECTED 09/25/17 09/24/19 aerosol inhaler alendronate 70 mg tablet 1 tab PO QWEEK 09/25/17 09/24/19 omeprazole 20 mg capsule,delayed 20 mg PO DAILY 09/25/17 09/24/19 release Previous Rx's Medication Instructions Recorded ipratropium 0.5 mg-albuterol 3 mg 3 ml INHALATION Q4H PRN #15 ml 09/16/19 (2.5 mg base)/3 mL nebulization soln fluticasone 500 mcg-salmeterol 50 1 puff INH BID #30 ea 09/28/19 mcg/dose blistr powdr for inhalation guaifenesin 600 mg tablet, 600 mg PO BID #30 tab 09/28/19 extended release 12 hr (Mucus Relief ER) metoprolol succinate 25 mg 25 mg PO DAILY #30 tab 09/28/19 tablet,extended release 24 hr tramadol 50 mg tablet 50 mg PO QID PRN #20 tab 09/28/19 Allergies Allergy/AdvReac Type Severity Reaction Status Date / Time No Known Drug Allergies Allergy Verified 10/25/20 12:05 Review of Systems Review of Systems Narrative: GENERAL: Denies chills, fatigue, malaise, fever, sweats, travel HEENT: Denies sinus pain, ear pain, sore throat, difficulty swallowing, neck pain RESPIRATORY: Denies dyspnea, cough, wheezing, hemoptysis, sputum. CARDIOVASCULAR: Denies chest pain, palpitations, orthopnea, edema GASTROINTESTINAL: See HPI : Denies dysuria, frequency, incontinence, hematuria, urinary retention, flank pain. MUSCULOSKELETAL: Denies weakness, joint pain, or bony pain SKIN: No rash, no erythema, no pruritus NEUROLOGIC: Denies weakness, dizziness, headache, numbness, change in speech, confusion PSYCHIATRIC: No concerning psychosocial issues. 12 point review of systems is negative except for those stated above and HPI Patient History Medical History (Updated 10/25/20 @ 17:26 by Araceli Medina DO) COPD (chronic obstructive pulmonary disease) Femur fracture, right Tibia fracture Social History household members: none Smoking Status: Former smoker Smoking Status: Former smoker alcohol intake frequency: holidays/special occasions only Substance Use Type: does not use Exam Initial Vital Signs Initial Vital Signs: Vital Signs Temperature 98.5 F 10/25/20 12:02 Pulse Rate 94 H 10/25/20 12:02 Respiratory Rate 17 10/25/20 12:02 Blood Pressure 148/77 H 10/25/20 12:02 Pulse Oximetry 92 10/25/20 12:02 GENERAL: Alert pleasant well-appearing 80-year-old female HEENT: Head atraumatic,EOMI, pupils reactive, face symmetric, moist mucous membranes CARDIOVASCULAR: Regular rate and rhythm without murmurs, rubs or gallops. RESPIRATORY: Breath sounds equal bilaterally, no wheezes rales or rhonchi. ABDOMEN: Soft, nontender. Normoactive bowel sounds all 4 quadrants. No guarding or rebound. BACK: No vertebral tenderness : No CVA tenderness EXTREMITIES: Normal range of motion, no clubbing or edema. Neurovascularly intact NEUROLOGICAL: Alert and oriented x4.Normal gait and speech. SKIN: Warm, dry, no laceration, no petechiae, no rashes or lesions. Course Orders Ordered: ED Orders 10/25/20 12:35 Urine Microscopic Stat 10/25/20 13:50 Complete Blood Count AUTO DIFF Stat 10/25/20 14:30 Comprehensive Metabolic Panel Stat Lipase Stat Trop I [Troponin I] Stat 10/25/20 14:38 EKG-12 Lead Stat 10/25/20 16:21 CT abdomen pelvis w con Stat Discontinued Medications Ketorolac Tromethamine (Ketorolac 30 Mg/Ml Vial) 15 mg IV NOW ONE Stop: 10/25/20 16:22 Last Admin: 10/25/20 16:34 Dose: 15 mg Documented by: MAGO Vital Signs Vital signs: Vital Signs - 8 hr 10/25/20 12:02 10/25/20 14:58 10/25/20 14:59 Temperature 98.5 F Pulse Rate 94 H 73 71 Respiratory Rate 17 20 Blood Pressure 148/77 H Pulse Oximetry 92 94 95 10/25/20 15:00 10/25/20 15:30 10/25/20 16:00 Temperature Pulse Rate 72 72 77 Respiratory Rate 20 20 27 H Blood Pressure 127/68 134/64 137/67 Pulse Oximetry 95 94 95 10/25/20 16:30 10/25/20 17:16 10/25/20 17:17 Temperature Pulse Rate 75 71 71 Respiratory Rate 19 Blood Pressure 140/65 143/67 H Pulse Oximetry 93 93 93 MDM - Back Pain/Injury Lab Data Result diagrams: 10/25/20 13:50 10/25/20 14:30 Labs: Lab Results 10/25/20 10/25/20 10/25/20 Range/Units 12:35 13:50 14:30 WBC 11.0 (4.5-11.0) X10^3/uL RBC 4.22 (4.0-5.2) X10^6/uL Hgb 12.6 (12.0-16.0) g/dL Hct 38.4 (36-46) % MCV 91.2 (80-100) fL MCH 29.9 (26-34) PG MCHC 32.8 (30-36) % RDW 13.0 (11.6-14.8) % Plt Count 296 (150-400) X10^3/uL Neut % (Auto) 82.2 H (50-75) % Lymph % (Auto) 6.3 L (25-40) % [place] % (Auto) 8.9 (3-14) % Eos % (Auto) 2.0 (2-4) % Baso % (Auto) 0.6 (0-2) % Neut # (Auto) 9000 H (4423-1507) /uL Lymph # (Auto) 700 L (0282-5058) /uL [place] # (Auto) 1000 H (0-900) /uL Eos # (Auto) 200 (0-450) /uL Baso # (Auto) 100 (0-100) /uL Sodium 136 L (137-145) mmol/L Potassium 4.9 (3.4-5.1) mmol/L Chloride 105 (98-107) mmol/L Carbon Dioxide 26 (22-32) mmol/L BUN 26 H (7-17) mg/dL Creatinine 0.65 (0.52-1.04) mg/dL Estimated GFR > 60.0 (>60) mL/min BUN/Creatinine Ratio 40.0 H (6-22) Glucose 109 (80-110) mg/dL Calcium 9.3 (8.4-10.2) mg/dL Total Bilirubin 0.3 (0.2-1.3) mg/dL AST 25 (14-36) IU/L ALT 15 (<35) IU/L Alkaline Phosphatase 95 (38-126) U/L Troponin I (0.01-0.034) ng/mL Total Protein 7.3 (6.3-8.2) g/dL Albumin 4.1 (3.5-5.0) g/dL Globulin 3.2 (1.7-4.1) g/dL Albumin/Globulin Ratio 1.3 (1.0-2.8) Lipase 117 (23-300) U/L Urine RBC None seen (0-5/HPF) Urine WBC None seen (0-5/HPF) Ur Squamous Epith Cells 1-5 /hpf (0-5/HPF) Amorphous Sediment 2+ Urine Bacteria None seen (None) Ur Culture Indicated? Cult not indicated 10/25/20 Range/Units 14:30 WBC (4.5-11.0) X10^3/uL RBC (4.0-5.2) X10^6/uL Hgb (12.0-16.0) g/dL Hct (36-46) % MCV (80-100) fL MCH (26-34) PG MCHC (30-36) % RDW (11.6-14.8) % Plt Count (150-400) X10^3/uL Neut % (Auto) (50-75) % Lymph % (Auto) (25-40) % [place] % (Auto) (3-14) % Eos % (Auto) (2-4) % Baso % (Auto) (0-2) % Neut # (Auto) (1952-3679) /uL Lymph # (Auto) (9821-6036) /uL [place] # (Auto) (0-900) /uL Eos # (Auto) (0-450) /uL Baso # (Auto) (0-100) /uL Sodium (137-145) mmol/L Potassium (3.4-5.1) mmol/L Chloride (98-107) mmol/L Carbon Dioxide (22-32) mmol/L BUN (7-17) mg/dL Creatinine (0.52-1.04) mg/dL Estimated GFR (>60) mL/min BUN/Creatinine Ratio (6-22) Glucose (80-110) mg/dL Calcium (8.4-10.2) mg/dL Total Bilirubin (0.2-1.3) mg/dL AST (14-36) IU/L ALT (<35) IU/L Alkaline Phosphatase (38-126) U/L Troponin I < 0.012 (0.01-0.034) ng/mL Total Protein (6.3-8.2) g/dL Albumin (3.5-5.0) g/dL Globulin (1.7-4.1) g/dL Albumin/Globulin Ratio (1.0-2.8) Lipase (23-300) U/L Urine RBC (0-5/HPF) Urine WBC (0-5/HPF) Ur Squamous Epith Cells (0-5/HPF) Amorphous Sediment Urine Bacteria (None) Ur Culture Indicated? Urine Dip Bedside Urine Glucose Negative Bedside Urine Bilirubin + 1 Bedside Urine Ketone - Negative Urine Specific [place] 1.030 Bedside Urine Occult Blood - Negative Bedside Urine pH 6.0 Bedside Urine Protein - Negative Bedside Urine Urobilinogen - Negative Bedside Urine Nitrite - Negative Bedside Urine Leukocytes - Negative Esterase Imaging Data CT scan - abdomen/pelvis: Radiologist's Impression: PROCEDURE: CT ABDOMEN PELVIS W CON INDICATIONS: lower ab pain TECHNIQUE: After the administration of intravenous contrast, axial sections acquired from the lung bases to the pubic symphysis. Coronal and sagittal reformats were performed. For radiation dose reduction, the following was used: automated exposure control, adjustment of mA and/or kV according to patient size. COMPARISON: [facility], CT, CT ABDOMEN PELVIS W CON, 07/15/2019, 17:26. FINDINGS: Image quality: Excellent. Lung bases: Mild pneumonia pattern at the deep costophrenic sulcus at the right lower lobe, both medially and laterally without effusion. Please note that pneumonia in this area can produce upper abdominal pain on the right.. Small hiatal hernia. Heart: No significant findings. ABDOMEN: Liver: Unremarkable. Gallbladder: Has been surgically resected. Biliary ducts: Unremarkable. Pancreas: Unremarkable. Spleen: Unremarkable. Adrenal Glands: Unremarkable. Kidneys and Ureters: Unremarkable. Stomach and Bowel: Stomach, small bowel loops, and colon are unremarkable. Peritoneum: No abnormal intraperitoneal fluid. No free air. Ventral Wall: No hernias. Abdominal Nodes: No retroperitoneal or mesenteric adenopathy by size criteria. Vessels: Aorta and inferior vena cava are normal in size. PELVIS: Pelvic Organs: Unremarkable. What appears to be a normal appendix is found at the right lower quadrant (series 2, image 58). Prominent sigmoid diverticulosis without acute diverticulitis. Bladder: Unremarkable. Pelvic Nodes: No enlarged lymph nodes. Miscellaneous: No hernias are seen. 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 None of these appear definitively acute.. IMPRESSION: Right lower lobe pneumonia pattern at the deep costophrenic sulcus both medially and laterally. This can produce upper abdominal pain on the right. Please correlate clinically. No acute disease over the abdomen and pelvis. What appears to be a normal appendix is found at the right lower quadrant adjacent to the iliac vein on the right. Multilevel compression fractures that appear likely chronic at T10 and T11, and L2 and L3. MR scanning can accurately establish the chronicity of such abnormalities. Dictated by: Leoncio Hi M.D. on 10/25/2020 at 17:11 Approved by: Leoncio Hi M.D. on 10/25/2020 at 17:17 ECG Data Interpretation: Normal sinus rhythm rate 71 p.r. interval 144 QRS [address] changes low voltage similar to previous EKGs MDM Narrative Medical decision making narrative: Patient does not have signs or symptoms consistent with pneumonia although pneumonia was found on her CT. On sure what her lower abdominal pain is from. She has chronic compression fractures. She is overall feeling better after Toradol. Recommend outpatient follow-up. Discharge Plan Departure Patient Disposition: Home Clinical Impression: Abdominal pain Instructions: DI for Abdominal Pain-Adult Activity Restrictions/Additional Instructions: *You have been diagnosed with abdominal pain *What to do: Fortunately at this time I do not she see any cause of your a bdominal pain. You do not need any antibiotics at this time *Continue to take medications as directed Tylenol 650 mg every 4-6 hours if needed for [id number] pain *Follow up with your primary care provider in 2-3 days *Return to ER if you should have increasing pain, persistent vomiting, fevers, worsening shortness of breath or any new, worsening or concerning symptoms Prescriptions: No Action alendronate 70 mg tablet 1 tab PO QWEEK RF: 0 albuterol sulfate 90 mcg/actuation HFA aerosol inhaler 1 puff Inhalation DIRECTED RF: 0 omeprazole 20 mg Capsule,Delayed Release(Dr/Ec) 20 mg PO DAILY RF: 0 ipratropium-albuterol 0.5 mg-3 mg(2.5 mg base)/3 mL solution for nebulization 3 ml INHALATION Q4H PRN (Reason: shortness of breath or wheezing) Qty: 15 RF: 0 tramadol 50 mg Tablet 50 mg PO QID PRN (Reason: Pain, Moderate (4-6)) Qty: 20 RF: 0 fluticasone propion-salmeterol 500-50 mcg/dose Blister With Device 1 puff INH BID Qty: 30 RF: 0 metoprolol succinate 25 mg Tablet Extended Release 24 Hr 25 mg PO DAILY Qty: 30 RF: 0 guaifenesin [Mucus Relief ER] 600 mg Tablet Extended Release 12hr 600 mg PO BID Qty: 30 RF: 0 Referrals: Hansel Hanna MD [Primary Care Provider] -
[2020-10-25 16:08] LABS: Troponin I < 0.012 ng/mL (0.01-0.034)
--- NOTE | 2020-10-25 16:21 | DI.CT.S_ITS ---
PROCEDURE: CT ABDOMEN PELVIS W CON INDICATIONS: lower ab pain TECHNIQUE: After the administration of intravenous contrast, axial sections acquired from the lung bases to the pubic symphysis. Coronal and sagittal reformats were performed. For radiation dose reduction, the following was used: automated exposure control, adjustment of mA and/or kV according to patient size. COMPARISON: [facility], CT, CT ABDOMEN PELVIS W CON, 07/15/2019, 17:26. FINDINGS: Image quality: Excellent. Lung bases: Mild pneumonia pattern at the deep costophrenic sulcus at the right lower lobe, both medially and laterally without effusion. Please note that pneumonia in this area can produce upper abdominal pain on the right.. Small hiatal hernia. Heart: No significant findings. ABDOMEN: Liver: Unremarkable. Gallbladder: Has been surgically resected. Biliary ducts: Unremarkable. Pancreas: Unremarkable. Spleen: Unremarkable. Adrenal Glands: Unremarkable. Kidneys and Ureters: Unremarkable. Stomach and Bowel: Stomach, small bowel loops, and colon are unremarkable. Peritoneum: No abnormal intraperitoneal fluid. No free air. Ventral Wall: No hernias. Abdominal Nodes: No retroperitoneal or mesenteric adenopathy by size criteria. Vessels: Aorta and inferior vena cava are normal in size. PELVIS: Pelvic Organs: Unremarkable. What appears to be a normal appendix is found at the right lower quadrant (series 2, image 58). Prominent sigmoid diverticulosis without acute diverticulitis. Bladder: Unremarkable. Pelvic Nodes: No enlarged lymph nodes. Miscellaneous: No hernias are seen. 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 None of these appear definitively acute.. IMPRESSION: Right lower lobe pneumonia pattern at the deep costophrenic sulcus both medially and laterally. This can produce upper abdominal pain on the right. Please correlate clinically. No acute disease over the abdomen and pelvis. What appears to be a normal appendix is found at the right lower quadrant adjacent to the iliac vein on the right. Multilevel compression fractures that appear likely chronic at T10 and T11, and L2 and L3. MR scanning can accurately establish the chronicity of such abnormalities. Dictated by: Leoncio Hi M.D. on 10/25/2020 at 17:11 Approved by: Leoncio Hi M.D. on 10/25/2020 at 17:17
[2020-10-25] MEDS: KETOROLAC 30 MG/ML VIAL 15 MG IV (16:34)
== END 2020-10-25 17:48 | disposition home or self-care (01) ==
PROVIDERS: Emergency Medicine; Emergency Provider Emergency Medicine; PCP Internal Medicine
DX: R10.30 Lower abdominal pain, unspecified (principal); M54.9 Dorsalgia, unspecified
CPT/HCPCS: 36415; 74177; 80053; 81003; 81015; 83690; 84484; 85025; 93005; 96374; 99284; J1885; Q9967

== ENCOUNTER → 2020-12-06 12:00 | Outpatient (CLI) | payer MEDICARE, SELFPAY ==
[2019-09-24 13:51] VITALS: BMI 25.9
== END ==
PROVIDERS: PCP Internal Medicine; Referring Provider Internal Medicine; Visit Provider Internal Medicine
DX: M81.0 Age-related osteoporosis without current pathological fracture (principal); Z78.0 Asymptomatic menopausal state; Z87.891 Personal history of nicotine dependence
CPT/HCPCS: 77080

== ENCOUNTER → 2021-01-17 11:45 | Outpatient (ROUT) | payer MEDICARE, SELFPAY ==
[2019-09-24 13:51] VITALS: BMI 25.9
== END ==
PROVIDERS: PCP Internal Medicine; Visit Provider Internal Medicine Pulmonary Disease
DX: R61 Generalized hyperhidrosis (principal); R91.8 Other nonspecific abnormal finding of lung field
CPT/HCPCS: 87116; 87206

== ENCOUNTER → 2021-01-31 11:20 | Outpatient (CLI) | payer MEDICARE, SELFPAY ==
[2019-09-24 13:51] VITALS: BMI 25.9
== END ==
PROVIDERS: PCP Internal Medicine; Referring Provider Internal Medicine Pulmonary Disease; Visit Provider Internal Medicine Pulmonary Disease
DX: R61 Generalized hyperhidrosis (principal); R91.8 Other nonspecific abnormal finding of lung field
CPT/HCPCS: 87116; 87206

== ENCOUNTER → 2021-02-12 13:09 | Outpatient (ROUT) | payer MEDICARE, SELFPAY ==
[2019-09-24 13:51] VITALS: BMI 25.9
== END ==
PROVIDERS: PCP Internal Medicine; Visit Provider Internal Medicine Pulmonary Disease
DX: R91.8 Other nonspecific abnormal finding of lung field (principal); R61 Generalized hyperhidrosis; Z68.25 Body mass index [BMI] 25.0-25.9, adult
CPT/HCPCS: 87116; 87206

== ENCOUNTER 2021-02-19 14:00 | Outpatient (RCR) | payer MEDICARE, SELFPAY ==
[2019-09-24 13:51] VITALS: BMI 25.9
== END 2021-02-19 16:00 ==
LOC: PUL 14:00
PROVIDERS: PCP Internal Medicine; Referring Provider Internal Medicine Pulmonary Disease; Visit Provider Internal Medicine Pulmonary Disease
DX: J44.9 Chronic obstructive pulmonary disease, unspecified (principal)
CPT/HCPCS: G0424

== ENCOUNTER 2022-04-03 09:48 | Emergency (ER) | payer MEDICARE, SELFPAY ==
[2019-09-24 13:51] VITALS: BMI 25.9
[2022-04-03 10:08] VITALS: BP 165/97; PULSE 93; RESP 20; TEMP 36.1; O2SAT 93; BMI 28.3
--- NOTE | 2022-04-03 10:11 | DI.US.S_ITS ---
PROCEDURE: US PERIPH VENOUS LOW EXTREM RT INDICATIONS: PAIN TECHNIQUE: Real-time imaging, as well as color and pulse Doppler interrogation, were performed of the lower extremity deep veins from the inguinal ligament to the popliteal fossa. COMPARISON: None. FINDINGS: The common femoral, femoral and popliteal veins are normally compressible, and free of intraluminal thrombus. Color and pulse Doppler demonstrate normal phasic intraluminal flow. There is normal augmentation response to distal compression maneuver. IMPRESSION: Negative for deep venous thrombosis. Dictated by: Mervin Arvizu M.D. on 04/03/2022 at 10:14 Approved by: Mervin Arvizu M.D. on 04/03/2022 at 10:14
--- NOTE | 2022-04-03 12:32 | DI.RAD.S_ITS ---
PROCEDURE: XR LUMBAR SPINE 2-3V INDICATIONS: worsening low back pain/sciatica with hx osteomyelitis TECHNIQUE: 3 views of the lumbar spine were acquired. COMPARISON: [facility], CT, CT ABDOMEN PELVIS W CON, 10/25/2020, 16:36. FINDINGS: Bones: There are 5 [id number] lumbar vertebral bodies. Endplate compression deformities are present at T11, T12, L1, L2, and L3. There is diffuse intervertebral disc space narrowing, endplate sclerosis, and osteophytosis. Severe facet sclerosis is present throughout the lumbar spine is well. The compression deformity at the superior L1 endplate is new when compared with the study dated October 25, 2020. Soft tissues: Overlying bowel gas pattern is normal. No suspicious soft tissue calcifications. IMPRESSION: New compression deformity at the superior L1 endplate when compared with the CT from October 25, 2020. L2, L3, T11 and T12 compression deformities are unchanged. Severe degenerative changes are present throughout the lumbar spine. Dictated by: Yadira Choi M.D. on 04/03/2022 at 13:37 Approved by: Yadira Choi M.D. on 04/03/2022 at 13:39
--- NOTE | 2022-04-03 12:32 | DI.RAD.S_ITS ---
PROCEDURE: XR TIBIA FUBULA RT 2V INDICATIONS: hx osteomyelitis s/p hardware, c/f new infection lower leg TECHNIQUE: 2 views of the tibia and fibula were acquired. COMPARISON: [facility], CR, XR KNEE 4+ VIEWS RIGHT, 02/09/2020, 14:16. FINDINGS: Bones: Postoperative and posttraumatic changes are redemonstrated at the distal femur and proximal tibia and fibula. No acute fracture or dislocation. No suspicious bony lesions. Soft tissues: Soft tissue calcifications overlie the lower medial aspect of the right lower extremity. Phleboliths may also be present in this region. IMPRESSION: Postsurgical and posttraumatic changes with soft tissue calcification and probable phleboliths. Dictated by: Yadira Choi M.D. on 04/03/2022 at 13:35 Approved by: Yadira Choi M.D. on 04/03/2022 at 13:36
--- NOTE | 2022-04-03 13:11 | ED.EXTPRO ---
HPI - Extremity Problem General Chief complaint: Extremity Problem,Nontraumatic Stated complaint: blood clot swelling R leg/foot, lower back pain Time Seen by Provider: 04/03/22 12:24 Source: patient Mode of arrival: Wheelchair History of Present Illness HPI Narrative: This is an 82-year-old female presents to emergency department complaining worsening to her right lower extremity with history of traumatic injury with multiple repairs, cellulitis and osteomyelitis infections requiring 6 months of IV antibiotics. Patient states she has not been on antibiotics for quite some time, her most recent surgery was with Dr. Peggy Miranda and patient states that she has noticed warmth to her skin to her right lower extremity. She denies pain because she does not have sensation in this region. Her leg is deformed at baseline but she is able to bear weight. She states that her lumbar spine pain has been worsening with right-sided sciatica, sleep she does not know why this is getting worse 2. She denies any recent trauma. She denies any falls. Related Data Home Medications Medication Instructions Recorded Confirmed albuterol sulfate 90 mcg/actuation 1 puff inhalation DIRECTED 09/25/17 09/24/19 aerosol inhaler alendronate 70 mg tablet 1 tab PO QWEEK 09/25/17 09/24/19 omeprazole 20 mg capsule,delayed 20 mg PO DAILY 09/25/17 09/24/19 release Previous Rx's Medication Instructions Recorded ipratropium 0.5 mg-albuterol 3 mg 3 ml inhalation Q4H PRN shortness 09/16/19 (2.5 mg base)/3 mL nebulization of breath or wheezing #15 mL soln fluticasone 500 mcg-salmeterol 50 1 puff INH BID #30 ea 09/28/19 mcg/dose blistr powdr for inhalation guaifenesin 600 mg tablet, 600 mg PO BID #30 tabs 09/28/19 extended release 12 hr (Mucus Relief ER) metoprolol succinate 25 mg 25 mg PO DAILY #30 tabs 09/28/19 tablet,extended release 24 hr tramadol 50 mg tablet 50 mg PO QID PRN Pain, Moderate 09/28/19 (4-6) #20 tabs cephalexin 500 mg capsule 500 mg PO TID 7 days #21 caps 04/03/22 doxycycline hyclate 100 mg tablet 100 mg PO BID 10 days #20 tabs 04/03/22 tramadol 50 mg tablet 50 mg PO BID PRN pain #14 tabs 04/03/22 Allergies Allergy/AdvReac Type Severity Reaction Status Date / Time No Known Drug Allergies Allergy Verified 04/03/22 10:08 Patient History Medical History (Updated 04/03/22 @ 14:12 by Laura Lira [facility]) COPD (chronic obstructive pulmonary disease) Femur fracture, right Tibia fracture Social History household members: none Smoking Status: Former smoker Smoking Status: Former smoker alcohol intake frequency: holidays/special occasions only Substance Use Type: does not use Exam Initial Vital Signs Initial Vital Signs: Vital Signs Temperature 97.0 F L 04/03/22 10:08 Pulse Rate 93 H 04/03/22 10:08 Respiratory Rate 20 04/03/22 10:08 Blood Pressure 165/97 H 04/03/22 10:08 Pulse Oximetry 93 04/03/22 10:08 Oxygen Delivery Method 04/03/22 10:08 Course Orders Ordered: ED Orders 04/03/22 10:11 periph venous low extrem rt Stat 04/03/22 12:32 XR lumbar spine 2-3V Stat XR tibia fibula RT 2V Stat CBC Auto Diff [Complete Blood Count AUTO DIFF] Stat CMP [Comprehensive Metabolic Panel] Stat CRP [C-Reactive Protein Quant] Stat Lactate (Lactic Acid) Stat Procalcitonin Stat 04/03/22 12:43 Blood Culture Stat Consultations Consultation #1: Consultation with Dr. Jamse Vital Signs Vital signs: Vital Signs - 8 hr 04/03/22 10:08 Temperature 97.0 F L Pulse Rate 93 H Respiratory Rate 20 Blood Pressure 165/97 H Pulse Oximetry 93 Oxygen Delivery Method Room Air MDM - Extremity (Nontraumatic) Imaging Data Extremity x-ray #1: Radiologist's Impression: PROCEDURE:? XR TIBIA FUBULA RT 2V ? INDICATIONS:? hx osteomyelitis s/p hardware, c/f new infection lower leg ? TECHNIQUE:? 2 views of the tibia and fibula were acquired.? ? COMPARISON:? [facility], CR, XR KNEE 4+ VIEWS RIGHT, 02/09/2020, 14:16. ? FINDINGS:? ? Bones:? Postoperative and posttraumatic changes are redemonstrated at the distal femur and proximal tibia and fibula.? No acute fracture or dislocation.? No suspicious bony lesions. ? Soft tissues:? Soft tissue calcifications overlie the lower medial aspect of the right lower extremity.? Phleboliths may also be present in this region. ? IMPRESSION:? Postsurgical and posttraumatic changes with soft tissue calcification and probable phleboliths. ? ? Dictated by: Yadira Choi M.D. on 04/03/2022 at 13:35 ? ? Approved by: Yadira Choi M.D. on 04/03/2022 at 13:36 ? Extremity x-ray #2: Radiologist's Impression: PROCEDURE:? XR LUMBAR SPINE 2-3V ? INDICATIONS:? worsening low back pain/sciatica with hx osteomyelitis ? TECHNIQUE:? 3 views of the lumbar spine were acquired.? ? COMPARISON:? [facility], CT, CT ABDOMEN PELVIS W CON, 10/25/2020, 16:36. ? FINDINGS:? ? Bones:? There are 5 [id number] lumbar vertebral bodies.? Endplate compression deformities are present at T11, T12, L1, L2, and L3.? There is diffuse intervertebral disc space narrowing, endplate sclerosis, and osteophytosis.? Severe facet sclerosis is present throughout the lumbar spine is well.? The compression deformity at the superior L1 endplate is new when compared with the study dated October 25, 2020. ? Soft tissues:? Overlying bowel gas pattern is normal.? No suspicious soft tissue calcifications.? ? ? IMPRESSION:? New compression deformity at the superior L1 endplate when compared with the CT from October 25, 2020. L2, L3, T11 and T12 compression deformities are unchanged. Severe degenerative changes are present throughout the lumbar spine.? ? Dictated by: Yadira Choi M.D. on 04/03/2022 at 13:37 ? ? Approved by: Yadira Choi M.D. on 04/03/2022 at 13:39 ? US - DVT: Radiologist's Impression: PROCEDURE: US PERIPH VENOUS LOW EXTREM RT INDICATIONS: PAIN TECHNIQUE: Real-time imaging, as well as color and pulse Doppler interrogation, were performed of the lower extremity deep veins from the inguinal ligament to the popliteal fossa. COMPARISON: None. FINDINGS: The common femoral, femoral and popliteal veins are normally compressible, and free of intraluminal thrombus. Color and pulse Doppler demonstrate normal phasic intraluminal flow. There is normal augmentation response to distal compression maneuver. IMPRESSION: Negative for deep venous thrombosis. Dictated by: Mervin Arvizu M.D. on 04/03/2022 at 10:14 Approved by: Mervin Arvizu M.D. on 04/03/2022 at 10:14 [facility] Narrative Medical decision making narrative: This is an 82-year-old female presents to the emergency department with warmth and erythema to her right lower extremity which she noticed a few days ago, she denies fever, chills, or systemic illness. She has a history of multiple surgeries to her right lower extremity with degenerative arthritis and osteomyelitis following surgeries. She was on IV antibiotics for total of 6 months. This is approximately 1 year ago, she came in with concern about infection to her right lower extremity as there has been new warmth and swelling. Ultrasound for DVT was negative for DVT, tib-fib x-ray of the right does not show any acute changes or new osteomyelitis, patient was complaining about worsening of her osteoarthritis and low back pain with sciatica symptoms, lumbar spine x-ray shows a new compression deformity at the superior L1 endplate when compared with the CT from September in 2020. Patient has prior L2, L3, T11 and T12 compression deformities and they are unchanged. Severe degenerative changes present throughout the lumbar spine. Consultation with Dr. James from Orthopedics who reviewed patient's imaging with me and agrees that it does not appear to be acute osteomyelitis at this point, there is no soft tissue air, patient's exam and imaging is most consistent with cellulitis infection at this point. Patient will be treated with doxycycline and cephalexin for a total of 10 days, she is encouraged to follow-up with Dr. Yumiko Miranda, was given strict return precautions for worsening back pain, weakness, incontinence fever, chills, and other concerning symptoms. Patient waited in the waiting room for over 4 hours, I was able to order these tests while she was out there, unfortunately she did not get lab work or a CT ordered but after discussion with Orthopedics, this was deemed not necessary. She denies systemic symptoms of illness at this time. She understands to follow-up with her PCP and with Dr. Miranda. Presentation consistent with cellulitis without evidence of necrotizing fasciitis, septic arthritis, deep infection, or severe bacterial infection. Patient is appropriate and amenable to discharge home. Vital signs are stable on repeat examination is unremarkable. Patient has been informed of results. Patient has been given strict return to ER precautions for any new or worsening symptoms. Patient understands to follow up closely with outpatient providers as instructed. Patient understands plan and agrees to discharge home. All questions and concerns answered at this time. Discharge Plan Departure Patient Disposition: Home Clinical Impression: Compression deformity of vertebra Cellulitis Qualifiers: Site of cellulitis: extremity Site of cellulitis of extremity: lower extremity Laterality: right Qualified Code(s): L03.115 - Cellulitis of right lower limb Instructions: DI for Cellulitis -- Adult Activity Restrictions/Additional Instructions: *You have been diagnosed with cellulitis which is a skin infection only at this point. The bone does not appear infected at this time, I looked at your images with the orthopedist who recommends following up and treating with oral antibiotics currently. Please schedule an appointment with Peggy Miranda for follow-up in 1 week or less, you can follow-up with your primary care provider as well, if you have worsening of this, please come back for evaluation. Please elevate this frequently because you likely have poor venous return. Okay to use Tylenol and ibuprofen as needed for pain, I have sent tramadol and antibiotics to your pharmacy. Thank you for your patience, I am sorry that it took so long. *What to do: *Please continue to take your regular medications as directed. [ x] New medication prescriptions sent to your pharmacy: [ ] [ ] New medication written as a paper prescription [ ] No new medications given *Please follow up with your primary care provider in 2-3 days, call for an appointment. Let them know you were seen in the Emergency Department and that we asked that you be seen for follow-up. We will electronically transmit a record of today's note if your PCP is in our system *If you do not have a primary care provider please contact [phone] to establish care with one of the [facility] primary care providers. *Return to Emergency Department if you should have any new, worsening, or concerning symptoms, such as [fever greater than 101F, chills, worsening pain, persistent vomiting or other bothersome symptoms]. Prescriptions: New doxycycline hyclate 100 mg tablet 100 mg PO BID 10 Days Qty: 20 0RF cephalexin 500 mg capsule 500 mg PO TID 7 Days Qty: 21 0RF tramadol 50 mg tablet 50 mg PO BID PRN (Reason: pain) Qty: 14 0RF No Action alendronate 70 mg tablet 1 tab PO QWEEK albuterol sulfate 90 mcg/actuation HFA aerosol inhaler 1 puff Inhalation DIRECTED omeprazole 20 mg Capsule,Delayed Release(Dr/Ec) 20 mg PO DAILY ipratropium-albuterol 0.5 mg-3 mg(2.5 mg base)/3 mL solution for nebulization 3 ml INHALATION Q4H PRN (Reason: shortness of breath or wheezing) Qty: 15 0RF tramadol 50 mg Tablet 50 mg PO QID PRN (Reason: Pain, Moderate (4-6)) Qty: 20 0RF fluticasone propion-salmeterol 500-50 mcg/dose Blister With Device 1 puff INH BID Qty: 30 0RF metoprolol succinate 25 mg Tablet Extended Release 24 Hr 25 mg PO DAILY Qty: 30 0RF guaifenesin [Mucus Relief ER] 600 mg Tablet Extended Release 12hr 600 mg PO BID Qty: 30 0RF Referrals: Hansel Hanna MD [Primary Care Provider] - Peggy Miranda MD [Physician] - Visit Report Forms: Patient Portal/API
== END 2022-04-03 14:06 | disposition home or self-care (01) ==
PROVIDERS: Emergency Provider Nurse Practitioner Critical Care Medicine; PCP Internal Medicine
DX: L03.115 Cellulitis of right lower limb (principal); M43.9 Deforming dorsopathy, unspecified; M54.50 Low back pain, unspecified
CPT/HCPCS: 72100; 73590; 93971; 99281; 99283

== ENCOUNTER 2022-06-06 13:37 | Emergency (ER) | payer MEDICARE, SELFPAY ==
[2019-09-24 13:51] VITALS: BMI 25.9
[2022-06-06] VITALS (7 sets, daily range): BP systolic 120–133; BP diastolic 63–74; PULSE 79–85; RESP 17; TEMP 36.9; O2SAT 90–94; BMI 26.2
[2022-06-06 14:34] LABS: Appearance Urine UA CLEAR; Bilirubin Urine UA 1+ (NEGATIVE); Color Urine UA YELLOW; Glucose Urine UA NEGATIVE (Negative); Ketones Urine UA NEGATIVE (NEGATIVE); Leukocyte Esterase Urine UA NEGATIVE (NEGATIVE); Nitrite Urine UA NEGATIVE (Negative); Occult Blood Urine UA NEGATIVE (Negative); Protein Urine UA NEGATIVE (Negative); Specific Gravity Urine UA >=1.030 (1.000-1.035); Urobilinogen Urine UA 0.2 E.U./dL (0.2); pH Urine UA 5.5 (4.5-8.0)
[2022-06-06 14:42] LABS: Amorphous Sediment Urine 2+; Bacteria Urine Few (2-10); Culture Indicated Urine Specimen Cultured; Ictotest Urine Negative (Negative); RBC Urine None Seen (0-5/HPF); Squamous Epithelial Cell Urine 5-10 /HPF (0-5/HPF); WBC Urine 1-5/HPF (0-5/HPF)
[2022-06-06 14:53] LABS: Add Manual Diff / Slide Review NO; Basophils Absolute Auto 0 /uL (0-100); Basophils Percent Auto 0.2 % (0-2); Eosinophils Absolute Auto 100 /uL (0-450); Hematocrit 36.9 % (36-46); Hemoglobin 12.1 g/dL (12.0-16.0); Lymphocytes Absolute Auto 600 /uL (1100-4500); Lymphocytes Percent Auto 4.7 % (25-40); Mean Corpuscular HGB Conc 32.7 % (30-36); Mean Corpuscular Hemoglobin 29.5 PG (26-34); Monocytes Absolute Auto 1000 /uL (0-900); Monocytes Percent Auto 7.2 % (3-14); Neutrophils Absolute Auto 11900 /uL (1500-7000); Neutrophils Percent Auto 86.9 % (50-75); Platelet Count 316 X10^3/uL (150-400); Red Cell Distribution Width 14.4 % (11.6-14.8); White Blood Cell Count 13.7 X10^3/uL (4.5-11.0)
[2022-06-06 15:06] LABS: Alanine Aminotransferase 17 IU/L (<35); Albumin 4.1 g/dL (3.5-5.0); Albumin Globulin Ratio 1.2 (1.0-2.8); Alkaline Phosphatase 182 U/L (38-126); Aspartate Aminotransferase 23 IU/L (14-36); BUN Creatinine Ratio 33.8 (6-22); Bilirubin Total 0.5 mg/dL (0.2-1.3); Blood Urea Nitrogen 24 mg/dL (7-17); Calcium 9.2 mg/dL (8.4-10.2); Carbon Dioxide 25 mmol/L (22-32); Chloride 102 mmol/L (98-107); Estimated Glomerular Filt Rate > 60 mL/min (>60); Globulin 3.5 g/dL (1.7-4.1); Glucose 112 mg/dL (80-110); HEMOLYSIS 15 (0-50); Lipase 90 U/L (23-300); Potassium 4.6 mmol/L (3.4-5.1); Sodium 138 mmol/L (137-145); Total Protein 7.6 g/dL (6.3-8.2)
--- NOTE | 2022-06-06 16:49 | DI.CT.S_ITS ---
PROCEDURE: CT ABDOMEN PELVIS W CON INDICATIONS: Lower abdominal and back pain TECHNIQUE: After the administration of IV contrast, axial sections were acquired from the lung bases to the pubic symphysis. Coronal and sagittal reformats were performed. For radiation dose reduction, the following was used: automated exposure control, adjustment of mA and/or kV according to patient size. COMPARISON: [facility], CR, XR LUMBAR SPINE 2-3V, 04/03/2022, 12:39. [facility], CT, CT ABDOMEN PELVIS W CON, 10/25/2020, 16:36. FINDINGS: Image quality: Excellent. Lung bases: Unremarkable. Heart: No significant findings. ABDOMEN: Liver: Hepatic steatosis is present. Gallbladder: Removed. Biliary ducts: Unremarkable. Pancreas: Unremarkable. Spleen: Unremarkable. Adrenal Glands: Unchanged 1.4 cm left adrenal gland. Kidneys and Ureters: Unremarkable. Stomach and Bowel: Intestinal gas pattern is nonspecific. There is mild fluid within the right colon overall nonspecific.. Prominent colonic diverticula are present without visualized inflammatory change.. Large hiatal hernia. Peritoneum: No abnormal intraperitoneal fluid. No free air. Ventral Wall: No hernia. Abdominal Nodes: No retroperitoneal or mesenteric adenopathy by size criteria. Vessels: Aorta and inferior vena cava are normal in size. PELVIS: Pelvic Organs: Unremarkable. Bladder: Unremarkable. Pelvic Nodes: No enlarged lymph nodes. Miscellaneous: No inguinal hernias are seen. Bones: Compression deformities at L 2 and L3 are noted, stable since 2021. IMPRESSION: Mild fluid within the right colon overall nonspecific without a definitive obstructive pattern. Diverticulosis. Dictated by: Waleska George M.D. on 06/06/2022 at 17:08 Approved by: Waleska George M.D. on 06/06/2022 at 17:16
--- NOTE | 2022-06-06 16:50 | ED_ITS ---
HPI - Abdominal Pain <Larry Clement PA-C - Last Filed: 06/06/22 17:56> General Chief Complaint: Abdominal Pain Stated Complaint: pain in lower ABD and back can't stand up Time Seen by Provider: 06/06/22 16:14 Source: patient Mode of arrival: Wheelchair History of Present Illness HPI narrative: This is an 82-year-old female presents emergency department complaining of lower abdominal pain for ?months?. Patient states that she has experienced pain in her bilateral ?ovary area? for the last couple of months. Did not report any events that began the pain. Patient states that she is concerned as she reports having a mesh placed to ?hold her bladder in place? 16 years ago. She denies any nausea, vomiting, fevers, vaginal irritation or discharge or bleeding. Patient states that the pain is currently a 4 of 10 but sometimes is ?so bad?. Related Data Home Medications Medication Instructions Recorded Confirmed albuterol sulfate 90 mcg/actuation 1 puff inhalation DIRECTED 09/25/17 09/24/19 aerosol inhaler alendronate 70 mg tablet 1 tab PO QWEEK 09/25/17 09/24/19 omeprazole 20 mg capsule,delayed 20 mg PO DAILY 09/25/17 09/24/19 release Previous Rx's Medication Instructions Recorded ipratropium 0.5 mg-albuterol 3 mg 3 ml inhalation Q4H PRN shortness 09/16/19 (2.5 mg base)/3 mL nebulization of breath or wheezing #15 mL soln fluticasone 500 mcg-salmeterol 50 1 puff INH BID #30 ea 09/28/19 mcg/dose blistr powdr for inhalation guaifenesin 600 mg tablet, 600 mg PO BID #30 tabs 09/28/19 extended release 12 hr (Mucus Relief ER) metoprolol succinate 25 mg 25 mg PO DAILY #30 tabs 09/28/19 tablet,extended release 24 hr tramadol 50 mg tablet 50 mg PO QID PRN Pain, Moderate 09/28/19 (4-6) #20 tabs tramadol 50 mg tablet 50 mg PO BID PRN pain #14 tabs 04/03/22 Allergies Allergy/AdvReac Type Severity Reaction Status Date / Time No Known Drug Allergies Allergy Verified 06/06/22 14:27 Review of Systems <Larry Clement PA-C - Last Filed: 06/06/22 17:56> Review of Systems Narrative: GENERAL: Denies chills, fatigue, malaise, fever, sweats. HEENT: Denies sinus pain, ear pain, sore throat, difficulty swallowing, dizziness. RESPIRATORY: Denies dyspnea, cough, wheezing, hemoptysis, sputum. CARDIOVASCULAR: Denies chest pain, palpitations, orthopnea, edema, GASTROINTESTINAL: Reports abdominal pain, denies Denies nausea, vomiting, diarrhea, constipation, melena. : Denies dysuria, frequency, incontinence, hematuria, urinary retention. MUSCULOSKELETAL: denies weakness, joint pain, or bony pain SKIN: Denies rash, skin lesions, or other NEUROLOGIC: Denies weakness, headache, numbness, change in speech, confusion, seizures, incoordination. PSYCHIATRIC: No concerning psychosocial issues. 12 point review of systems is negative except for those stated above Patient History <Larry Clement PA-C - Last Filed: 06/06/22 17:56> Medical History (Updated 06/06/22 @ 17:56 by Larry Clement PA-C) COPD (chronic obstructive pulmonary disease) Femur fracture, right Tibia fracture Social History household members: none Smoking Status: Former smoker Smoking Status: Former smoker alcohol intake frequency: holidays/special occasions only Substance Use Type: does not use Exam <Larry Clement PA-C - Last Filed: 06/06/22 17:56> Narrative Exam Narrative: GENERAL: Well-developed patient, in mild distress. HEAD: Atraumatic. Normocephalic. EYES: Pupils equal round and reactive. Extraocular motions intact. No scleral icterus. No injection or drainage. ENT: Nose without bleeding, purulent drainage. Throat without erythema, tonsillar hypertrophy or exudate. Airway patent. NECK: Trachea midline. Non tender CARDIOVASCULAR: Regular rate and rhythm without murmurs, gallops, or rubs. RESPIRATORY: Clear to auscultation. Breath sounds equal bilaterally. No wheezes, rales, or rhonchi. GASTROINTESTINAL: No tenderness to palpation to the abdomen or CVA area, nondis tended EXTREMITIES: No edema or joint tenderness. BACK: Nontender without deformity or crepitance. No flank tenderness. NEURO: AOx3. SKIN: No rash or erythema of visible areas Initial Vital Signs Initial Vital Signs: Vital Signs Temperature 98.5 F 06/06/22 14:09 Pulse Rate 85 06/06/22 14:09 Respiratory Rate 17 06/06/22 14:09 Blood Pressure 120/70 06/06/22 14:09 Pulse Oximetry 94 06/06/22 14:09 Oxygen Delivery Method 06/06/22 14:09 <Reid Banuelos MD - Last Filed: 06/12/22 09:18> Initial Vital Signs Initial Vital Signs: Vital Signs Temperature 98.5 F 06/06/22 14:09 Pulse Rate 85 06/06/22 14:09 Respiratory Rate 17 06/06/22 14:09 Blood Pressure 120/70 06/06/22 14:09 Pulse Oximetry 94 06/06/22 14:09 Oxygen Delivery Method 06/06/22 14:09 Course <Larry Clement PA-C - Last Filed: 06/06/22 17:56> Orders Ordered: ED Orders 06/06/22 14:15 Ictotest Urine Stat Urinalysis and Microscopic Stat Urine Culture Stat 06/06/22 14:30 Complete Blood Count AUTO DIFF Stat Comprehensive Metabolic Panel Stat Lipase Stat 06/06/22 16:49 CT abdomen pelvis w con Stat Vital Signs Vital signs: Vital Signs - 8 hr 06/06/22 14:09 06/06/22 16:04 06/06/22 16:04 Temperature 98.5 F Pulse Rate 85 85 Respiratory Rate 17 Blood Pressure 120/70 125/74 Pulse Oximetry 94 92 Oxygen Delivery Method Room Air 06/06/22 16:30 06/06/22 16:30 Temperature Pulse Rate 79 Respiratory Rate Blood Pressure 133/63 Pulse Oximetry 93 Oxygen Delivery Method <Reid Banuelos MD - Last Filed: 06/12/22 09:18> Orders Ordered: ED Orders 06/06/22 14:15 Ictotest Urine Stat Urinalysis and Microscopic Stat Urine Culture Stat 06/06/22 14:30 Complete Blood Count AUTO DIFF Stat Comprehensive Metabolic Panel Stat Lipase Stat 06/06/22 16:49 CT abdomen pelvis w con Stat Vital Signs Vital signs: Vital Signs - 8 hr 06/06/22 14:09 06/06/22 16:04 06/06/22 16:04 Temperature 98.5 F Pulse Rate 85 85 Respiratory Rate 17 Blood Pressure 120/70 125/74 Pulse Oximetry 94 92 Oxygen Delivery Method Room Air 06/06/22 16:30 06/06/22 16:30 Temperature Pulse Rate 79 Respiratory Rate Blood Pressure 133/63 Pulse Oximetry 93 Oxygen Delivery Method MDM - Abdominal Pain <Larry Clement PA-C - Last Filed: 06/06/22 17:56> Lab Data 06/06/22 14:30 06/06/22 14:30 Labs: Lab Results 06/06/22 06/06/22 06/06/22 Range/Units 14:15 14:30 14:30 WBC 13.7 H (4.5-11.0) X10^3/uL RBC 4.10 (4.0-5.2) X10^6/uL Hgb 12.1 (12.0-16.0) g/dL Hct 36.9 (36-46) % MCV 90.0 (80-100) fL MCH 29.5 (26-34) PG MCHC 32.7 (30-36) % RDW 14.4 (11.6-14.8) % Plt Count 316 (150-400) X10^3/uL Neut % (Auto) 86.9 H (50-75) % Lymph % (Auto) 4.7 L (25-40) % Ashley % (Auto) 7.2 (3-14) % Eos % (Auto) 1.0 L (2-4) % Baso % (Auto) 0.2 (0-2) % Neut # (Auto) 02773 H (6084-9113) /uL Lymph # (Auto) 600 L (1498-5266) /uL Ashley # (Auto) 1000 H (0-900) /uL Eos # (Auto) 100 (0-450) /uL Baso # (Auto) 0 (0-100) /uL Sodium 138 (137-145) mmol/L Potassium 4.6 (3.4-5.1) mmol/L Chloride 102 (98-107) mmol/L Carbon Dioxide 25 (22-32) mmol/L BUN 24 H (7-17) mg/dL Creatinine 0.71 (0.52-1.04) mg/dL Estimated GFR > 60 (>60) mL/min BUN/Creatinine Ratio 33.8 H (6-22) Glucose 112 H (80-110) mg/dL Calcium 9.2 (8.4-10.2) mg/dL Total Bilirubin 0.5 (0.2-1.3) mg/dL AST 23 (14-36) IU/L ALT 17 (<35) IU/L Alkaline Phosphatase 182 H (38-126) U/L Total Protein 7.6 (6.3-8.2) g/dL Albumin 4.1 (3.5-5.0) g/dL Globulin 3.5 (1.7-4.1) g/dL Albumin/Globulin Ratio 1.2 (1.0-2.8) Lipase 90 (23-300) U/L Urine Color Yellow Urine Appearance Clear Urine pH 5.5 (4.5-8.0) Ur Specific [place] >=1.030 H (1.000-1.035) Urine Protein Negative (Negative) Urine Glucose (UA) Negative (Negative) g/dL Urine Ketones Negative (NEGATIVE) Urine Occult Blood Negative (Negative) Urine Nitrate Negative (Negative) Urine Bilirubin 1+ H (NEGATIVE) Ur Bilirubin Confirm Negative (Negative) Urine Urobilinogen 0.2 (0.2) E.U./dL Ur Leukocyte Esterase Negative (NEGATIVE) Urine RBC None seen (0-5/HPF) Urine WBC 1-5/hpf (0-5/HPF) Ur Squamous Epith Cells 5-10 /hpf H (0-5/HPF) Amorphous Sediment 2+ Urine Bacteria Few (2-10) H (None) Ur Culture Indicated? Specimen cultured Imaging Data CT scan - abdomen/pelvis: Radiologist's Impression: [place] [address] CT Scan Report Signed Patient: Krys Mullins MR#: [id number] : 1940 Acct:[id number] Age/Sex: 82 / F Date of Service: 06/06/22 Loc: ED Accession Number: [id number] ?? Procedure: CT abdomen pelvis w con Ordering Provider: Larry Clement P.A-C PROCEDURE:? CT ABDOMEN PELVIS W CON ? INDICATIONS:? Lower abdominal and back pain ? TECHNIQUE:? After the administration of IV contrast, axial sections were acquired from the lung bases to the pubic symphysis.? Coronal and sagittal reformats were performed.? For radiation dose reduction, the following was used:? automated exposure control, adjustment of mA and/or kV according to patient size. ? COMPARISON:? [facility], CR, XR LUMBAR SPINE 2-3V, 04/03/2022, 12:39.? [facility], CT, CT ABDOMEN PELVIS W CON, 10/25/2020, 16:36. ? FINDINGS:? Image quality:? Excellent.? ? Lung bases:? Unremarkable.? ? Heart:? No significant findings. ? ? ABDOMEN: Liver:? Hepatic steatosis is present. Gallbladder:? Removed.? ? Biliary ducts:? Unremarkable.? ? Pancreas:? Unremarkable.? ? Spleen:? Unremarkable.? ? Adrenal Glands:? Unchanged 1.4 cm left adrenal gland. Kidneys and Ureters:? Unremarkable.? ? ? Stomach and Bowel:? Intestinal gas pattern is nonspecific.? There is mild fluid within the right colon overall nonspecific..? Prominent colonic diverticula are present without visualized inflammatory change..? Large hiatal hernia. Peritoneum:? No abnormal intraperitoneal fluid.? No free air.? ? Ventral Wall: ? No hernia.? Abdominal Nodes:? No retroperitoneal or mesenteric adenopathy by size criteria.? Vessels:? Aorta and inferior vena cava are normal in size.? ? PELVIS: Pelvic Organs:? Unremarkable.? ? Bladder:? Unremarkable.? ? Pelvic Nodes: No enlarged lymph nodes.? Miscellaneous: No inguinal hernias are seen. ? ? ? Bones:? Compression deformities at L 2 and L3 are noted, stable since 2021. ? ? IMPRESSION:? ? Mild fluid within the right colon overall nonspecific without a definitive obstructive pattern. ? Diverticulosis.? ? ? Dictated by: Waleska George M.D. on 06/06/2022 at 17:08 ? ? Approved by: Waleska George M.D. on 06/06/2022 at 17:16 ? MDM Narrative Medical decision making narrative: MDM * differential diagnosis includes but not limited to ovarian mass, ovarian torsion, small bowel obstruction appendicitis, cholecystitis, * Prior records reviewed: Records review and patient has not been here for similar symptoms in the past * My lab interpretation: Patient's lab work did show a mild leukocytosis which appears chronic for the patient * My imgaing interpretation: CT was unremarkable for any acute findings other than diverticulosis * Clinical Decision Rules/Scores evaluated: None * Independent discussions with: None ED Course: Ms. Galan 2-year-old female presents to the emergency department due to bilateral lower quadrant pain that has been affecting him for months. She states that she was not happy with the workup her primary care provider was doing the elected to come here. No changes in the pain. Lab work showed no acute findings, leukocytosis chronic on further investigation. CT with contrast was ordered which showed diverticulosis. Recommendations given for this. Shared Decision Making: Discussed plan for discharge with the patient Social Considerations: None Disposition: Discharged to home <Reid Banuelos MD - Last Filed: 06/12/22 09:18> Lab Data Labs: Lab Results 06/06/22 06/06/22 06/06/22 Range/Units 14:15 14:30 14:30 WBC 13.7 H (4.5-11.0) X10^3/uL RBC 4.10 (4.0-5.2) X10^6/uL Hgb 12.1 (12.0-16.0) g/dL Hct 36.9 (36-46) % MCV 90.0 (80-100) fL MCH 29.5 (26-34) PG MCHC 32.7 (30-36) % RDW 14.4 (11.6-14.8) % Plt Count 316 (150-400) X10^3/uL Neut % (Auto) 86.9 H (50-75) % Lymph % (Auto) 4.7 L (25-40) % Ashley % (Auto) 7.2 (3-14) % Eos % (Auto) 1.0 L (2-4) % Baso % (Auto) 0.2 (0-2) % Neut # (Auto) 14708 H (0593-8423) /uL Lymph # (Auto) 600 L (4800-8756) /uL Ashley # (Auto) 1000 H (0-900) /uL Eos # (Auto) 100 (0-450) /uL Baso # (Auto) 0 (0-100) /uL Sodium 138 (137-145) mmol/L Potassium 4.6 (3.4-5.1) mmol/L Chloride 102 (98-107) mmol/L Carbon Dioxide 25 (22-32) mmol/L BUN 24 H (7-17) mg/dL Creatinine 0.71 (0.52-1.04) mg/dL Estimated GFR > 60 (>60) mL/min BUN/Creatinine Ratio 33.8 H (6-22) Glucose 112 H (80-110) mg/dL Calcium 9.2 (8.4-10.2) mg/dL Total Bilirubin 0.5 (0.2-1.3) mg/dL AST 23 (14-36) IU/L ALT 17 (<35) IU/L Alkaline Phosphatase 182 H (38-126) U/L Total Protein 7.6 (6.3-8.2) g/dL Albumin 4.1 (3.5-5.0) g/dL Globulin 3.5 (1.7-4.1) g/dL Albumin/Globulin Ratio 1.2 (1.0-2.8) Lipase 90 (23-300) U/L Urine Color Yellow Urine Appearance Clear Urine pH 5.5 (4.5-8.0) Ur Specific [place] >=1.030 H (1.000-1.035) Urine Protein Negative (Negative) Urine Glucose (UA) Negative (Negative) g/dL Urine Ketones Negative (NEGATIVE) Urine Occult Blood Negative (Negative) Urine Nitrate Negative (Negative) Urine Bilirubin 1+ H (NEGATIVE) Ur Bilirubin Confirm Negative (Negative) Urine Urobilinogen 0.2 (0.2) E.U./dL Ur Leukocyte Esterase Negative (NEGATIVE) Urine RBC None seen (0-5/HPF) Urine WBC 1-5/hpf (0-5/HPF) Ur Squamous Epith Cells 5-10 /hpf H (0-5/HPF) Amorphous Sediment 2+ Urine Bacteria Few (2-10) H (None) Ur Culture Indicated? Specimen cultured Discharge Plan Departure Patient Disposition: Home Clinical Impression: Diverticulosis Instructions: DI for Diverticulosis Activity Restrictions/Additional Instructions: Thank you for coming to the [facility] Emergency Department today. The CT we ordered day shows no concerning findings other than the diverticulosis we discussed. Please read the attached information for more information about this. Your white labwork did show the elevated white blood cell count as we discussed but this appears to be chronic for you based on record review. Please follow-up with your primary care provider for further workup and examination of your pain continues. There was no note of the ?mesh? on your CT scan as we discussed. I hope you feel better soon. Prescriptions: No Action alendronate 70 mg tablet 1 tab PO QWEEK albuterol sulfate 90 mcg/actuation HFA aerosol inhaler 1 puff Inhalation DIRECTED omeprazole 20 mg Capsule,Delayed Release(Dr/Ec) 20 mg PO DAILY ipratropium-albuterol 0.5 mg-3 mg(2.5 mg base)/3 mL solution for nebulization 3 ml INHALATION Q4H PRN (Reason: shortness of breath or wheezing) Qty: 15 0RF tramadol 50 mg Tablet 50 mg PO QID PRN (Reason: Pain, Moderate (4-6)) Qty: 20 0RF fluticasone propion-salmeterol 500-50 mcg/dose Blister With Device 1 puff INH BID Qty: 30 0RF metoprolol succinate 25 mg Tablet Extended Release 24 Hr 25 mg PO DAILY Qty: 30 0RF guaifenesin [Mucus Relief ER] 600 mg Tablet Extended Release 12hr 600 mg PO BID Qty: 30 0RF tramadol 50 mg tablet 50 mg PO BID PRN (Reason: pain) Qty: 14 0RF Referrals: Hansel Hanna MD [Primary Care Provider] - Stand Alone Forms: Patient Portal/API <Reid Banuelos MD - Last Filed: 06/12/22 09:18> Cosign ED Attending Cosignature Attestation: I was immediately available in the department for consultation. ?This documentation has been reviewed and I agree with assessment and plan. Supervised by Reid Banuelos MD
== END 2022-06-06 18:30 | disposition home or self-care (01) ==
PROVIDERS: Emergency Medicine; Emergency Provider Physician Assistant Medical; PCP Internal Medicine
DX: K57.90 Diverticulosis of intestine, part unspecified, without perforation or abscess without bleeding (principal)
CPT/HCPCS: 36415; 74177; 80053; 81001; 83690; 85025; 87086; 99283; 99284; Q9967

== ENCOUNTER → 2022-10-09 11:27 | Outpatient (CLI) | payer MEDICARE, SELFPAY ==
[2019-09-24 13:51] VITALS: BMI 25.9
--- NOTE | 2022-10-09 11:28 | DI.RAD.S_ITS ---
PROCEDURE: XR CHEST 2V INDICATIONS: Chest discomfort TECHNIQUE: 2 views of the chest were acquired. COMPARISON: [facility], CR, XR CHEST 1V, 09/24/2019, 11:10. FINDINGS: Surgical changes and devices: None. Lungs and pleura: Mild increased pulmonary vascularity. Mediastinum: Mediastinal contours are normal. Heart size is prominent. Bones and chest wall: No suspicious bony abnormalities. Soft tissues appear unremarkable. IMPRESSION: Mild increased vascularity suggestive of edema. Dictated by: Waleska George M.D. on 10/09/2022 at 15:46 Approved by: Waleska George M.D. on 10/09/2022 at 15:47
== END ==
PROVIDERS: PCP Internal Medicine; Referring Provider Nurse Practitioner Family; Visit Provider Nurse Practitioner Family
DX: S29.011A Strain of muscle and tendon of front wall of thorax, initial encounter (principal); X58.XXXA Exposure to other specified factors, initial encounter
CPT/HCPCS: 71046

== ENCOUNTER 2023-08-20 10:06 | Inpatient (IN) | payer MEDICARE, SELFPAY ==
[2019-09-24 13:51] VITALS: BMI 25.9
[2023-08-20] VITALS (93 sets, daily range): BP systolic 87–137; BP diastolic 54–96; PULSE 79–155; RESP 10–66; TEMP 32–36.6; O2SAT 90–99; BMI 24.2
--- NOTE | 2023-08-20 | DI.ECHO.S_ITS ---
[facility] : : [address] : : [place] : : [id number] : : Phone: [phone] Echocardiogram Report + + :Name: MYA SUERO Study Date: 08/21/2023 Height: 58 in : :[facility] ReadingLocation: Weight: 116 lb : : Gender: Female BSA: 1.4 m2 : :: 1940 Age: 83 yrs BP: 178/82 mmHg: :Reason For Study: CONGESTIVE HEART FAILURE : :Ordering Physician: OR[place], : :GIOVANI Santiago Performed By: Wendy Reynoso : :Referring: GIOVANI PERRY : + + Interpretation Summary Normal sinus rhythm. Normal LV size and wall thickness. Severe global hypokinesis. Ejection fraction is 30-35%. EPSS is 1.2 cm consistent with cardiomyopathy. Mild mitral annular calcification with mild associated mitral regurgitation. Otherwise there are no significant valvular abnormalities. Estimated PA systolic pressure is 59 mmHg assuming right atrial pressure 15 mmHg. No prior study available for comparison. Procedure: The study quality was technically good. A two-dimensional transthoracic echocardiogram with color flow and Doppler was performed in limited views only. The study quality was technically limited. The patient was in atrial fibrillation with heart rates between 78-100 bpm during the exam. Left Ventricle: The left ventricle is normal in size. The ejection fraction is estimated to be 30-35%. Atria: The left atrial size is normal. The right atrium is mildly dilated. Aortic Valve: There is no aortic valve stenosis. Tricuspid Valve: The tricuspid valve leaflets are thin and pliable. There is moderate tricuspid regurgitation. The right ventricular systolic pressure is estimated to be at least 59 mmHg based on an estimated right atrial pressure of 15 mm Hg. Great Vessels: The IVC is dilated (diameter is greater than 2.1 cm) and it collapses less than 50% with a sniff. This suggests a high right atrial pressure of 15 mm Hg. Pericardium/ Pleura There is no pericardial effusion. There is no pleural effusion. MMode/2D Measurements & Calculations LVIDd: 4.2 cm LVOT diam: 2.0 cm LVIDs: 3.4 cm FS: 18.1 % EPSS: 1.2 cm IVSd: 0.68 cm LVPWd: 0.86 cm LV henao. diameter/BSA (cm/m^2): 2.9 LV sys. diameter/BSA (cm/m^2): 2.4 LA A2 area: 16.7 cm2 RA long axis: 5.9 cm LA A4 area: 18.8 cm2 RA area: 20.3 cm2 LA length (vol): 5.8 cm RA vol: 59.1 ml LA vol: 46.0 ml RA : 40.9 ml/m2 LA vol index: 31.8 ml/m2 IVC diam: 2.4 cm Doppler Measurements & Calculations Ao V2 max: 114.8 cm/sec LVOT Max Yuriy: 79.1 cm/sec Ao V2 mean: 85.5 cm/sec LV V1 max P.5 mmHg Ao max P.3 mmHg LV V1 VTI: 15.6 cm Ao mean P.1 mmHg PERLA(I,D): 2.1 cm2 Ao V2 VTI: 24.1 cm PERLA(V,D): 2.2 cm2 sev ratio: 0.65 PERLA indexed to BSA (cm^2/m^2): 1.5 TR max yuriy: 330.2 cm/sec SV(LVOT): 50.9 ml TR max P.6 mmHg Electronically signed by: Dolly Taylor M.D. on Reading Physician:08/21/2023 08:49 AM
--- NOTE | 2023-08-20 10:34 | DI.RAD.S_ITS ---
PROCEDURE: XR CHEST 1V INDICATIONS: Shortness of breath TECHNIQUE: One view of the chest was acquired. COMPARISON: [facility], CR, XR CHEST 2V, 10/09/2022, 11:28. FINDINGS: Surgical changes and devices: None. Lungs and pleura: Mild appearance of increased vascularity Mediastinum: Mediastinal contours appear normal. Heart size is normal. Bones and chest wall: No suspicious bony lesions. Overlying soft tissues appear unremarkable. IMPRESSION: Increased vascularity suggestive of edema. Dictated by: Waleska George M.D. on 08/20/2023 at 11:29 Approved by: Waleska George M.D. on 08/20/2023 at 11:29
--- NOTE | 2023-08-20 10:37 | ED_ITS ---
HPI - General Adult General Chief complaint: Shortness of Breath/Dyspnea Stated complaint: extreme pain anemia and arthritis Time Seen by Provider: 08/20/23 10:34 Source: patient Mode of arrival: Wheelchair History of Present Illness HPI narrative: 83-year-old woman with a history of COPD, reflux, paroxysmal atrial fibrillation not currently anticoagulated, chronic lower venous stasis changes with prior history of traumatic injury, cellulitis, osteomyelitis who presents today saying that she is increasingly short of breath, concerned that she is breathing too hard, difficulty lying down flat and noticing quite a bit of swelling in her lower extremities far worse than her baseline. This is all been going on for about a week. She does not describe any preceding palpitations, chest pain, upper respiratory symptoms, cough, fevers, nausea, vomiting, diarrhea. Related Data Home Medications Medication Instructions Recorded Confirmed albuterol sulfate 90 mcg/actuation 1 puff inhalation DIRECTED 09/25/17 09/24/19 aerosol inhaler alendronate 70 mg tablet 1 tab PO QWEEK 09/25/17 09/24/19 omeprazole 20 mg capsule,delayed 20 mg PO DAILY 09/25/17 09/24/19 release Previous Rx's Medication Instructions Recorded ipratropium 0.5 mg-albuterol 3 mg 3 ml inhalation Q4H PRN shortness 09/16/19 (2.5 mg base)/3 mL nebulization of breath or wheezing #15 mL soln fluticasone 500 mcg-salmeterol 50 1 puff INH BID #30 ea 09/28/19 mcg/dose blistr powdr for inhalation guaifenesin 600 mg tablet, 600 mg PO BID #30 tabs 09/28/19 extended release 12 hr (Mucus Relief ER) metoprolol succinate 25 mg 25 mg PO DAILY #30 tabs 09/28/19 tablet,extended release 24 hr tramadol 50 mg tablet 50 mg PO QID PRN Pain, Moderate 09/28/19 (4-6) #20 tabs tramadol 50 mg tablet 50 mg PO BID PRN pain #14 tabs 04/03/22 Allergies Allergy/AdvReac Type Severity Reaction Status Date / Time No Known Drug Allergies Allergy Verified 06/06/22 14:27 Review of Systems Review of Systems Narrative: Pertinent positive and negative findings as per HPI Patient History Medical History (Updated 04/24/24 @ 12:55 by Yadi Haywood MD) Paroxysmal A-fib Tibia fracture Femur fracture, right COPD (chronic obstructive pulmonary disease) Social History household members: none Smoking Status: Former smoker Smoking Status: Former smoker alcohol intake frequency: holidays/special occasions only Substance Use Type: does not use Exam Initial Vital Signs Initial Vital Signs: Vital Signs Temperature 97.7 F 08/20/23 10:17 Pulse Rate 130 H 08/20/23 10:17 Respiratory Rate 30 H 08/20/23 10:17 Blood Pressure 103/72 08/20/23 10:17 Pulse Oximetry 94 08/20/23 10:17 Oxygen Delivery Method Room Air 08/20/23 10:17 General: Frail-appearing, tachypneic but able to speak in full sentences HEENT: Moist mucous membranes, normal sclera with reactive pupils, Neck: No JVD, supple Respiratory: Lungs with significant crackles up to at least mid lung cornejo, rhonchi in the right lung cornejo Cardiac: Rapid heart rate, irregular Abdomen: Soft, nontender, good bowel tones, no flank pain Skin: Warm and dry, no rashes Neurologic: Globally weak but otherwise Grossly neurologically intact with no obvious asymmetries or abnormalities Extremities: 3+ lower extremity edema with chronic surgical changes and abnormalities in the right lower extremity Psych: Cooperative, appropriate insight and affect Course Orders Ordered: ED Orders 08/20/23 10:34 XR chest 1V Stat Measure peak expiratory flow ONCE RT Consult Eval and Treat NOW 08/20/23 10:38 Complete Blood Count AUTO DIFF Stat Comprehensive Metabolic Panel Stat Lactate (Lactic Acid) Stat NT-proBNP (BNP-Adult 18+) Stat Prothrombin Time INR Stat Troponin I Stat 08/20/23 10:50 BiPAP Ventilatory Support RT PROTOCOL DILTIAZEM (Diltiazem 125 Mg/125 Ml-D5w) 125 mg in 125 mls @ 5 mls/hr IV TITRATE AUGUSTUS; Protocol Last Admin: 08/20/23 13:02 Dose: 5 mg/hr, 5 mls/hr Documented By: RLS Discontinued Medications Diltiazem HCl (Diltiazem 5 Mg/Ml Sdv) 10 mg IV NOW ONE Stop: 08/20/23 12:52 Last Admin: 08/20/23 13:00 Dose: 10 mg Documented By: RLS Furosemide (Furosemide 40 Mg/4 Ml Vial) 40 mg IV NOW ONE Stop: 08/20/23 10:51 Last Admin: 08/20/23 11:05 Dose: 40 mg Documented By: GRACIA Methylprednisolone (Methylprednisolone 125 Mg/2 Ml Vial) 125 mg IV NOW ONE Stop: 08/20/23 10:51 Last Admin: 08/20/23 11:05 Dose: 125 mg Documented By: GRACIA Vital Signs Vital signs: Vital Signs - 8 hr 08/20/23 10:17 08/20/23 10:28 08/20/23 10:30 Temperature 97.7 F Pulse Rate 130 H 145 H Respiratory Rate 30 H Blood Pressure 103/72 Pulse Oximetry 94 90 L 92 Oxygen Delivery Method Room Air Fraction of Inspired Oxygen 08/20/23 10:31 08/20/23 10:31 08/20/23 10:35 Temperature Pulse Rate 142 H Respiratory Rate Blood Pressure 87/65 L 90/71 Pulse Oximetry 93 Oxygen Delivery Method Fraction of Inspired Oxygen 08/20/23 10:35 08/20/23 10:41 08/20/23 10:41 Temperature Pulse Rate 133 H 141 H Respiratory Rate Blood Pressure 137/73 Pulse Oximetry 93 94 Oxygen Delivery Method Fraction of Inspired Oxygen 08/20/23 10:50 08/20/23 10:50 08/20/23 11:00 Temperature Pulse Rate 143 H Respiratory Rate Blood Pressure 115/69 107/76 Pulse Oximetry 95 Oxygen Delivery Method Fraction of Inspired Oxygen 08/20/23 11:00 08/20/23 11:10 08/20/23 11:10 Temperature Pulse Rate 143 H 143 H Respiratory Rate Blood Pressure 101/80 Pulse Oximetry 94 98 Oxygen Delivery Method Fraction of Inspired Oxygen 08/20/23 11:18 08/20/23 11:20 08/20/23 11:20 Temperature Pulse Rate 142 H Respiratory Rate Blood Pressure 114/80 114/80 Pulse Oximetry 99 Oxygen Delivery Method Fraction of Inspired Oxygen 30 08/20/23 11:25 08/20/23 11:25 08/20/23 11:30 Temperature Pulse Rate 142 H Respiratory Rate 29 H Blood Pressure 114/76 118/73 Pulse Oximetry 98 Oxygen Delivery Method Fraction of Inspired Oxygen 08/20/23 11:30 08/20/23 11:35 08/20/23 11:35 Temperature Pulse Rate 149 H 144 H Respiratory Rate Blood Pressure 122/80 Pulse Oximetry 98 98 Oxygen Delivery Method Fraction of Inspired Oxygen 08/20/23 11:40 08/20/23 11:40 08/20/23 11:46 Temperature Pulse Rate 143 H Respiratory Rate Blood Pressure 120/93 H 111/80 Pulse Oximetry 98 Oxygen Delivery Method Fraction of Inspired Oxygen 08/20/23 11:46 08/20/23 11:50 08/20/23 11:50 Temperature Pulse Rate 142 H 155 H Respiratory Rate Blood Pressure 115/77 Pulse Oximetry 98 97 Oxygen Delivery Method Fraction of Inspired Oxygen 08/20/23 11:55 08/20/23 11:55 08/20/23 12:00 Temperature Pulse Rate 143 H 148 H Respiratory Rate Blood Pressure 118/80 Pulse Oximetry 98 98 Oxygen Delivery Method Fraction of Inspired Oxygen 08/20/23 12:00 08/20/23 12:05 08/20/23 12:05 Temperature Pulse Rate 145 H Respiratory Rate Blood Pressure 119/86 106/82 Pulse Oximetry 98 Oxygen Delivery Method Fraction of Inspired Oxygen 08/20/23 12:10 08/20/23 12:10 08/20/23 12:15 Temperature Pulse Rate 143 H 141 H Respiratory Rate Blood Pressure 101/77 Pulse Oximetry 98 98 Oxygen Delivery Method Fraction of Inspired Oxygen 08/20/23 12:15 08/20/23 12:20 08/20/23 12:20 Temperature Pulse Rate 144 H Respiratory Rate Blood Pressure 98/79 111/96 H Pulse Oximetry 98 Oxygen Delivery Method Fraction of Inspired Oxygen 08/20/23 12:25 08/20/23 12:25 08/20/23 12:30 Temperature Pulse Rate 146 H 147 H Respiratory Rate Blood Pressure 111/76 Pulse Oximetry 99 97 Oxygen Delivery Method Fraction of Inspired Oxygen 08/20/23 12:30 08/20/23 12:36 08/20/23 12:36 Temperature Pulse Rate 142 H Respiratory Rate 29 H Blood Pressure 118/68 106/77 Pulse Oximetry 97 Oxygen Delivery Method Fraction of Inspired Oxygen 08/20/23 12:42 08/20/23 12:42 08/20/23 12:46 Temperature Pulse Rate 143 H Respiratory Rate 29 H Blood Pressure 101/65 114/83 Pulse Oximetry 98 Oxygen Delivery Method Fraction of Inspired Oxygen 08/20/23 12:46 08/20/23 12:50 08/20/23 12:50 Temperature Pulse Rate 148 H 144 H Respiratory Rate 28 H 29 H Blood Pressure 106/86 Pulse Oximetry 97 97 Oxygen Delivery Method Fraction of Inspired Oxygen 08/20/23 12:55 08/20/23 12:55 08/20/23 13:00 Temperature Pulse Rate 147 H 143 H Respiratory Rate 37 H Blood Pressure 117/77 117/77 Pulse Oximetry 97 Oxygen Delivery Method Fraction of Inspired Oxygen Medical Decision Making Lab Data 08/20/23 10:38 08/20/23 10:38 Labs: Lab Results 08/20/23 08/20/23 Range/Units 10:38 12:31 WBC 9.8 (4.5-11.0) X10^3/uL RBC 3.78 L (4.0-5.2) X10^6/uL Hgb 10.5 L (12.0-16.0) g/dL Hct 32.4 L (36-46) % MCV 85.9 (80-100) fL MCH 27.7 (26-34) PG MCHC 32.3 (30-36) % RDW 15.0 H (11.6-14.8) % Plt Count 421 H (150-400) X10^3/uL Neut % (Auto) 87.9 H (50-75) % Lymph % (Auto) 3.7 L (25-40) % [place] % (Auto) 5.9 (3-14) % Eos % (Auto) 2.0 (2-4) % Baso % (Auto) 0.5 (0-2) % Neut # (Auto) 8600 H (9465-4389) /uL Lymph # (Auto) 400 L (9958-0123) /uL [place] # (Auto) 600 (0-900) /uL Eos # (Auto) 200 (0-450) /uL Baso # (Auto) 0 (0-100) /uL PT 12.4 (9.4-12.5) SECONDS INR 1.1 (0.9-1.3) Sodium 138 (137-145) mmol/L Potassium 4.5 (3.4-5.1) mmol/L Chloride 107 (98-107) mmol/L Carbon Dioxide 25 (22-32) mmol/L BUN 29 H (7-17) mg/dL Creatinine 0.63 (0.52-1.04) mg/dL Estimated GFR > 60 (>60) mL/min BUN/Creatinine Ratio 46.0 H (6-22) Glucose 192 H (80-110) mg/dL Lactate 2.2 H 1.6 (0.7-2.1) mmol/L Calcium 9.2 (8.4-10.2) mg/dL Total Bilirubin 0.7 (0.2-1.3) mg/dL AST 25 (14-36) IU/L ALT 15 (<35) IU/L Alkaline Phosphatase 69 (38-126) U/L Troponin I < 0.012 (0.01-0.034) ng/mL NT-Pro-B Natriuret Pep 2350 H (<450) pg/mL Total Protein 7.4 (6.3-8.2) g/dL Albumin 3.8 (3.5-5.0) g/dL Globulin 3.6 (1.7-4.1) g/dL Albumin/Globulin Ratio 1.1 (1.0-2.8) MDM Narrative Medical decision making narrative: CC: Increased shortness of breath and lower extremity edema Complicating co-morbidities: COPD, paroxysmal atrial fibrillation Data collected from: patient Medical records reviewed: Discharge summary from hospitalization for COPD exacerbation in September of 2019 reviewed Differential considered: Acute coronary syndrome, right related congestive heart failure, other related acute congestive heart failure, viral syndrome Exam documented above, pertinent findings include: Significant crackles in both lungs, rhonchi in the right side, tachypnea. Tachypnea improved significantly with nasal cannula oxygen in place. Room air oxygenation was at 92%. Heart rate is rapid and irregular, unable to fully assess for jugular venous distention, significant lower extremity edema bilaterally Lab Test results independently reviewed as above. Pertinent findings: CBC does not show leukocytosis. H and H is 10.5 and 32.4, platelets slightly elevated at 421 Chemistries show normal creatinine, glucose is slightly elevated at 192, lactic is Elevated at 2.2 troponin is undetectable BNP is elevated at 2350 Independently reviewed EKG: Atrial fibrillation at a rate of 141, nonspecific STT wave changes with out obvious ST elevation Imaging studies independently reviewed: Chest x-ray is consistent with increasing pulmonary infiltrates consistent with her presentation of congestive heart failure Consultations: Reviewed with Dr. Angela, hospitalist, patient will be admitted Treatments: Patient was placed on BiPAP for positive intrathoracic pressure and given 40 mg of Lasix and so far has had an almost 800 cc output of fluid Diltiazem bolus and drip started for rate control Re-evaluations: Patient is feeling better after the volume output and on BiPAP however continues to be in atrial fibrillation in the 150 range. We will begin diltiazem drip for rate control. Patient and her are aware that she is going to be admitted to the hospitalist service Discussion: 83-year-old woman with progressive dyspnea clinical exam consistent with overwhelming fluid overload and heart failure. She knows that she has had episodes of atrial fibrillation in the past does not know how frequently they occur and is unaware of her rapid heart rate at this time. I suspect she has likely been in a rapid AFib long enough to exacerbate her heart failure. She has a history of COPD she was given steroids in the emergency department but I suspect the majority of her wheeze is, again, related to heart failure. She also had questions about her rheumatoid arthritis. Apparently this is a recent diagnosis for her and she has not yet seen a traffic inspector. Critical Care Time Critical Care Time Critical Care Time: Yes Total Critical Care Time: 33 Attestation: Critical care time is separate from other billable procedures. There is a high probability of a significant, sudden or life-threatening deterioration that requires my full and direct attention, intervention and personal management. This critical care time includes consultation with family and other consulting doctors, review of records, and interpretation of data from labs, EKGs and imaging as well as managements of respiratory failure secondary to acute congestive heart failure with management with BiPAP and IV blood pressure and rate control medications Discharge Plan Departure Patient Disposition: Admitted As Inpatient Clinical Impression: Atrial fibrillation with rapid ventricular response Acute CHF (congestive heart failure) Qualifiers: Heart failure type: unspecified Qualified Code(s): I50.9 - Heart failure, unspecified
[2023-08-20 10:55] LABS: Add Manual Diff / Slide Review NO; Basophils Absolute Auto 0 /uL (0-100); Basophils Percent Auto 0.5 % (0-2); Eosinophils Absolute Auto 200 /uL (0-450); Hematocrit 32.4 % (36-46); Hemoglobin 10.5 g/dL (12.0-16.0); Lymphocytes Absolute Auto 400 /uL (1100-4500); Lymphocytes Percent Auto 3.7 % (25-40); Mean Corpuscular HGB Conc 32.3 % (30-36); Mean Corpuscular Hemoglobin 27.7 PG (26-34); Mean Corpuscular Volume 85.9 fL (80-100); Monocytes Absolute Auto 600 /uL (0-900); Monocytes Percent Auto 5.9 % (3-14); Neutrophils Absolute Auto 8600 /uL (1500-7000); Neutrophils Percent Auto 87.9 % (50-75); Platelet Count 421 X10^3/uL (150-400); Red Blood Cell Count 3.78 X10^6/uL (4.0-5.2); White Blood Cell Count 9.8 X10^3/uL (4.5-11.0)
[2023-08-20 11:02] LABS: INR 1.1 (0.9-1.3); Prothrombin Time 12.4 SECONDS (9.4-12.5)
[2023-08-20] MEDS: methylPREDNISolone 125 MG/2 ML VIAL IV (11:05)
[2023-08-20] MEDS: FUROSEMIDE 40 MG/4 ML VIAL IV (11:05)
[2023-08-20 11:06] LABS: Alanine Aminotransferase 15 IU/L (<35); Albumin 3.8 g/dL (3.5-5.0); Albumin Globulin Ratio 1.1 (1.0-2.8); Alkaline Phosphatase 69 U/L (38-126); Aspartate Aminotransferase 25 IU/L (14-36); Bilirubin Total 0.7 mg/dL (0.2-1.3); Blood Urea Nitrogen 29 mg/dL (7-17); Calcium 9.2 mg/dL (8.4-10.2); Carbon Dioxide 25 mmol/L (22-32); Chloride 107 mmol/L (98-107); Estimated Glomerular Filt Rate > 60 mL/min (>60); Globulin 3.6 g/dL (1.7-4.1); Glucose 192 mg/dL (80-110); HEMOLYSIS 33 (0-50); Potassium 4.5 mmol/L (3.4-5.1); Sodium 138 mmol/L (137-145); Total Protein 7.4 g/dL (6.3-8.2)
[2023-08-20 11:07] LABS: Lactate (Lactic Acid) 2.2 mmol/L (0.7-2.1)
[2023-08-20 11:18] LABS: NT-proBNP (BNP-Adult 18+) 2350 pg/mL (<450); Troponin I < 0.012 ng/mL (0.01-0.034)
--- NOTE | 2023-08-20 11:20 | PC.NURSE ---
Pt reports sob. states arthritis pain is flaring up. Pitting edema noted on bilateral lower extremity and edema to wrists. Pt states she has not had a fluid issue before. Pt endorses hx of copd. wheezing noted
[2023-08-20 12:19] LABS: Reflexed Lactate in 2 Hours Y
[2023-08-20 12:57] LABS: Lactate 2HR (Lactic Acid Rflx) 1.6 mmol/L (0.7-2.1)
[2023-08-20] MEDS: dilTIAZem 5 MG/ML SDV 10 MG IV (13:00)
[2023-08-20] MEDS: DILTIAZEM 125 MG/125 ML PIGGYBACK IV (13:02)
--- NOTE | 2023-08-20 14:44 | PM.HP.1 ---
History of Present Illness History of Present Illness Date Patient Seen: 08/20/23 Time Patient Seen: 15:07 Chief complaint: extreme pain anemia and arthritis Narrative: Patient is an 83-year-old female with a history of COPD, GERD, PAF, and venous stasis who presents with 2 weeks of progressive leg edema followed by several days of progressive shortness a breath. She was found in the emergency department to be in atrial fibrillation with rapid response. A diltiazem drip was started with minimal effect on heart rate. She initially was hypoxic and was placed on BiPAP for labored breathing. She did diurese with Lasix and put a L of urine out. She was transferred to floor and came off from BiPAP without difficulties. She was stable on 2 L of oxygen. She denies any chest pain. She does see a photograph editor at [facility], she believes it is Dr. Abad. It has been sometime since she is seen him. She does not take a diuretic at home. She has had some orthopnea and also notes a cough for the last week. Chest x-ray in the emergency department revealed pulmonary edema but no infiltrate. She has a history of a lower extremity fracture complicated by osteomyelitis requiring 6 months of antibiotics distantly. She has multiple scars on lower extremity and and day tissue defect that is well healed. She denies difficulties with urination, or constipation. No abdominal pain or change in appetite. She lives alone at [place], her son is her power of deputy prosecuting attorney and proxy decision maker. He lives in [facility]. [facility] Medical History Paroxysmal A-fib Tibia fracture Femur fracture, right COPD (chronic obstructive pulmonary disease) Social History household members: none Smoking Status: Former smoker Meds Home Medications and Allergies Home Medications Medication Instructions Recorded Confirmed Type albuterol sulfate 90 mcg/actuation 1 puff inhalation DIRECTED 09/25/17 08/20/23 History aerosol inhaler omeprazole 20 mg capsule,delayed 20 mg PO DAILY 09/25/17 08/20/23 History release ipratropium 0.5 mg-albuterol 3 mg 3 ml inhalation Q4H PRN shortness 09/16/19 09/24/19 Rx (2.5 mg base)/3 mL nebulization of breath or wheezing #15 mL soln fluticasone 500 mcg-salmeterol 50 1 puff INH BID #30 ea 09/28/19 Rx mcg/dose blistr powdr for inhalation metoprolol succinate 25 mg 25 mg PO DAILY #30 tabs 09/28/19 Rx tablet,extended release 24 hr tramadol 50 mg tablet 50 mg PO QID PRN Pain, Moderate 09/28/19 Rx (4-6) #20 tabs guaifenesin 600 mg tablet, 600 mg PO BID PRN Cough 08/20/23 08/20/23 History extended release 12 hr (Mucus Relief ER) Allergies Allergy/AdvReac Type Severity Reaction Status Date / Time No Known Drug Allergies Allergy Verified 06/06/22 14:27 Review of Systems Review of Systems Narrative: All else reviewed and otherwise unremarkable except as noted in the history and physical. Exam Vital Signs (past 8 hours): - 08/20/23 10:17 08/20/23 10:28 08/20/23 10:30 Temperature 97.7 F Pulse Rate 130 H 145 H Respiratory Rate 30 H Blood Pressure 103/72 Pulse Oximetry 94 90 L 92 Oxygen Delivery Method Room Air Oxygen Flow Rate Fraction of Inspired Oxygen 08/20/23 10:31 08/20/23 10:31 08/20/23 10:35 Temperature Pulse Rate 142 H Respiratory Rate Blood Pressure 87/65 L 90/71 Pulse Oximetry 93 Oxygen Delivery Method Oxygen Flow Rate Fraction of Inspired Oxygen 08/20/23 10:35 08/20/23 10:41 08/20/23 10:41 Temperature Pulse Rate 133 H 141 H Respiratory Rate Blood Pressure 137/73 Pulse Oximetry 93 94 Oxygen Delivery Method Oxygen Flow Rate Fraction of Inspired Oxygen 08/20/23 10:50 08/20/23 10:50 08/20/23 11:00 Temperature Pulse Rate 143 H Respiratory Rate Blood Pressure 115/69 107/76 Pulse Oximetry 95 Oxygen Delivery Method Oxygen Flow Rate Fraction of Inspired Oxygen 08/20/23 11:00 08/20/23 11:10 08/20/23 11:10 Temperature Pulse Rate 143 H 143 H Respiratory Rate Blood Pressure 101/80 Pulse Oximetry 94 98 Oxygen Delivery Method Oxygen Flow Rate Fraction of Inspired Oxygen 08/20/23 11:18 08/20/23 11:20 08/20/23 11:20 Temperature Pulse Rate 142 H Respiratory Rate Blood Pressure 114/80 114/80 Pulse Oximetry 99 Oxygen Delivery Method Oxygen Flow Rate Fraction of Inspired Oxygen 30 08/20/23 11:25 08/20/23 11:25 08/20/23 11:30 Temperature Pulse Rate 142 H Respiratory Rate 29 H Blood Pressure 114/76 118/73 Pulse Oximetry 98 Oxygen Delivery Method Oxygen Flow Rate Fraction of Inspired Oxygen 08/20/23 11:30 08/20/23 11:35 08/20/23 11:35 Temperature Pulse Rate 149 H 144 H Respiratory Rate Blood Pressure 122/80 Pulse Oximetry 98 98 Oxygen Delivery Method Oxygen Flow Rate Fraction of Inspired Oxygen 08/20/23 11:40 08/20/23 11:40 08/20/23 11:46 Temperature Pulse Rate 143 H Respiratory Rate Blood Pressure 120/93 H 111/80 Pulse Oximetry 98 Oxygen Delivery Method Oxygen Flow Rate Fraction of Inspired Oxygen 08/20/23 11:46 08/20/23 11:50 08/20/23 11:50 Temperature Pulse Rate 142 H 155 H Respiratory Rate Blood Pressure 115/77 Pulse Oximetry 98 97 Oxygen Delivery Method Oxygen Flow Rate Fraction of Inspired Oxygen 08/20/23 11:55 08/20/23 11:55 08/20/23 12:00 Temperature Pulse Rate 143 H 148 H Respiratory Rate Blood Pressure 118/80 Pulse Oximetry 98 98 Oxygen Delivery Method Oxygen Flow Rate Fraction of Inspired Oxygen 08/20/23 12:00 08/20/23 12:05 08/20/23 12:05 Temperature Pulse Rate 145 H Respiratory Rate Blood Pressure 119/86 106/82 Pulse Oximetry 98 Oxygen Delivery Method Oxygen Flow Rate Fraction of Inspired Oxygen 08/20/23 12:10 08/20/23 12:10 08/20/23 12:15 Temperature Pulse Rate 143 H 141 H Respiratory Rate Blood Pressure 101/77 Pulse Oximetry 98 98 Oxygen Delivery Method Oxygen Flow Rate Fraction of Inspired Oxygen 08/20/23 12:15 08/20/23 12:20 08/20/23 12:20 Temperature Pulse Rate 144 H Respiratory Rate Blood Pressure 98/79 111/96 H Pulse Oximetry 98 Oxygen Delivery Method Oxygen Flow Rate Fraction of Inspired Oxygen 08/20/23 12:25 08/20/23 12:25 08/20/23 12:30 Temperature Pulse Rate 146 H 147 H Respiratory Rate Blood Pressure 111/76 Pulse Oximetry 99 97 Oxygen Delivery Method Oxygen Flow Rate Fraction of Inspired Oxygen 08/20/23 12:30 08/20/23 12:36 08/20/23 12:36 Temperature Pulse Rate 142 H Respiratory Rate 29 H Blood Pressure 118/68 106/77 Pulse Oximetry 97 Oxygen Delivery Method Oxygen Flow Rate Fraction of Inspired Oxygen 08/20/23 12:42 08/20/23 12:42 08/20/23 12:46 Temperature Pulse Rate 143 H Respiratory Rate 29 H Blood Pressure 101/65 114/83 Pulse Oximetry 98 Oxygen Delivery Method Oxygen Flow Rate Fraction of Inspired Oxygen 08/20/23 12:46 08/20/23 12:50 08/20/23 12:50 Temperature Pulse Rate 148 H 144 H Respiratory Rate 28 H 29 H Blood Pressure 106/86 Pulse Oximetry 97 97 Oxygen Delivery Method Oxygen Flow Rate Fraction of Inspired Oxygen 08/20/23 12:55 08/20/23 12:55 08/20/23 13:00 Temperature Pulse Rate 147 H 143 H Respiratory Rate 37 H Blood Pressure 117/77 117/77 Pulse Oximetry 97 Oxygen Delivery Method Oxygen Flow Rate Fraction of Inspired Oxygen 08/20/23 13:00 08/20/23 13:01 08/20/23 13:01 Temperature Pulse Rate 146 H 146 H Respiratory Rate 33 H 33 H Blood Pressure 113/78 Pulse Oximetry 98 97 Oxygen Delivery Method Oxygen Flow Rate Fraction of Inspired Oxygen 08/20/23 13:05 08/20/23 13:05 08/20/23 13:10 Temperature Pulse Rate 131 H Respiratory Rate 33 H Blood Pressure 92/69 114/78 Pulse Oximetry 97 Oxygen Delivery Method Oxygen Flow Rate Fraction of Inspired Oxygen 08/20/23 13:10 08/20/23 13:15 08/20/23 13:15 Temperature Pulse Rate 124 H 116 H Respiratory Rate 29 H 32 H Blood Pressure 95/65 Pulse Oximetry 96 97 Oxygen Delivery Method Oxygen Flow Rate Fraction of Inspired Oxygen 08/20/23 13:20 08/20/23 13:20 08/20/23 13:25 Temperature Pulse Rate 127 H Respiratory Rate 27 H Blood Pressure 99/70 105/76 Pulse Oximetry 97 Oxygen Delivery Method Oxygen Flow Rate Fraction of Inspired Oxygen 08/20/23 13:25 08/20/23 13:29 08/20/23 13:30 Temperature Pulse Rate 132 H 138 H Respiratory Rate 26 H 28 H Blood Pressure 103/77 Pulse Oximetry 97 97 Oxygen Delivery Method Oxygen Flow Rate Fraction of Inspired Oxygen 08/20/23 13:30 08/20/23 13:35 08/20/23 13:35 Temperature Pulse Rate 139 H 136 H Respiratory Rate 30 H 28 H Blood Pressure 102/76 Pulse Oximetry 96 96 Oxygen Delivery Method Oxygen Flow Rate Fraction of Inspired Oxygen 08/20/23 13:40 08/20/23 13:40 08/20/23 13:45 Temperature Pulse Rate 142 H Respiratory Rate 34 H Blood Pressure 107/86 100/74 Pulse Oximetry 97 Oxygen Delivery Method Oxygen Flow Rate Fraction of Inspired Oxygen 08/20/23 13:45 08/20/23 13:48 08/20/23 13:48 Temperature Pulse Rate 134 H 139 H Respiratory Rate 26 H 27 H Blood Pressure 98/71 Pulse Oximetry 96 96 Oxygen Delivery Method Oxygen Flow Rate Fraction of Inspired Oxygen 08/20/23 13:52 08/20/23 13:52 08/20/23 13:54 Temperature Pulse Rate 139 H Respiratory Rate 26 H Blood Pressure 99/82 137/75 Pulse Oximetry 96 Oxygen Delivery Method Oxygen Flow Rate Fraction of Inspired Oxygen 08/20/23 13:54 08/20/23 13:56 08/20/23 13:56 Temperature Pulse Rate 136 H 132 H Respiratory Rate 27 H 29 H Blood Pressure 102/59 L Pulse Oximetry 96 96 Oxygen Delivery Method Oxygen Flow Rate Fraction of Inspired Oxygen 08/20/23 13:58 08/20/23 13:58 08/20/23 14:00 Temperature Pulse Rate 133 H Respiratory Rate 29 H Blood Pressure 103/71 100/75 Pulse Oximetry 96 Oxygen Delivery Method Oxygen Flow Rate Fraction of Inspired Oxygen 08/20/23 14:00 08/20/23 14:02 08/20/23 14:02 Temperature Pulse Rate 134 H 140 H Respiratory Rate 39 H 33 H Blood Pressure 102/75 Pulse Oximetry 96 96 Oxygen Delivery Method Oxygen Flow Rate Fraction of Inspired Oxygen 08/20/23 14:04 08/20/23 14:04 08/20/23 14:05 Temperature Pulse Rate 134 H Respiratory Rate 26 H Blood Pressure 104/66 102/64 Pulse Oximetry 95 Oxygen Delivery Method Oxygen Flow Rate Fraction of Inspired Oxygen 30 08/20/23 14:06 08/20/23 14:06 08/20/23 14:08 Temperature Pulse Rate 136 H Respiratory Rate 28 H Blood Pressure 96/71 99/65 Pulse Oximetry 95 Oxygen Delivery Method Oxygen Flow Rate Fraction of Inspired Oxygen 08/20/23 14:08 08/20/23 14:10 08/20/23 14:10 Temperature Pulse Rate 131 H 137 H Respiratory Rate 29 H 31 H Blood Pressure 94/70 Pulse Oximetry 96 96 Oxygen Delivery Method Oxygen Flow Rate Fraction of Inspired Oxygen 08/20/23 14:33 Temperature Pulse Rate Respiratory Rate Blood Pressure Pulse Oximetry 96 Oxygen Delivery Method Nasal Cannula Oxygen Flow Rate 2 Fraction of Inspired Oxygen Fraction of Inspired Oxygen 30 Oxygen Delivery Method Nasal Cannula Oxygen Flow Rate 2 Narrative Exam Narrative: NAD, alert and oriented, fluent speech, calm. Comfortable on 2 L of oxygen. Normocephalic skull, EOMI, anicteric sclera, symmetric pupils. Oropharynx unremarkable, no droop. Neck supple, midline trachea, no adenopathy. Lungs with diminished breath sounds in the bases and mild increased rate but no laboring. Heart is irregular and tachycardic, no murmur gallop or rub. Abdomen is soft, non distended and non tender. Extremities are with bilateral pitting edema. She is multiple extremity scars on right leg below the knee and at the knee as well as a large defect in her leg which is well healed. Skin is free of rash or lesions. Joints are not swollen or deformed. Judgment appears to be normal. Objective ECG Impression: AF RVR Imaging Chest x-ray: My impression: Pulmonary edema Radiologist's impression: Same Labs 08/20/23 10:38 08/20/23 10:38 Labs: Laboratory Results - last 24 hr 08/20/23 08/20/23 10:38 12:31 WBC 9.8 RBC 3.78 L Hgb 10.5 L Hct 32.4 L MCV 85.9 MCH 27.7 MCHC 32.3 RDW 15.0 H Plt Count 421 H Neut % (Auto) 87.9 H Lymph % (Auto) 3.7 L [place] % (Auto) 5.9 Eos % (Auto) 2.0 Baso % (Auto) 0.5 Neut # (Auto) 8600 H Lymph # (Auto) 400 L [place] # (Auto) 600 Eos # (Auto) 200 Baso # (Auto) 0 PT 12.4 INR 1.1 Sodium 138 Potassium 4.5 Chloride 107 Carbon Dioxide 25 BUN 29 H Creatinine 0.63 Estimated GFR > 60 BUN/Creatinine Ratio 46.0 H Glucose 192 H Lactate 2.2 H 1.6 Calcium 9.2 Total Bilirubin 0.7 AST 25 ALT 15 Alkaline Phosphatase 69 Troponin I < 0.012 NT-Pro-B Natriuret Pep 2350 H Total Protein 7.4 Albumin 3.8 Globulin 3.6 Albumin/Globulin Ratio 1.1 Assessment & Plan Assessment & Plan narrative: 1. Pulmonary edema, present on admission and active. 2. Acute hypoxic respiratory failure, present on admission and active. 3. Atrial fibrillation with rapid response, present on admission and active. 4. COPD, present on admission and stable. 5. Mild lactic acidosis, present on admission and active. Plan: -amiodarone infusion and drip to attempt rate control, stopped diltiazem. -continue to diurese with q.12 hour Lasix IV. -trend troponins. -discontinue BiPAP, wean oxygen as able. -2D echo and rate controlled. -transitioned to oral rate control medications over the next 12 hours, specifically metoprolol. She is full resuscitation, confirmed today. Her son is her proxy decision maker. There is a 2 midnight expectation of medical necessity. She is admitted inpatient status. Time Spent With Patient Time with patient: 30 to 49 minutes with 50% spent counseling/coordinating care Quality MIPS - Admit I confirm the patient?s Advance Care Plan is present, Code status is documented, Surrogate decision maker is in patient?s record [If Yes, STOP here]: Yes [facility] - Meds 'Current medications' to include all prescriptions, [id number] products, herbals, cannabis/cannabidiol products, and vitamin/mineral/dietary (nutritional) supplements. I have utilized all available resources to obtain, update, or review the patient?s current medications. [If Yes, STOP here]: Yes
[2023-08-20] MEDS: AMIODARONE 150 MG/100 ML PIGGYBACK 600 MG IV (15:10)
[2023-08-20] MEDS: AMIODARONE 360 MG/200 ML PIGGYBACK 33.33 MG IV (15:26)
--- NOTE | 2023-08-20 15:44 | PT-IP ANOTE ---
PT eval order received. EMR reviewed. checked with nurse. Hold PT today. pt currently receiving diltiazem drip and still on afib RVR per nurse. will f/u.
[2023-08-20 15:51] LABS: Troponin I < 0.012 ng/mL (0.01-0.034)
[2023-08-20] MEDS: HEPARIN 5,000 UNIT/ML VIAL 5000 UNIT SUBCUT (16:24)
[2023-08-20] MEDS: ALBUTEROL/IPRATROPIUM 3 ML AMPUL INH (21:13)
[2023-08-20] MEDS: GABAPENTIN 300 MG CAPSULE PO (21:25)
[2023-08-20] MEDS: AMIODARONE 360 MG/200 ML PIGGYBACK 16.667 MG IV (21:25)
[2023-08-20 23:22] LABS: Troponin I < 0.012 ng/mL (0.01-0.034)
[2023-08-21] VITALS (69 sets, daily range): BP systolic 93–134; BP diastolic 57–81; PULSE 70–145; RESP 18–46; TEMP 36.5–36.9; O2SAT 88–100
[2023-08-21 05:06] LABS: Add Manual Diff / Slide Review NO; Basophils Absolute Auto 200 /uL (0-100); Basophils Percent Auto 1.2 % (0-2); Eosinophils Absolute Auto 0 /uL (0-450); Hematocrit 28.8 % (36-46); Hemoglobin 9.3 g/dL (12.0-16.0); Lymphocytes Absolute Auto 600 /uL (1100-4500); Lymphocytes Percent Auto 3.7 % (25-40); Mean Corpuscular HGB Conc 32.4 % (30-36); Mean Corpuscular Hemoglobin 27.5 PG (26-34); Mean Corpuscular Volume 85.1 fL (80-100); Monocytes Absolute Auto 1400 /uL (0-900); Monocytes Percent Auto 9.1 % (3-14); Neutrophils Absolute Auto 13200 /uL (1500-7000); Platelet Count 381 X10^3/uL (150-400); Red Blood Cell Count 3.38 X10^6/uL (4.0-5.2); Red Cell Distribution Width 14.8 % (11.6-14.8); White Blood Cell Count 15.3 X10^3/uL (4.5-11.0)
[2023-08-21 05:20] LABS: BUN Creatinine Ratio 46.4 (6-22); Blood Urea Nitrogen 26 mg/dL (7-17); Calcium 8.5 mg/dL (8.4-10.2); Carbon Dioxide 33 mmol/L (22-32); Chloride 101 mmol/L (98-107); Estimated Glomerular Filt Rate > 60 mL/min (>60); Glucose 121 mg/dL (80-110); HEMOLYSIS < 15 (0-50); Potassium 4.2 mmol/L (3.4-5.1); Sodium 136 mmol/L (137-145)
[2023-08-21] MEDS: ALBUTEROL/IPRATROPIUM 3 ML AMPUL INH ×2 (07:33→21:02)
--- NOTE | 2023-08-21 07:50 | P.PN_ITS ---
Subjective Subjective Interval history: She was in normal sinus rhythm around 8:00 a.m., but is back in atrial fib with RVR at 1:26 a.m. at about 10:00 a.m.. She does feel better. She did have some dyspnea earlier this morning. She has good urine output with her IV Lasix. Her leg edema is improved. She denies chest pain. Exam Vital Signs (past 8 hours): - 08/21/23 00:00 08/21/23 00:00 08/21/23 00:15 Temperature Pulse Rate 79 89 Respiratory Rate 34 H 35 H Blood Pressure 107/66 Pulse Oximetry 98 98 Oxygen Delivery Method Oxygen Flow Rate Fraction of Inspired Oxygen 08/21/23 00:30 08/21/23 00:30 08/21/23 00:45 Temperature Pulse Rate 86 85 Respiratory Rate 46 H 31 H Blood Pressure 115/67 Pulse Oximetry 99 99 Oxygen Delivery Method Oxygen Flow Rate Fraction of Inspired Oxygen 08/21/23 01:00 08/21/23 01:00 08/21/23 01:15 Temperature Pulse Rate 86 85 Respiratory Rate 31 H 28 H Blood Pressure 111/68 Pulse Oximetry 98 99 Oxygen Delivery Method Oxygen Flow Rate Fraction of Inspired Oxygen 08/21/23 01:30 08/21/23 01:30 08/21/23 01:45 Temperature Pulse Rate 83 96 H Respiratory Rate 30 H 30 H Blood Pressure 110/68 Pulse Oximetry 99 99 Oxygen Delivery Method Oxygen Flow Rate Fraction of Inspired Oxygen 08/21/23 02:00 08/21/23 02:00 08/21/23 02:15 Temperature Pulse Rate 74 75 Respiratory Rate 26 H 23 Blood Pressure 107/62 Pulse Oximetry 100 100 Oxygen Delivery Method Oxygen Flow Rate Fraction of Inspired Oxygen 08/21/23 02:30 08/21/23 02:30 08/21/23 02:45 Temperature Pulse Rate 82 74 Respiratory Rate 25 H 21 Blood Pressure 106/66 Pulse Oximetry 99 99 Oxygen Delivery Method Oxygen Flow Rate Fraction of Inspired Oxygen 08/21/23 03:00 08/21/23 03:00 08/21/23 03:15 Temperature Pulse Rate 72 72 Respiratory Rate 24 22 Blood Pressure 107/63 Pulse Oximetry 99 98 Oxygen Delivery Method Oxygen Flow Rate Fraction of Inspired Oxygen 08/21/23 03:30 08/21/23 03:30 08/21/23 03:45 Temperature Pulse Rate 70 88 Respiratory Rate 21 28 H Blood Pressure 98/59 L Pulse Oximetry 98 97 Oxygen Delivery Method Oxygen Flow Rate Fraction of Inspired Oxygen 08/21/23 04:00 08/21/23 04:00 08/21/23 04:00 Temperature 97.7 F Pulse Rate 86 Respiratory Rate 28 H Blood Pressure 117/63 Pulse Oximetry 97 Oxygen Delivery Method Oxygen Flow Rate Fraction of Inspired Oxygen 08/21/23 05:00 08/21/23 05:00 08/21/23 05:15 Temperature Pulse Rate 81 73 Respiratory Rate 25 H 20 Blood Pressure 117/67 Pulse Oximetry 98 98 Oxygen Delivery Method Oxygen Flow Rate Fraction of Inspired Oxygen 08/21/23 05:30 08/21/23 05:30 08/21/23 05:45 Temperature Pulse Rate 70 74 Respiratory Rate 21 21 Blood Pressure 104/64 Pulse Oximetry 98 98 Oxygen Delivery Method Oxygen Flow Rate Fraction of Inspired Oxygen 08/21/23 06:00 08/21/23 07:34 Temperature Pulse Rate 83 89 Respiratory Rate 29 H 18 Blood Pressure Pulse Oximetry 97 98 Oxygen Delivery Method Nasal Cannula Oxygen Flow Rate 2 Fraction of Inspired Oxygen 28 Fraction of Inspired Oxygen 28 SaO2/FiO2 Ratio 350 Oxygen Delivery Method Nasal Cannula Oxygen Flow Rate 2 Narrative Exam Narrative: NAD, comfortable on 3 L. Heart is irregular and tachycardic without murmur. Abdomen is nondistended Lungs are notable for basilar rales and some expiratory wheezing Legs with 1+ edema Objective Labs 08/21/23 04:10 08/21/23 04:10 Labs: Laboratory Results - last 24 hr 08/20/23 08/20/23 08/20/23 10:38 12:31 15:05 WBC 9.8 RBC 3.78 L Hgb 10.5 L Hct 32.4 L MCV 85.9 MCH 27.7 MCHC 32.3 RDW 15.0 H Plt Count 421 H Neut % (Auto) 87.9 H Lymph % (Auto) 3.[address] [place] % (Auto) 5.9 Eos % (Auto) 2.0 Baso % (Auto) 0.5 Neut # (Auto) 8600 H Lymph # (Auto) [address] [place] # (Auto) 600 Eos # (Auto) 200 Baso # (Auto) 0 PT 12.4 INR 1.1 Sodium 138 Potassium 4.5 Chloride 107 Carbon Dioxide 25 BUN 29 H Creatinine 0.63 Estimated GFR > 60 BUN/Creatinine Ratio 46.0 H Glucose 192 H Lactate 2.2 H 1.6 Calcium 9.2 Total Bilirubin 0.7 AST 25 ALT 15 Alkaline Phosphatase 69 Troponin I < 0.012 < 0.012 NT-Pro-B Natriuret Pep 2350 H Total Protein 7.4 Albumin 3.8 Globulin 3.6 Albumin/Globulin Ratio 1.1 08/20/23 08/21/23 22:40 04:10 WBC 15.3 H D RBC 3.38 L Hgb 9.3 L Hct 28.8 L MCV 85.1 MCH 27.5 MCHC 32.4 RDW 14.8 Plt Count 381 Neut % (Auto) 86.0 H Lymph % (Auto) 3.[address] [place] % (Auto) 9.1 Eos % (Auto) 0.0 L Baso % (Auto) 1.2 Neut # (Auto) 36452 H Lymph # (Auto) [address] [place] # (Auto) 1400 H Eos # (Auto) 0 Baso # (Auto) 200 H PT INR Sodium 136 L Potassium 4.2 Chloride 101 Carbon Dioxide 33 H BUN 26 H Creatinine 0.56 Estimated GFR > 60 BUN/Creatinine Ratio 46.4 H Glucose 121 H Lactate Calcium 8.5 Total Bilirubin AST ALT Alkaline Phosphatase Troponin I < 0.012 NT-Pro-B Natriuret Pep Total Protein Albumin Globulin Albumin/Globulin Ratio PFSH Medical History Paroxysmal A-fib Tibia fracture Femur fracture, right COPD (chronic obstructive pulmonary disease) Social History household members: none Smoking Status: Former smoker Assessment & Plan Assessment & Plan narrative: 1. Pulmonary edema, present on admission and active. 2. Acute hypoxic respiratory failure, present on admission and active. 3. Atrial fibrillation with rapid response, present on admission and active. 4. COPD, present on admission and stable. 5. Mild lactic acidosis, present on admission and active. Plan: -amiodarone infusion will be continued today for an additional 6 hours. Start metoprolol 25 b.i.d.. Stop diltiazem. -continue diuresis with IV Lasix. Monitor urine output. -wean oxygen as able. -2D echo and rate controlled. -out of bed. She is full resuscitation, confirmed today. Her son is her proxy decision maker. There is a 2 midnight expectation of medical necessity. She is admitted inpatient status. Quality VTE Deep Vein Thrombosis/Pulmonary Embolism Present on Admission: No
[2023-08-21] MEDS: AMIODARONE 360 MG/200 ML PIGGYBACK 16.667 MG IV (08:38)
[2023-08-21] MEDS: FUROSEMIDE 40 MG/4 ML VIAL IV ×2 (08:50→19:29)
[2023-08-21] MEDS: METOPROLOL ER 25 MG TABLET PO (08:51)
[2023-08-21] MEDS: PANTOPRAZOLE DR 20 MG TABLET PO (08:52)
[2023-08-21] MEDS: HEPARIN 5,000 UNIT/ML VIAL 5000 UNIT SUBCUT ×2 (08:52→20:42)
[2023-08-21] MEDS: AMIODARONE 360 MG/200 ML PIGGYBACK 16.7 MG IV (09:07)
--- NOTE | 2023-08-21 11:57 | PT.IIE ---
Current Diagnoses Heart failure, unspecified (08/20/23) Medical History (Last Reviewed 08/20/23 @ 15:09 by Kevin Angela MD) COPD (chronic obstructive pulmonary disease) Femur fracture, right Paroxysmal A-fib Tibia fracture Physical Therapy Inpatient Evaluation/Re-Eval M1 PT/OT-IP Prior Functional Status Start: 08/21/23 08:26 Freq: NEEDED Status: Active Protocol: Document 08/21/23 11:02 MB (Rec: 08/21/23 11:57 MB [id number]) Medical Review Prior Functional Status Medical History Reviewed Yes Diet/Fluid Consistency Regular Communication WNLs Mobility and Gait Pt used rollator or SBQC in her home Activities of Daily Living and IADL's Pt took sink bath standing most days and got into her walk-in shower that has a lip to get into once a week. Neighbor did driving and shopping. Social History Household Members none Living Arrangements Mobile home Number of Floors (Floors) One Floor Number of Stairs To Enter/Railing? 5-6 steps with rail to enter ( one door has left rail and one door has right rail) Home Environment High Toilet,Walk in Shower Home Equipment Four Wheel Walker,Quad Cane, Shower Seat without Backrest, Hand Held Shower,Grab Bars In Shower Employment Status Retired Additional Social History Comment Pt states that she has a standard walker at her toilet that she uses to push up from to stand up from from toilet Previous intermittent 2L O2 use M2 PT-IP Current Condition Start: 08/21/23 08:26 Freq: NEEDED Status: Active Protocol: Document 08/21/23 11:02 MB (Rec: 08/21/23 11:57 MB [id number]) Physical Therapy Current Condition Current Condition Evaluation Date 08/21/23 Treatment Diagnosis Weakness, COPD, LE edema, hypoxia M3 PT-IP Subjective Start: 08/21/23 08:26 Freq: NEEDED Status: Active Protocol: Document 08/21/23 11:02 MB (Rec: 08/21/23 11:57 MB [id number]) Subjective Physical Therapy Visit Type Type Initial Evaluation Visit Start Time 11:02 Visit Stop Time 11:28 Number of GOLF COURSE ASSISTANT Visits 0 Physical Therapy Visit Comments Patient Comments Pt states she was almost asleep from hearing musician play the piano to her in the room. Therapy Pain Assessment Pain When Pain Assessed During Mobility Pain Present Pain Present Pain Reported Location Shoulders Intensity 5 Scale Used Linder-Courtney (Faces) Description Chronic Pain Behaviors Facial Grimacing,Guarding Pain Management Techniques Distraction,Modification of Treatment,Re-positioning M4 PT-IP Mobility and Gait Start: 08/21/23 08:26 Freq: NEEDED Status: Active Protocol: Document 08/21/23 11:02 MB (Rec: 08/21/23 11:57 MB [id number]) PT-Bed Mobility Assessment Supine to Sit Supine to Sit Contact Guard Assistance,1 Person Assistance,Head of Bed Elevated,Bedrails Sit to Supine Sit to Supine Contact Guard Assistance,1 Person Assistance,Head of Bed Elevated,Bedrails Scooting Scooting to Edge of Bed Contact Guard Assistance Scooting Up and Down in Bed Contact Guard Assistance PT-Transfer Assessment Sit to and From Stand Sit to and from Stand Minimal Assistance,1 Person Assistance,Use of Upper Extremities Equipment Transfer Assistive Device Front Wheeled Walker Orthotic/Prosthetic Devices or Brace: No Transfers Transfer Destination Chair Transfer Technique Side stepping to head of bed Transfer Ability Level of Assist Minimal Assistance,1 Person Assistance,Use of Upper Extremities Comments Mobility Comments Increased time for bed mobility and pt reports B shoulder pain from chronic changes. She reaches to lower rung of RW to push with hands to stand up and PT blocks the walker. Pt states that she cannot push up from the bed to stand d/t shoulder discomfort . PT blocks walker and pt puts feet on lower outside rung of RW to scoot back up into the bed: bed at lowest height is too tall for pt Gait Assessment Gait Gait Assistance Required: Minimum Assistance,1 Person Assist Distance (Feet) 2 Able to Maintain Weight Bearing Status Yes During Gait Assistive Devices Assistive Device Front Wheeled Walker Orthotic/Prosthetic Devices or Brace: No Gait Deviations General Gait Pattern Decreased Stride Length, Decreased Feet Clearance, Flexed Trunk,Step-to Gait,Wide Based Gait Factors Limiting Gait Function Factors Limiting Gait Function Decreased Activity Tolerance, Decreased Strength,Difficulty Following Directions,Limited Range of Motion,Pain,Poor Balance,Poor Safety Awareness Comments Gait Comments Pt takes several right side steps and PT manages many lines. Pt is on 3LO2 and her O2 sats are in the 90s at rest and pulse-ox does not stay on finger with mobility and so doffed. Pt is tachycardic with monitor reading a-fib at times with HR 120s at rest and up to 144 BPM with mobility. PT-Balance Assessment Sitting Balance and Reactions Static Sitting Balance Ability Good Dynamic Sitting Balance Ability Good Standing Balance and Reactions Static Standing Balance Ability Fair Dynamic Standing Balance Ability Fair Device Used RW M5 PT-IP Objective Assessments Start: 08/21/23 08:26 Freq: NEEDED Status: Active Protocol: Document 08/21/23 11:02 MB (Rec: 08/21/23 11:57 MB [id number]) Orientation Orientation/Cognition Level of Alertness Alert Orientation Name,Age,Birthday,Month,Place, Situation Language Function Ability No Deficits Noted Safety Awareness Decreased Safety Awareness Memory Description No Deficits Noted Gross Range of Motion Upper Extremity ROM Assessment Bilaterally Impaired Impairments Pt reports B shoulder issues Lower Extremity ROM Assessment Within Functional Limits Impairments Mild toe and ankle changes, dressing on right heel, graft site anterior right guardado, B LE edema Strength Upper Extremity Strength Assessment Bilaterally Impaired Lower Extremity Strength Assessment Within Functional Limits M6 PT-IP Treatment Start: 08/21/23 08:26 Freq: NEEDED Status: Active Protocol: Document 08/21/23 11:02 MB (Rec: 08/21/23 11:57 MB [id number]) Physical Therapy Treatment Education Education Provided Safety M7 PT-IP Assessment and Plan Start: 08/21/23 08:26 Freq: NEEDED Status: Active Protocol: Document 08/21/23 11:02 MB (Rec: 08/21/23 11:57 MB [id number]) PT Summary Assessment and Plan Potential Rehabilitation Potential Good Status of Condition at Evaluation Unstable Summary Impairments Pain,ROM,Strength,Balance,Bed Mobility,Transfers,Gait, Activity Tolerance Progress Towards Goals Progressing Toward Goals,Slow Progress due to Medical Issues ,Slow Progress due to Activity Tolerance Assessment Summary Pt is a pleasant 83 y/o female presenting with tachycardia, increased RR, requirements of O2 and decreased activity tolerance on assessment today. She has chronic B shoulder pain that makes moving in the tall bed that has air mattress pressure changes challenging. Pt lives at home alone and has support of a friend/ neighbor. She will benefit from ongoing acute and post- acute PT to maximize functional mobility and I. Goals Bed Mobility Goal Independent Transfer Goal Independent,Four Wheeled Walker Gait Goal Independent,Four Wheel Walker Gait Distance 50 Other Goals Pt will ascend and descend 5-6 steps with use of rail to allow safe home entrance. Days to Meet Goals 5 Frequency of Treatment Frequency Of Treatment Once a Day Treatment Plan Physical Therapy Treatment Plan Bed Mobility Training,Transfer Training,Gait Training, Therapeutic Exercise,Balance Retraining,Discharge Planning, Hot or Cold Pack,Neuromuscular Re-ed,Coordination Retraining ,Manual Therapy Weight Bearing Status Weight Bearing Status Weight Bear as Tolerated Recommendations To Nursing Amount of Assist Needed 2 Person Assist Discharge Recommendations PT Discharge Recommendations Home with 18/11 Assist Available,Home vs SNF Transportation Needs at Discharge Private Vehicle
--- NOTE | 2023-08-21 12:06 | CM.DANOTE ---
Initial DCP Assessment Note Pt is a 83 yo female, lives in a senior mobile home park in [place], admitted for management of afib, pulmonary edema, acute hypoxic resp failure, COPD PCP: Hansel Hanna Payer: [facility] Reviewed chart, pt discussed in multidisciplinary rounds this morning. Patient's rate stabilized overnight, she will be transitioned to po and will likely be discharged home tomorrow. Met w/patient to introduce self and role. Patient reports she lives [place] a [place] mobile [place] park and has a very supportive friend and neighbor, Greg who assists her as needed. Greg drives patient as needed. Patient reports being indp in all ADLs except driving. Patient has a son, Bob, who lives in [place] and will be visitin the end of this week. Son Houston and his family live in [place] and hope to visit soon. Patient expects to return home w/assist from her friends and family; unsure she will need HH. Later review of therapy note indicates patient will benefit from home w/assist and HH referral; will plan to discuss with patient. CM team will plan to follow closely. IVON Brown Discharge Planning/Care Management CM Discharge Assessment Start: 08/21/23 12:01 Freq: Status: Active Protocol: Document 08/21/23 12:01 KARI (Rec: 08/21/23 12:06 [email or web address] [id number]) Discharge Planning Assessment Assigned Roller Print Tender IVON [place] DPOA/Assigned Designee Name edgar Lopez (Anastasiya) Contact Information [phone] cell [phone] home Advance Directives? Yes Advance Directives on File No History Provided By Patient,Medical Record Prior Living Arrangements Mobile home Household Members none Type of transporation used prior to Relies on Others admit Independent with ADL's Yes Is patient alert and oriented? Yes Patient/Family Preference Home with Home Health Barriers to Discharge No Comment None identified at this time Discharge Plan Home Transportation Arrangement Friends or family Additional Comment TBD
[2023-08-21] MEDS: AMIODARONE 200 MG TABLET 400 MG PO ×2 (14:39→19:29)
[2023-08-21] MEDS: CALCIUM CARBONATE 500 MG TAB 1000 MG PO (17:13)
[2023-08-21] MEDS: GABAPENTIN 300 MG CAPSULE PO (20:42)
[2023-08-21] MEDS: METOPROLOL TARTRATE 5 MG/5 ML INJ IV (22:15)
[2023-08-22] VITALS (38 sets, daily range): BP systolic 73–112; BP diastolic 53–73; PULSE 104–127; RESP 22–46; TEMP 36.3–37.7; O2SAT 93–98
[2023-08-22 05:27] LABS: Add Manual Diff / Slide Review NO; Basophils Absolute Auto 200 /uL (0-100); Basophils Percent Auto 1.7 % (0-2); Eosinophils Absolute Auto 100 /uL (0-450); Eosinophils Percent Auto 0.6 % (2-4); Hematocrit 30.4 % (36-46); Hemoglobin 9.9 g/dL (12.0-16.0); Lymphocytes Absolute Auto 600 /uL (1100-4500); Lymphocytes Percent Auto 4.9 % (25-40); Mean Corpuscular HGB Conc 32.4 % (30-36); Mean Corpuscular Hemoglobin 27.3 PG (26-34); Mean Corpuscular Volume 84.3 fL (80-100); Monocytes Absolute Auto 1300 /uL (0-900); Monocytes Percent Auto 10.7 % (3-14); Neutrophils Absolute Auto 10000 /uL (1500-7000); Neutrophils Percent Auto 82.1 % (50-75); Platelet Count 370 X10^3/uL (150-400); Red Blood Cell Count 3.61 X10^6/uL (4.0-5.2); Red Cell Distribution Width 14.7 % (11.6-14.8); White Blood Cell Count 12.2 X10^3/uL (4.5-11.0)
[2023-08-22 05:29] LABS: BUN Creatinine Ratio 37.3 (6-22); Blood Urea Nitrogen 28 mg/dL (7-17); Calcium 8.5 mg/dL (8.4-10.2); Carbon Dioxide 35 mmol/L (22-32); Chloride 95 mmol/L (98-107); Estimated Glomerular Filt Rate > 60 mL/min (>60); Glucose 111 mg/dL (80-110); HEMOLYSIS < 15 (0-50); Potassium 3.8 mmol/L (3.4-5.1); Sodium 135 mmol/L (137-145)
[2023-08-22] MEDS: PANTOPRAZOLE DR 20 MG TABLET PO (07:10)
--- NOTE | 2023-08-22 07:37 | PM.PN.1 ---
Subjective Subjective Interval history: She feels a little bit better with regard to her breathing. She denies any chest pain. Echo revealed an EF of 30-35%. She was in normal sinus for short time in the morning of August 20 but has reverted to atrial fibrillation with ongoing issues with rate control. Exam Vital Signs (past 8 hours): - 08/22/23 00:00 08/22/23 00:00 08/22/23 01:00 Temperature 97.4 F L Pulse Rate 115 H 115 H Respiratory Rate 24 27 H Blood Pressure 96/64 Pulse Oximetry 93 94 Oxygen Flow Rate 3 08/22/23 01:00 08/22/23 02:00 08/22/23 02:00 Temperature Pulse Rate 118 H Respiratory Rate 22 Blood Pressure 101/60 99/61 Pulse Oximetry 94 Oxygen Flow Rate 3 08/22/23 03:00 08/22/23 03:00 08/22/23 03:04 Temperature Pulse Rate 117 H 119 H Respiratory Rate 26 H 26 H Blood Pressure 84/53 L Pulse Oximetry 93 94 Oxygen Flow Rate 08/22/23 03:04 08/22/23 04:00 08/22/23 04:00 Temperature 97.3 F L Pulse Rate 114 H Respiratory Rate 25 H Blood Pressure 96/66 96/58 L Pulse Oximetry 95 Oxygen Flow Rate 3 08/22/23 05:00 08/22/23 05:00 08/22/23 05:05 Temperature Pulse Rate 112 H 117 H Respiratory Rate 24 30 H Blood Pressure 87/58 L Pulse Oximetry 93 94 Oxygen Flow Rate 3 3 08/22/23 05:05 08/22/23 06:00 08/22/23 06:00 Temperature Pulse Rate 117 H Respiratory Rate 24 Blood Pressure 85/60 L 73/55 L Pulse Oximetry 93 Oxygen Flow Rate 08/22/23 06:02 08/22/23 06:02 Temperature Pulse Rate 119 H Respiratory Rate 22 Blood Pressure 95/61 Pulse Oximetry 93 Oxygen Flow Rate 3 Fraction of Inspired Oxygen 28 SaO2/FiO2 Ratio 350 Oxygen Delivery Method Nasal Cannula Oxygen Flow Rate 3 Narrative Exam Narrative: NAD, alert and oriented. Fluent speech. Lungs are clear, normal rate and effort. Heart is irregular, no murmur gallop or rub. Mild tachycardia. Abdomen is soft, non distended. Extremities are free of edema. Objective Labs 08/22/23 04:05 08/22/23 04:05 Labs: Laboratory Results - last 24 hr 08/22/23 04:05 WBC 12.2 H RBC 3.61 L Hgb 9.9 L Hct 30.4 L MCV 84.3 MCH 27.3 MCHC 32.4 RDW 14.7 Plt Count 370 Neut % (Auto) 82.1 H Lymph % (Auto) 4.9 L [place] % (Auto) 10.7 Eos % (Auto) 0.6 L Baso % (Auto) 1.7 Neut # (Auto) 47513 H Lymph # (Auto) 600 L [place] # (Auto) 1300 H Eos # (Auto) 100 Baso # (Auto) 200 H Sodium 135 L Potassium 3.8 Chloride 95 L Carbon Dioxide 35 H BUN 28 H Creatinine 0.75 Estimated GFR > 60 BUN/Creatinine Ratio 37.3 H Glucose 111 H Calcium 8.5 PFSH Medical History Paroxysmal A-fib Tibia fracture Femur fracture, right COPD (chronic obstructive pulmonary disease) Social History household members: none Smoking Status: Former smoker Assessment & Plan Assessment & Plan narrative: 1. Pulmonary edema, present on admission and improving. 2. Acute hypoxic respiratory failure, present on admission and improving. 3. Atrial fibrillation with rapid response, present on admission and active. 4. COPD, present on admission and stable. 5. Mild lactic acidosis, present on admission and improved. 6. Acute systolic heart failure, present on admission and active. Plan: -amiodarone infusion was discontinued 08/20 and PO was started. Started metoprolol 25 b.i.d.. Stopped diltiazem. -continue diuresis with IV Lasix. Monitor urine output. -wean oxygen as able. -out of bed. -increase PO Metoprolol XL to 25 BID. She is full resuscitation, confirmed today. Her son is her proxy decision maker. Quality VTE Deep Vein Thrombosis/Pulmonary Embolism Present on Admission: No
[2023-08-22] MEDS: AMIODARONE 200 MG TABLET 400 MG PO ×2 (08:05→16:05)
[2023-08-22] MEDS: FUROSEMIDE 40 MG/4 ML VIAL IV ×2 (08:06→18:19)
[2023-08-22] MEDS: HEPARIN 5,000 UNIT/ML VIAL 5000 UNIT SUBCUT ×2 (08:08→21:04)
[2023-08-22] MEDS: METOPROLOL ER 25 MG TABLET PO (08:18)
[2023-08-22] MEDS: ALBUTEROL/IPRATROPIUM 3 ML AMPUL INH ×2 (10:02→19:30)
[2023-08-22] MEDS: METOPROLOL TARTRATE 5 MG/5 ML INJ IV ×2 (10:23→21:03)
--- NOTE | 2023-08-22 11:40 | PT.IPTN ---
Current Diagnoses Heart failure, unspecified (08/20/23) Physical Therapy Treatment Note M2 PT-IP Current Condition Start: 08/21/23 08:26 Freq: NEEDED Status: Active Protocol: Document 08/21/23 11:02 MB (Rec: 08/21/23 11:57 MB [id number]) Physical Therapy Current Condition Current Condition Evaluation Date 08/21/23 Treatment Diagnosis Weakness, COPD, LE edema, hypoxia M3 PT-IP Subjective Start: 08/21/23 08:26 Freq: NEEDED Status: Active Protocol: Document 08/22/23 12:17 TS (Rec: 08/22/23 12:40 TS [id number]) Subjective Physical Therapy Visit Type Type Progress Note Visit Start Time 11:40 Visit Stop Time 12:07 Notes pt on 3L's o2, Spo2 96%. Number of FORESTRY BIOLOGY SPECIALIST Visits 1 Physical Therapy Visit Comments Patient Comments Pt found resting in bed, would like to get up to brush teeth . She refused SNF and would like to go home with her neighbor and son who will be visiting her for 2 weeks. Pt is agreeable to PT. M4 PT-IP Mobility and Gait Start: 08/21/23 08:26 Freq: NEEDED Status: Active Protocol: Document 08/22/23 12:17 TS (Rec: 08/22/23 12:40 TS [id number]) PT-Bed Mobility Assessment Supine to Sit Supine to Sit Contact Guard Assistance,1 Person Assistance,Head of Bed Elevated,Bedrails Scooting Scooting to Edge of Bed Minimal Assistance PT-Transfer Assessment Sit to and From Stand Sit to and from Stand Contact Guard Assistance,1 Person Assistance,Use of Upper Extremities Equipment Transfer Assistive Device Gait Belt,Front Wheeled Walker Orthotic/Prosthetic Devices or Brace: No Comments Mobility Comments Supine to sit HOB elevated 40D CGA, pt required cues for sequecning. STS from bed with FWW CGA, pt had good standing balance with no retroleaning. She ambulated to sink, brushed teeth CGA/SBA with counter support. She ambulated to chair with FWW with slow gait, pt denied any lightheadedness . Pt was left in chair, all needs met. Gait Assessment Gait Gait Assistance Required: Standby Assistance,Contact Guard Assist,1 Person Assist Distance (Feet) 15 Able to Maintain Weight Bearing Status Yes During Gait Assistive Devices Assistive Device Front Wheeled Walker Orthotic/Prosthetic Devices or Brace: No Gait Deviations General Gait Pattern Decreased Stride Length, Decreased Feet Clearance, Flexed Trunk,Step-to Gait,Wide Based Gait Factors Limiting Gait Function Factors Limiting Gait Function Decreased Activity Tolerance, Decreased Strength,Difficulty Following Directions,Limited Range of Motion,Pain,Poor Balance,Poor Safety Awareness Comments Gait Comments See mobility comments PT-Balance Assessment Sitting Balance and Reactions Static Sitting Balance Ability Good Dynamic Sitting Balance Ability Good Standing Balance and Reactions Static Standing Balance Ability Fair Dynamic Standing Balance Ability Fair Device Used RW M5 PT-IP Objective Assessments Start: 08/21/23 08:26 Freq: NEEDED Status: Active Protocol: Document 08/21/23 11:02 MB (Rec: 08/21/23 11:57 MB [id number]) Orientation Orientation/Cognition Level of Alertness Alert Orientation Name,Age,Birthday,Month,Place, Situation Language Function Ability No Deficits Noted Safety Awareness Decreased Safety Awareness Memory Description No Deficits Noted Gross Range of Motion Upper Extremity ROM Assessment Bilaterally Impaired Impairments Pt reports B shoulder issues Lower Extremity ROM Assessment Within Functional Limits Impairments Mild toe and ankle changes, dressing on right heel, graft site anterior right guardado, B LE edema Strength Upper Extremity Strength Assessment Bilaterally Impaired Lower Extremity Strength Assessment Within Functional Limits M6 PT-IP Treatment Start: 08/21/23 08:26 Freq: NEEDED Status: Active Protocol: Document 08/22/23 12:17 TS (Rec: 08/22/23 12:40 [id number]) Physical Therapy Treatment Education Education Provided Safety M7 PT-IP Assessment and Plan Start: 08/21/23 08:26 Freq: NEEDED Status: Active Protocol: Document 08/22/23 12:17 TS (Rec: 08/22/23 12:40 TS [id number]) PT Summary Assessment and Plan Potential Rehabilitation Potential Good Summary Impairments Pain,ROM,Strength,Balance,Bed Mobility,Transfers,Gait, Activity Tolerance Progress Towards Goals Progressing Toward Goals Assessment Summary Krys is making some progress with her mobility. She required CGA/Harvey for bed mobility and HOB elevated. She performed STS with FWW CGA with good standing balance. She progressed her gait to ~15 'CGA/SBA with FWW, had no LOB or buckling. PT continues to recommend home 18/11 vs SNF at this time. Pt refused SNF and would like to go home with son and neighbor supporting her. Goals Bed Mobility Goal Independent Transfer Goal Independent,Four Wheeled Walker Gait Goal Independent,Four Wheel Walker Gait Distance 50 Other Goals Pt will ascend and descend 5-6 steps with use of rail to allow safe home entrance. Days to Meet Goals 5 Frequency of Treatment Frequency Of Treatment Once a Day Treatment Plan Physical Therapy Treatment Plan Bed Mobility Training,Transfer Training,Gait Training, Therapeutic Exercise,Balance Retraining,Discharge Planning, Hot or Cold Pack,Neuromuscular Re-ed,Coordination Retraining ,Manual Therapy Weight Bearing Status Weight Bearing Status Weight Bear as Tolerated Recommendations To Nursing Amount of Assist Needed 1 Person Assist Discharge Recommendations PT Discharge Recommendations Home with 18/11 Assist Available,Home vs SNF Transportation Needs at Discharge Private Vehicle,Wheelchair/ Cabulance
--- NOTE | 2023-08-22 12:01 | CM.DPNOTE ---
DCP Cont Reviewed chart. Patient discussed in multidisciplinary rounds. Patient is improving and expected to discharge home Friday. Discharge home w/family anticipated w/close outpatient follow up. Will plan to discuss HH services with patient. CM team following closely JW
[2023-08-22] MEDS: GABAPENTIN 300 MG CAPSULE PO (21:04)
[2023-08-23] VITALS (28 sets, daily range): BP systolic 83–113; BP diastolic 54–67; PULSE 90–133; RESP 16–34; TEMP 36.7–37.2; O2SAT 85–97
[2023-08-23 05:08] LABS: Add Manual Diff / Slide Review NO; Basophils Absolute Auto 100 /uL (0-100); Basophils Percent Auto 0.9 % (0-2); Eosinophils Absolute Auto 100 /uL (0-450); Eosinophils Percent Auto 0.8 % (2-4); Hematocrit 31.7 % (36-46); Hemoglobin 10.1 g/dL (12.0-16.0); Lymphocytes Absolute Auto 500 /uL (1100-4500); Lymphocytes Percent Auto 4.8 % (25-40); Mean Corpuscular HGB Conc 31.9 % (30-36); Mean Corpuscular Hemoglobin 26.8 PG (26-34); Mean Corpuscular Volume 83.9 fL (80-100); Monocytes Absolute Auto 1200 /uL (0-900); Monocytes Percent Auto 10.9 % (3-14); Neutrophils Absolute Auto 9400 /uL (1500-7000); Neutrophils Percent Auto 82.6 % (50-75); Platelet Count 382 X10^3/uL (150-400); Red Blood Cell Count 3.77 X10^6/uL (4.0-5.2); Red Cell Distribution Width 14.9 % (11.6-14.8); White Blood Cell Count 11.4 X10^3/uL (4.5-11.0)
[2023-08-23 05:18] LABS: BUN Creatinine Ratio 37.8 (6-22); Blood Urea Nitrogen 31 mg/dL (7-17); Calcium 8.4 mg/dL (8.4-10.2); Carbon Dioxide 38 mmol/L (22-32); Chloride 93 mmol/L (98-107); Estimated Glomerular Filt Rate > 60 mL/min (>60); Glucose 122 mg/dL (80-110); HEMOLYSIS < 15 (0-50); Potassium 3.7 mmol/L (3.4-5.1); Sodium 135 mmol/L (137-145)
[2023-08-23] MEDS: PANTOPRAZOLE DR 20 MG TABLET PO (06:05)
[2023-08-23] MEDS: ALBUTEROL/IPRATROPIUM 3 ML AMPUL INH ×2 (07:49→20:45)
--- NOTE | 2023-08-23 07:52 | P.PN_ITS ---
Subjective Subjective Interval history: She feels a little bit better than yesterday. Less dyspneic. Sats are 94% on 1-2 L. She has having a cough productive of dark sputum which is brownish in color. No chest pain or palpitations. Less leg edema. She is little more tachycardic at 120 bpm this morning. Exam Vital Signs (past 8 hours): - 08/23/23 00:00 08/23/23 04:00 Temperature 98.4 F 98.5 F Pulse Rate 113 H 110 H Respiratory Rate 24 23 Blood Pressure 95/62 96/54 L Pulse Oximetry 96 94 Oxygen Flow Rate 2 2 Fraction of Inspired Oxygen 28 SaO2/FiO2 Ratio 350 Oxygen Delivery Method Nasal Cannula Oxygen Flow Rate 2 Narrative Exam Narrative: NAD, alert and oriented. Fluent speech. Lungs are clear, normal rate and effort. Heart is irregular, no murmur gallop or rub. Tachy @ 120 Abdomen is soft, non distended. Extremities are free of edema. Objective Labs 08/23/23 04:25 08/23/23 04:25 Labs: Laboratory Results - last 24 hr 08/23/23 04:25 WBC 11.4 H RBC 3.77 L Hgb 10.1 L Hct 31.7 L MCV 83.9 MCH 26.8 MCHC 31.9 RDW 14.9 H Plt Count 382 Neut % (Auto) 82.6 H Lymph % (Auto) 4.8 L [place] % (Auto) 10.9 Eos % (Auto) 0.8 L Baso % (Auto) 0.9 Neut # (Auto) 9400 H Lymph # (Auto) 500 L [place] # (Auto) 1200 H Eos # (Auto) 100 Baso # (Auto) 100 Sodium 135 L Potassium 3.7 Chloride 93 L Carbon Dioxide 38 H BUN 31 H Creatinine 0.82 Estimated GFR > 60 BUN/Creatinine Ratio 37.8 H Glucose 122 H Calcium 8.4 PFSH Medical History Paroxysmal A-fib Tibia fracture Femur fracture, right COPD (chronic obstructive pulmonary disease) Social History household members: none Smoking Status: Former smoker Assessment & Plan Assessment & Plan narrative: 1. Pulmonary edema, present on admission and improving. 2. Acute hypoxic respiratory failure, present on admission and improving. 3. Atrial fibrillation with rapid response, present on admission and active. 4. COPD, present on admission and stable. 5. Mild lactic acidosis, present on admission and improved. 6. Acute systolic heart failure, present on admission and active. Plan: -amiodarone infusion was discontinued 08/20 and PO was started. Started metoprolol 25 b.i.d. Increase Metoprolol to 50 BID. Add Digoxin 250 PO. -continue diuresis with IV Lasix. Monitor urine output. -wean oxygen as able. -out of bed. -Add Apixiban BID, stop SQ Heparin. Home in 2 days. PT eval. Quality VTE Deep Vein Thrombosis/Pulmonary Embolism Present on Admission: No
[2023-08-23] MEDS: FUROSEMIDE 40 MG/4 ML VIAL IV ×2 (08:11→18:21)
[2023-08-23] MEDS: AMIODARONE 200 MG TABLET 400 MG PO ×2 (08:34→17:28)
[2023-08-23] MEDS: METOPROLOL ER 50 MG TABLET PO ×2 (08:34→21:04)
[2023-08-23] MEDS: APIXABAN 5 MG TABLET PO (08:34)
--- NOTE | 2023-08-23 11:20 | PT.IPTN ---
Current Diagnoses Heart failure, unspecified (08/20/23) Physical Therapy Treatment Note M2 PT-IP Current Condition Start: 08/21/23 08:26 Freq: NEEDED Status: Active Protocol: Document 08/21/23 11:02 MB (Rec: 08/21/23 11:57 MB [id number]) Physical Therapy Current Condition Current Condition Evaluation Date 08/21/23 Treatment Diagnosis Weakness, COPD, LE edema, hypoxia M3 PT-IP Subjective Start: 08/21/23 08:26 Freq: NEEDED Status: Active Protocol: Document 08/23/23 11:58 TS (Rec: 08/23/23 12:06 TS [id number]) Subjective Physical Therapy Visit Type Type Progress Note Visit Start Time 11:20 Visit Stop Time 11:50 Notes HR 128, Spo2 95% on 2.5L, BP supine 86/62, 113/67 sitting, 99/61 standing. Number of BLENDING KETTLE TENDER Visits 2 Physical Therapy Visit Comments Patient Comments Pt found resting in bed, is agreeable to PT. M4 PT-IP Mobility and Gait Start: 08/21/23 08:26 Freq: NEEDED Status: Active Protocol: Document 08/23/23 11:58 TS (Rec: 08/23/23 12:06 TS [id number]) PT-Bed Mobility Assessment Supine to Sit Supine to Sit Contact Guard Assistance,1 Person Assistance,Head of Bed Elevated,Bedrails Scooting Scooting to Edge of Bed Minimal Assistance PT-Transfer Assessment Sit to and From Stand Sit to and from Stand Contact Guard Assistance,1 Person Assistance,Use of Upper Extremities Equipment Transfer Assistive Device Gait Belt,Front Wheeled Walker Orthotic/Prosthetic Devices or Brace: No Comments Mobility Comments BP in supine 86/62. Supine to sit HOB elevated CGA. She required Harvey for scooting to EOB. BP in sitting 113/67. STS from bed CGA with FWW, BP in standing 99/61. Pt ambulated ~ 100'SBA/CGA with FWW, reported some SOB on 3L of o2, increased to 4L's with ambulation, denied any dizziness or lightheadedness. pt ambulated back to room, Spo2 98% on 4L's. Pt was left in chair on 2L of o2 at rest, RN notified. Gait Assessment Gait Gait Assistance Required: Standby Assistance,Contact Guard Assist,1 Person Assist Distance (Feet) 100 Able to Maintain Weight Bearing Status Yes During Gait Assistive Devices Assistive Device Front Wheeled Walker Orthotic/Prosthetic Devices or Brace: No Gait Deviations General Gait Pattern Decreased Stride Length, Decreased Feet Clearance, Flexed Trunk,Step-to Gait,Wide Based Gait Factors Limiting Gait Function Factors Limiting Gait Function Decreased Activity Tolerance, Decreased Strength,Difficulty Following Directions,Limited Range of Motion,Pain,Poor Balance,Poor Safety Awareness Comments Gait Comments See mobility comments PT-Balance Assessment Sitting Balance and Reactions Static Sitting Balance Ability Good Dynamic Sitting Balance Ability Good Standing Balance and Reactions Static Standing Balance Ability Fair Dynamic Standing Balance Ability Fair Device Used RW M5 PT-IP Objective Assessments Start: 08/21/23 08:26 Freq: NEEDED Status: Active Protocol: Document 08/21/23 11:02 MB (Rec: 08/21/23 11:57 MB [id number]) Orientation Orientation/Cognition Level of Alertness Alert Orientation Name,Age,Birthday,Month,Place, Situation Language Function Ability No Deficits Noted Safety Awareness Decreased Safety Awareness Memory Description No Deficits Noted Gross Range of Motion Upper Extremity ROM Assessment Bilaterally Impaired Impairments Pt reports B shoulder issues Lower Extremity ROM Assessment Within Functional Limits Impairments Mild toe and ankle changes, dressing on right heel, graft site anterior right guardado, B LE edema Strength Upper Extremity Strength Assessment Bilaterally Impaired Lower Extremity Strength Assessment Within Functional Limits M6 PT-IP Treatment Start: 08/21/23 08:26 Freq: NEEDED Status: Active Protocol: Document 08/23/23 11:58 TS (Rec: 08/23/23 12:06 [id number]) Physical Therapy Treatment Education Education Provided Safety M7 PT-IP Assessment and Plan Start: 08/21/23 08:26 Freq: NEEDED Status: Active Protocol: Document 08/23/23 11:58 TS (Rec: 08/23/23 12:06 [id number]) PT Summary Assessment and Plan Potential Rehabilitation Potential Good Summary Impairments Pain,ROM,Strength,Balance,Bed Mobility,Transfers,Gait, Activity Tolerance Progress Towards Goals Progressing Toward Goals Assessment Summary Krys continues to make progress with her mobility. She is CGA for bed mobility and does not require cues for sequencing. She progressed her gait to ~100'SBA/CGA with FWW . She had some SOB on 3L's of o2 with gait, increased to 4L' s, Spo2 98%. Her BP decreased in standing(see vitals above) she did not have any lightheadedness or dizziness. PT is recommending pt return home with 24/7 assist and HHPT . Goals Bed Mobility Goal Independent Transfer Goal Independent,Four Wheeled Walker Gait Goal Independent,Four Wheel Walker Gait Distance 50 Other Goals Pt will ascend and descend 5-6 steps with use of rail to allow safe home entrance. Days to Meet Goals 5 Frequency of Treatment Frequency Of Treatment Once a Day Treatment Plan Physical Therapy Treatment Plan Bed Mobility Training,Transfer Training,Gait Training, Therapeutic Exercise,Balance Retraining,Discharge Planning, Hot or Cold Pack,Neuromuscular Re-ed,Coordination Retraining ,Manual Therapy Weight Bearing Status Weight Bearing Status Weight Bear as Tolerated Recommendations To Nursing Amount of Assist Needed 1 Person Assist Discharge Recommendations PT Discharge Recommendations Home with 24/7 Assist Available,Home Health Transportation Needs at Discharge Private Vehicle
[2023-08-23] MEDS: DIGOXIN 0.125 MG TABLET 0.25 MG PO (11:36)
--- NOTE | 2023-08-23 14:17 | CM.DPNOTE ---
DCP Cont Reviewed chart. Patient discussed in multidisciplinary rounds. rate control challenging, patient may need to be considered for transfer for [facility] depending on next 24-48 hrs. If patient remains admitted at , anticipate discharge home w/family, discuss need for HH services closer to [place]. KARI
--- NOTE | 2023-08-23 15:19 | PC.NURSE ---
pt up in chair x2hrs. BSC to void. sponge bath done
[2023-08-23] MEDS: GABAPENTIN 300 MG CAPSULE PO (21:04)
[2023-08-23] MEDS: APIXABAN 5 MG TABLET 2.5 MG PO (21:04)
[2023-08-24] VITALS (25 sets, daily range): BP systolic 82–107; BP diastolic 51–75; PULSE 86–115; RESP 16–21; TEMP 36.5–37; O2SAT 78–97
[2023-08-24] MEDS: FUROSEMIDE 40 MG/4 ML VIAL IV ×2 (06:35→18:02)
[2023-08-24] MEDS: PANTOPRAZOLE DR 20 MG TABLET PO (06:35)
--- NOTE | 2023-08-24 07:22 | P.PN_ITS ---
Subjective Subjective Interval history: Feels a little better today. Somewhat wheezy. On 1 L of oxygen. She sats 94%. She desats to 88% on 0 L. Intermittent cough which is productive of some green sputum. She was able to walk to the bathroom. Exam Vital Signs (past 8 hours): - 08/23/23 23:56 08/24/23 04:30 Temperature 98.1 F 98.2 F Pulse Rate 90 100 H Respiratory Rate 16 16 Blood Pressure 90/54 L 94/63 Pulse Oximetry 94 97 Oxygen Flow Rate 2 2 Fraction of Inspired Oxygen 28 SaO2/FiO2 Ratio 346 Oxygen Delivery Method Nasal Cannula Oxygen Flow Rate 2 Narrative Exam Narrative: NAD, alert and oriented. Fluent speech. Lungs are clear in the bases, some expiratory wheezing up in the superior aspect of the anterior chest, normal rate and effort. Heart is irregular, no murmur gallop or rub. Mild tachycardia of 105. Abdomen is soft, non distended. Extremities are free of edema. Objective Labs 08/23/23 04:25 08/23/23 04:25 [facility] Medical History Paroxysmal A-fib Tibia fracture Femur fracture, right COPD (chronic obstructive pulmonary disease) Social History household members: none Smoking Status: Former smoker Assessment & Plan Assessment & Plan narrative: 1. Pulmonary edema, present on admission and improving. 2. Acute hypoxic respiratory failure, present on admission and improving. 3. Atrial fibrillation with rapid response, present on admission and slow improvement of rate control. 4. COPD, present on admission and stable. Some wheezing, we will continue nebulizers as needed. 5. Mild lactic acidosis, present on admission and improved. 6. Acute systolic heart failure, present on admission and active. Plan: -amiodarone infusion was discontinued 08/20 and PO was started. Started metoprolol 25 b.i.d. Increase Metoprolol to 50 BID. Add Digoxin 250 PO. -continue diuresis with IV Lasix. Monitor urine output. -wean oxygen as able. -out of bed. -Add Apixiban BID, stop SQ Heparin. We will continue to diurese her today and no further adjustments on her rate control medications. Continue to encourage range of motion. She will likely be stable for discharge in about 2 days with short-term home oxygen and home health services. She continues to decline the idea of [facility] transition. Spoke with her sister and niece at the bedside today. Quality VTE Deep Vein Thrombosis/Pulmonary Embolism Present on Admission: No
[2023-08-24] MEDS: APIXABAN 5 MG TABLET 2.5 MG PO ×2 (08:57→21:04)
[2023-08-24] MEDS: METOPROLOL ER 50 MG TABLET PO (08:57)
[2023-08-24] MEDS: AMIODARONE 200 MG TABLET 400 MG PO ×2 (08:57→17:15)
[2023-08-24] MEDS: ALBUTEROL/IPRATROPIUM 3 ML AMPUL INH (09:18)
--- NOTE | 2023-08-24 12:04 | CM.DPNOTE ---
Addendum entered by IVON Britt 08/24/23 13:58: Per Kiya at [facility], able to accept pt. SL Original Note: DCP Note [employer] reviewed EMR. Per hospitalist in morning multidisciplinary rounds, pt looking like will no longer need transfer. Anticipate home tomorrow with family with HH vs SNF. [employer] met with pt in room. [employer] F[employer]ER gave pt IMM. Pt reports plan is for home tomorrow. Sister/niece will take her home and niece will stay with her. Agreeable to HH. Only available option for pt's location and insurance is [facility]. Agreeable to RN/PT. [employer] emailed Kiya with new referral information. f2f and order needed. Plan: anticipate home tomorrow with sister and niece. Sig to follow pending acceptance. CM team will continue to follow closely. IVON Britt
--- NOTE | 2023-08-24 12:07 | PT-IP ANOTE ---
Checked on pt twice, c/o increased chest tightness and SOB. Pt in A-fib, RN aware. Will check back tomorrow.
[2023-08-24] MEDS: DIGOXIN 0.125 MG TABLET PO (17:15)
[2023-08-24] MEDS: ACETAMINOPHEN 325 MG TABLET 650 MG PO (17:16)
[2023-08-24] MEDS: SODIUM CHLORIDE 0.9% FLUSH 10 ML IV (21:04)
[2023-08-24] MEDS: GABAPENTIN 300 MG CAPSULE PO (21:04)
[2023-08-25] VITALS (36 sets, daily range): BP systolic 82–124; BP diastolic 51–75; PULSE 62–99; RESP 15–24; TEMP 36.4–36.7; O2SAT 74–98
[2023-08-25] MEDS: PANTOPRAZOLE DR 20 MG TABLET PO (06:04)
[2023-08-25] MEDS: ALBUTEROL/IPRATROPIUM 3 ML AMPUL INH ×2 (07:37→19:50)
--- NOTE | 2023-08-25 08:03 | PM.PN.1 ---
Subjective Subjective Interval history: She feels better. Her breathing is better. She was able to get up and go to the bathroom with some assistance today. She is finally agreed to go to snf for transitional rehabilitation. She lives alone and has a sister and a niece were somewhat supportive and can stay with her once he returns home. Her leg edema is better. She is chronic wheezing and shortness a breath from her COPD and feels that she is close to baseline. Exam Vital Signs (past 8 hours): - 08/25/23 02:00 08/25/23 03:00 08/25/23 04:00 Temperature Pulse Rate 87 82 78 Respiratory Rate Blood Pressure Pulse Oximetry 93 94 92 Oxygen Delivery Method Oxygen Flow Rate Fraction of Inspired Oxygen 08/25/23 04:00 08/25/23 04:18 08/25/23 04:18 Temperature Pulse Rate 86 Respiratory Rate Blood Pressure 84/54 L 97/56 L Pulse Oximetry 93 Oxygen Delivery Method Oxygen Flow Rate Fraction of Inspired Oxygen 08/25/23 04:21 08/25/23 05:00 08/25/23 06:00 Temperature 97.8 F Pulse Rate 80 81 89 Respiratory Rate 19 Blood Pressure 97/56 L Pulse Oximetry 94 93 93 Oxygen Delivery Method Oxygen Flow Rate 2 Fraction of Inspired Oxygen 08/25/23 07:00 08/25/23 07:37 Temperature Pulse Rate 89 85 Respiratory Rate 16 Blood Pressure Pulse Oximetry 93 95 Oxygen Delivery Method Nasal Cannula Oxygen Flow Rate 2 Fraction of Inspired Oxygen 28 Fraction of Inspired Oxygen 28 SaO2/FiO2 Ratio 339 Oxygen Delivery Method Nasal Cannula Oxygen Flow Rate 2 Narrative Exam Narrative: NAD, alert and oriented. Fluent speech. Lungs are clear, normal rate and effort. Minimal wheezing. Heart is irregular, no murmur gallop or rub. Abdomen is soft, non distended. Extremities with 1+ edema. Objective Labs 08/23/23 04:25 08/23/23 04:25 [facility] Medical History Paroxysmal A-fib Tibia fracture Femur fracture, right COPD (chronic obstructive pulmonary disease) Social History household members: none Smoking Status: Former smoker Assessment & Plan Assessment & Plan narrative: 1. Pulmonary edema, present on admission and improving. 2. Acute hypoxic respiratory failure, present on admission and improving. 3. Atrial fibrillation with rapid response, present on admission and slow improvement of rate control. 4. COPD, present on admission and stable. Some wheezing, we will continue nebulizers as needed. 5. Mild lactic acidosis, present on admission and improved. 6. Acute systolic heart failure, present on admission and active. Plan: -amiodarone infusion was discontinued 08/20 and PO Amiodarone was started. Started metoprolol 25 b.i.d. Increased Metoprolol to 50 BID. Add Digoxin 250 PO, now 125 daily. -continue diuresis with IV Lasix. Monitor urine output. -wean oxygen as able. -out of bed. -Add Apixiban BID, stop SQ Heparin. Continue current medications without change. Continue increasing activity. We will also plan on snf facility discharge in 1-2 days with a transition for rehabilitation. Quality VTE Deep Vein Thrombosis/Pulmonary Embolism Present on Admission: No
[2023-08-25] MEDS: APIXABAN 5 MG TABLET 2.5 MG PO ×2 (08:30→21:19)
[2023-08-25] MEDS: AMIODARONE 200 MG TABLET 400 MG PO ×2 (08:31→17:48)
[2023-08-25] MEDS: SODIUM CHLORIDE 0.9% FLUSH 10 ML IV ×2 (08:32→21:20)
--- NOTE | 2023-08-25 11:50 | OT.IP.EVAL ---
Current Diagnoses Heart failure, unspecified (08/20/23) Past Medical History (Last Reviewed 08/20/23 @ 15:09 by Kevin Angela MD) COPD (chronic obstructive pulmonary disease) Femur fracture, right Paroxysmal A-fib Tibia fracture Occupational Therapy Inpatient Evaluation/Re-Eval M1 PT/OT-IP Prior Functional Status Start: 08/21/23 08:26 Freq: NEEDED Status: Active Protocol: Document 08/25/23 15:01 CGR (Rec: 08/25/23 15:43 CGR [id number]) Medical Review Prior Functional Status Medical History Reviewed Yes Diet/Fluid Consistency Regular Communication WNLs Mobility and Gait Pt used rollator or SBQC in her home Activities of Daily Living and IADL's Pt took sink bath standing most days and got into her walk-in shower that has a lip to get into once a week. Neighbor did driving and shopping. Social History Household Members none Living Arrangements Mobile home Number of Floors (Floors) One Floor Number of Stairs To Enter/Railing? 5-6 steps with rail to enter ( one door has left rail and one door has right rail) Home Environment High Toilet,Walk in Shower Home Equipment Four Wheel Walker,Quad Cane, Shower Seat without Backrest, Hand Held Shower,Grab Bars In Shower Employment Status Retired Additional Social History Comment Pt states that she has a standard walker at her toilet that she uses to push up from to stand up from from toilet. Pt has a flat bed Previous intermittent 2L O2 use M2 OT-IP Current Condition Start: 08/25/23 15:01 Freq: Status: Active Protocol: Document 08/25/23 15:01 CGR (Rec: 08/25/23 15:43 CGR [id number]) Occupational Therapy Current Condition Current Condition Evaluation Date 08/25/23 Treatment Diagnosis weakness, COPD LE edema, hypoxia Diagnosis Onset Date 08/20/23 M3 OT- IP Subjective and Pain Start: 08/25/23 15:01 Freq: Status: Active Protocol: Document 08/25/23 15:01 CGR (Rec: 08/25/23 15:43 CGR [id number]) OT- Subjective Occupational Therapy Visit Type Type Initial Evaluation Visit Start Time 11:12 Visit Stop Time 11:50 Notes Pt states she recently got out of the shower with nursing assist. OT Pain Assessment Pain When Pain Assessed At Rest Pain Present Pain Present Denied Pain M4 OT- IP ADL's Start: 08/25/23 15:01 Freq: Status: Active Protocol: Document 08/25/23 15:01 CGR (Rec: 08/25/23 15:43 CGR [id number]) OT [id number] Comments OT Self-Feeding Comments not meal time OT ADL-Grooming General Evaluation Grooming Ability Standby Assistance Areas Needing Assistance Face Washing Comments OT Grooming Comments standing at sink OT ADL-Oral Care General Eval Oral Care Ability Standby Assistance Areas of Assistance Managing Dentures Comments Oral Care Comments standing at sink OT ADL-Dressing General Eval Lower Body Dressing Ability Standby Assistance Areas Needing Assistance Underpants/Brief Comments OT Dressing Comments Pt donned and doffed briefs. OT ADL-Toileting General Evaluation Toileting Ability Standby Assistance Comments OT Toileting Comments pt urinated seated on toilet OT ADL-Bathing Comments OT Bathing Comments not performed with OT, pt states that she just finished a shower with nursing. M5 OT- IP IADL's Start: 08/25/23 15:01 Freq: Status: Active Protocol: Document 08/25/23 15:01 CGR (Rec: 08/25/23 15:43 CGR [id number]) OT-Instrumental Activities of Daily Living Deficits IADL Deficits Identified No Deficits Home Safety Awareness Awareness of Need for Assistance at Home Good Awareness Ability to Problem Solve Emergency Able to Problem Solve Situations Driving Driving Comments Pt's neighbor does all driving and grocery shopping. M6 OT- IP Functional Cognition Start: 08/25/23 15:01 Freq: Status: Active Protocol: Document 08/25/23 15:01 CGR (Rec: 08/25/23 15:43 CGR [id number]) Cognitive Factors Limiting Selfcare Function Cognitive Ability Level of Alertness Alert Patient Orientation Name,Age,Birthday,Month,Date, Year,Day of Week,Place, Situation Attention Span Ability Capable of Focused Attention, Capable of Sustained Attention OT- Vision and Hearing OT- Hearing Assessment OT- Hearing Assessment WFL OT- Vision Assessment Visual Acuity WFL Visual Attentiveness WFL Occular Pursuits WFL Visual Convergence WFL M7 OT- IP Mobility and Balance Start: 08/25/23 15:01 Freq: Status: Active Protocol: Document 08/25/23 15:01 CGR (Rec: 08/25/23 15:43 CGR [id number]) OT-Transfer Assessment Sit to and From Stand Sit to and from Stand Moderate Assistance,1 Person Assistance Transfers Transfer Ability Contact Guard Assistance Technique Transfer Destination Chair,Toilet Transfer Technique Stand Step Pivot Devices Transfer Assistive Devices Gait Belt,Front Wheeled Walker Comments Mobility Comments Pt needed mod a for sit to stand from chair and toielt OT- Gait Assessment Gait Gait Assistance Required: Contact Guard Assist Assistive Devices Assistive Device Gait Belt,Front Wheeled Walker OT- Balance Assessment Sitting Balance and Reactions Static Sitting Balance Ability Good Dynamic Sitting Balance Ability Good M8 OT- IP Objective Assessments Start: 08/25/23 15:01 Freq: Status: Active Protocol: Document 08/25/23 15:01 CGR (Rec: 08/25/23 15:43 CGR [id number]) OT Gross Range of Motion Upper Extremity Range of Motion Assessment Left Impaired ROM Impairments B shld restrictions, L shld minimal movement and R shld 0- 80 OT Strength Upper Extremity Strength Assessment Within Functional Limits Comments Strength Comments grossly 3+/5, shlds not tested . OT- Coordination Assessment Upper Extremity Finger to Nose Test Within Functional Limits Finger Tapping Test Within Functional Limits OT-Muscle Tone Assessment Muscle Tone WNL Yes OT Sensation Assessment Edema Edema Absent M9 OT- IP Assessment and Plan Start: 08/25/23 15:01 Freq: Status: Active Protocol: Document 08/25/23 15:01 CGR (Rec: 08/25/23 15:43 CGR [id number]) OT Summary Assessment and Plan Potential Rehabilitation Potential Good Analytic Complexity at Evaluation Moderate Summary OT Impairments Range of Motion,Strength, Balance,Functional Mobility, Grooming,Dressing,Toileting, Bathing,Toilet Transfers, Shower Transfers,Activity Tolerance Progress Towards Goals Progressing Toward Goals Assessment Summary Pt presents as a moderate complexity evaluation s/p admit for generalized weakness , COPD exacerbation, LE edema, and hypoxia. Pt currently is needing mod a for sit to stand but otherwise needs CGA for most ADLs. Pt with low endurance but is agreeable to activity. Pt states that her niece will come to stay with her but is likely not available for caregiver training. Notified CM regarding inconsistencies with home discharge plan. Later discussed with who states that pt is now agreeable to going to SNF. Pt is most appropriate for SNF discharge. Goals Grooming Goal Independent Dressing Goal Independent Toileting Goal Independent Bathing Goal Independent Toilet Transfer Goal Independent Shower Transfer Goal Independent Days to Meet Goals 15 Frequency of Treatment Frequency Of Treatment Once a Day Treatment Plan OT Treatment Plan ADL Training,Functional Mobility,Patient/Family Education,Discharge Planning Other Treatment Recommendations and Next sit to stand practice, Treatment Focus endurance activities. Discharge Recommendations OT Discharge Recommendations SNF Rehab Transportation Needs at Discharge Private Vehicle
--- NOTE | 2023-08-25 12:30 | PT-IP ANOTE ---
PT checks on pt who is falling asleep holding onto yoruba ice while sitting up in chair. She awakens and has some SOB at rest and O2 sats are in the low 90s on O2. Pt would like to eat yoruba ice and pleasantly declines PT currently. She just finished with OT. PT verifies with pt that she has only been OOB to chair and BSC in the ICU since last week and PT ed pt that she currently requires min to mod A to get up and SNF is more appropriate d/c location than home with family assistance. Communicated this also to attending.
--- NOTE | 2023-08-25 15:37 | CM.DPNOTE ---
Addendum entered by IVON Britt 08/25/23 16:26: Per Annabella at [facility], able to accept pt if [facility] authorizes SNF stay. Kindly asked for dc paperwork to include something skillable in the DC summary. SL Addendum entered by Charlene Grigsby, DOUBLE BACK OPERATOR 08/25/23 15:59: PASRR completed and behind facesheet. SL Original Note: DCP note DOUBLE BACK OPERATOR reviewed EMR. Per PT/OT eval, rec SNF placement. Per OT, mod assist, cannot get up independently. Per provider, pt likely could be stable to dc tomorrow. Per hospitalist, pt now agreeable to SNF placement. DOUBLE BACK OPERATOR met with pt in room. Pt reports agreeable to SNF. Preference is close to [place] as possible. DOUBLE BACK OPERATOR reviewed options with pt. Preference is [facility] nd then [place] if needed but really wants to dc to [facility]. Pt reports her dcp after SNF rehab would be for sister Amari and niece Sonia to stay with her as long as needed. Pt reports working on making her son Bob ([phone]) healthcare and financial POAs. DOUBLE BACK OPERATOR provided pt copy of [place] POA pwwk. Pt reports her other local friends, mainly Greg, assist her at home as well. DOUBLE BACK OPERATOR spoke with Annabella from [facility]. willing to review. one last bed availability. will submit for an auth first thing in am an pending auth/ability to accept, anticipate 2:30pm p/u Tu if medically stable. Plan: pending formal acceptance/ins auth, dc to [facility] potentially Friday, transport tentatively arranged for 2:30pm. CM team will continue to follow closely. IVON Britt
--- NOTE | 2023-08-25 15:52 | PT.IPTN ---
Addendum entered and electronically signed by Tata Woodson, ALEJANDRO 08/25/23 17:16: Assist doff/don R heel cushion when seated, removal for safety during gait but donned for skin integrity elevated on chair leg rest as when noted at arrival. Original Note: Current Diagnoses Heart failure, unspecified (08/20/23) Physical Therapy Treatment Note M2 PT-IP Current Condition Start: 08/21/23 08:26 Freq: NEEDED Status: Active Protocol: Document 08/25/23 15:33 SP (Rec: 08/25/23 17:11 SP [id number]) Physical Therapy Current Condition Current Condition Evaluation Date 08/21/23 Treatment Diagnosis Weakness, COPD, LE edema, hypoxia M3 PT-IP Subjective Start: 08/21/23 08:26 Freq: NEEDED Status: Active Protocol: Document 08/25/23 15:33 SP (Rec: 08/25/23 17:11 SP [id number]) Subjective Physical Therapy Visit Type Type Treatment Note Visit Start Time 15:33 Visit Stop Time 15:52 Notes LUE automated sitting: BP 100/ 63 HR 92-104 SaO2 92% on 2L. post mobility: BP 94/58 HR 107 SaO2 87-92% on 2L post brief stand breaths, wears O2 at home. Number of JOINT SUPERVISOR Visits 2 Physical Therapy Visit Comments Patient Comments Pt resting up in chair. Patient Goals Agreeable to SNF for increased strength and endurance to progress able to manage stairs , unable at this time. M4 PT-IP Mobility and Gait Start: 08/21/23 08:26 Freq: NEEDED Status: Active Protocol: Document 08/25/23 15:33 SP (Rec: 08/25/23 17:11 SP [id number]) PT-Transfer Assessment Sit to and From Stand Sit to and from Stand Minimal Assistance,1 Person Assistance,Use of Upper Extremities Equipment Transfer Assistive Device Gait Belt,4 Wheeled Walker Orthotic/Prosthetic Devices or Brace: No Transfers Transfer Destination Chair Transfer Technique ambulated /c 4WW Transfer Ability Level of Assist Standby Assistance,Contact Guard Assistance,1 Person Assistance,Use of Upper Extremities Comments Mobility Comments See vital above, slight decreased in BP but nonsymptomatic, SaO2 87-92% on 2L with mobility. Min A for wt shift fwd to come to stand on 2nd attempt with ed push from chair seat or arms, tends to push off lower rung on AD. Ed for safety use push from chair/surface sitting on/going to. Ed for proper safety brake mgt pre stand /sit good Weakness on L, RUE has to help downward pressure, karma sitting. Gait around room x3 laps good slow pacing and positioning during pivot and backing up to chair, stable not need use brake mgt but understood useage. Pt was up in chair with with all needs in reach. DIscussed with nursing chair alarm. Pt declined stating unable to trial stair mgt due to decreased strength.JOINT SUPERVISOR managed O2 line. Gait Assessment Gait Gait Assistance Required: Standby Assistance,1 Person Assist Distance (Feet) 100 Able to Maintain Weight Bearing Status Yes During Gait Assistive Devices Assistive Device Gait Belt,4 Wheeled Walker Orthotic/Prosthetic Devices or Brace: No Gait Deviations General Gait Pattern Decreased Stride Length, Decreased Feet Clearance, Flexed Trunk,Wide Based Gait Factors Limiting Gait Function Factors Limiting Gait Function Decreased Activity Tolerance, Decreased Strength,Limited Range of Motion,Poor Safety Awareness Comments Gait Comments see mobility comments Stair Climbing Assessment Comments Stair Climbing Comments Unable to assess due to decreased strength, tired after room gait mgt. PT-Balance Assessment Sitting Balance and Reactions Static Sitting Balance Ability Normal Dynamic Sitting Balance Ability Good Standing Balance and Reactions Static Standing Balance Ability Good Dynamic Standing Balance Ability Fair Device Used 4WW M5 PT-IP Objective Assessments Start: 08/21/23 08:26 Freq: NEEDED Status: Active Protocol: Document 08/21/23 11:02 MB (Rec: 08/21/23 11:57 MB [id number]) Orientation Orientation/Cognition Level of Alertness Alert Orientation Name,Age,Birthday,Month,Place, Situation Language Function Ability No Deficits Noted Safety Awareness Decreased Safety Awareness Memory Description No Deficits Noted Gross Range of Motion Upper Extremity ROM Assessment Bilaterally Impaired Impairments Pt reports B shoulder issues Lower Extremity ROM Assessment Within Functional Limits Impairments Mild toe and ankle changes, dressing on right heel, graft site anterior right guardado, B LE edema Strength Upper Extremity Strength Assessment Bilaterally Impaired Lower Extremity Strength Assessment Within Functional Limits M6 PT-IP Treatment Start: 08/21/23 08:26 Freq: NEEDED Status: Active Protocol: Document 08/25/23 15:33 SP (Rec: 08/25/23 17:11 SP [id number]) Physical Therapy Treatment Education Education Provided Safety M7 PT-IP Assessment and Plan Start: 08/21/23 08:26 Freq: NEEDED Status: Active Protocol: Document 08/25/23 15:33 SP (Rec: 08/25/23 17:11 SP [id number]) PT Summary Assessment and Plan Potential Rehabilitation Potential Good Summary Impairments Pain,ROM,Strength,Balance,Bed Mobility,Transfers,Gait, Activity Tolerance Progress Towards Goals Progressing Toward Goals,Slow Progress due to Activity Tolerance Assessment Summary Pt progressing in mobility increased distance gait /c 4WW , needs Harvey to come to standing, ed for proper brake mgt 4WW and hand placement from chair. Pt needed support O2 line during tx of which use to do self PLOF. Recommending SNF for increase strength and I mobiltiy progression to allow home with assist safety including need complete stair mgt when able. Goals Bed Mobility Goal Independent Transfer Goal Independent,Four Wheeled Walker Gait Goal Independent,Four Wheel Walker Gait Distance 50 Other Goals Pt will ascend and descend 5-6 steps with use of rail to allow safe home entrance. Days to Meet Goals 5 Frequency of Treatment Frequency Of Treatment Once a Day Treatment Plan Physical Therapy Treatment Plan Bed Mobility Training,Transfer Training,Gait Training, Therapeutic Exercise,Balance Retraining,Discharge Planning, Hot or Cold Pack,Neuromuscular Re-ed,Coordination Retraining ,Manual Therapy Other Recommendations and Next Treatment increased distance gait /c 4WW Focus , LE ex/STS, stair mgt when able. Weight Bearing Status Weight Bearing Status Weight Bear as Tolerated Recommendations To Nursing Amount of Assist Needed Standby Assistance,1 Person Assist Discharge Recommendations PT Discharge Recommendations SNF Rehab Transportation Needs at Discharge Wheelchair/Cabulance
[2023-08-25] MEDS: DIGOXIN 0.125 MG TABLET PO (17:47)
[2023-08-25] MEDS: GABAPENTIN 300 MG CAPSULE PO (21:19)
[2023-08-26] VITALS (16 sets, daily range): BP systolic 86–136; BP diastolic 52–84; PULSE 76–97; RESP 16–18; TEMP 36.3–37.1; O2SAT 91–100
[2023-08-26] MEDS: ALBUTEROL/IPRATROPIUM 3 ML AMPUL INH ×2 (08:31→21:34)
[2023-08-26] MEDS: PANTOPRAZOLE DR 20 MG TABLET PO (09:15)
[2023-08-26] MEDS: APIXABAN 5 MG TABLET 2.5 MG PO ×2 (09:16→21:55)
[2023-08-26] MEDS: SODIUM CHLORIDE 0.9% FLUSH 10 ML IV ×2 (09:16→22:54)
[2023-08-26] MEDS: AMIODARONE 200 MG TABLET 400 MG PO ×2 (09:16→19:05)
[2023-08-26] MEDS: ACETAMINOPHEN 325 MG TABLET 650 MG PO ×2 (09:18→19:08)
--- NOTE | 2023-08-26 10:37 | PT.IPTN ---
Current Diagnoses Heart failure, unspecified (08/20/23) Physical Therapy Treatment Note M2 PT-IP Current Condition Start: 08/21/23 08:26 Freq: NEEDED Status: Active Protocol: Document 08/25/23 15:33 SP (Rec: 08/25/23 17:11 SP [id number]) Physical Therapy Current Condition Current Condition Evaluation Date 08/21/23 Treatment Diagnosis Weakness, COPD, LE edema, hypoxia M3 PT-IP Subjective Start: 08/21/23 08:26 Freq: NEEDED Status: Active Protocol: Document 08/26/23 11:07 TS (Rec: 08/26/23 11:14 TS [id number]) Subjective Physical Therapy Visit Type Type Treatment Note Visit Start Time 10:37 Visit Stop Time 11:04 Number of IMPORT EXPORT MANAGER Visits 3 Physical Therapy Visit Comments Patient Comments Pt found resting in chair, is agreeable to PT. M4 PT-IP Mobility and Gait Start: 08/21/23 08:26 Freq: NEEDED Status: Active Protocol: Document 08/26/23 11:07 TS (Rec: 08/26/23 11:14 TS [id number]) PT-Transfer Assessment Sit to and From Stand Sit to and from Stand Minimal Assistance,1 Person Assistance,Use of Upper Extremities Equipment Transfer Assistive Device Gait Belt,Front Wheeled Walker Orthotic/Prosthetic Devices or Brace: No Comments Mobility Comments Pt resting on 3.5L's of 02, Spo2 96%, BP 93/58 sitting. STS from chair Harvey with use of FWW. BP in standing 97/55, pt denied any lightheadedness. She ambulated ~80'SBA with FWW and flexed posture, pt continued to deny lightheadedness, reported SOB and fatigue, Spo2 95%, HR 110- 117. She sat back in chair, performed knee flex/ext and seated marches, pt c/o pain in RLE with knee flex/ext. Pt was left in chair, all needs met. Gait Assessment Gait Gait Assistance Required: Standby Assistance,1 Person Assist Distance (Feet) 80 Able to Maintain Weight Bearing Status Yes During Gait Assistive Devices Assistive Device Gait Belt,Front Wheeled Walker Orthotic/Prosthetic Devices or Brace: No Gait Deviations General Gait Pattern Decreased Stride Length, Decreased Feet Clearance, Flexed Trunk,Wide Based Gait Factors Limiting Gait Function Factors Limiting Gait Function Decreased Activity Tolerance, Decreased Strength,Limited Range of Motion,Poor Safety Awareness Comments Gait Comments see mobility comments PT-Balance Assessment Sitting Balance and Reactions Static Sitting Balance Ability Normal Dynamic Sitting Balance Ability Good Standing Balance and Reactions Static Standing Balance Ability Good Dynamic Standing Balance Ability Fair Device Used FWW M5 PT-IP Objective Assessments Start: 08/21/23 08:26 Freq: NEEDED Status: Active Protocol: Document 08/21/23 11:02 MB (Rec: 08/21/23 11:57 MB [id number]) Orientation Orientation/Cognition Level of Alertness Alert Orientation Name,Age,Birthday,Month,Place, Situation Language Function Ability No Deficits Noted Safety Awareness Decreased Safety Awareness Memory Description No Deficits Noted Gross Range of Motion Upper Extremity ROM Assessment Bilaterally Impaired Impairments Pt reports B shoulder issues Lower Extremity ROM Assessment Within Functional Limits Impairments Mild toe and ankle changes, dressing on right heel, graft site anterior right guardado, B LE edema Strength Upper Extremity Strength Assessment Bilaterally Impaired Lower Extremity Strength Assessment Within Functional Limits M6 PT-IP Treatment Start: 08/21/23 08:26 Freq: NEEDED Status: Active Protocol: Document 08/26/23 11:07 TS (Rec: 08/26/23 11:14 TS [id number]) Physical Therapy Treatment Education Education Provided Safety M7 PT-IP Assessment and Plan Start: 08/21/23 08:26 Freq: NEEDED Status: Active Protocol: Document 08/26/23 11:07 TS (Rec: 08/26/23 11:14 TS [id number]) PT Summary Assessment and Plan Potential Rehabilitation Potential Good Summary Impairments Pain,ROM,Strength,Balance,Bed Mobility,Transfers,Gait, Activity Tolerance Progress Towards Goals Progressing Toward Goals Assessment Summary Krys continues to make some progress with her mobility but is limited by poor activity tolerance. She ambulated ~80' SBA with FWW, reported SOB and fatigue, Spo2 remained in mid 90's on 4L's of o2. PT is recommending SNF at this time to progress strength. Goals Bed Mobility Goal Independent Transfer Goal Independent,Four Wheeled Walker Gait Goal Independent,Four Wheel Walker Gait Distance 50 Other Goals Pt will ascend and descend 5-6 steps with use of rail to allow safe home entrance. Days to Meet Goals 5 Frequency of Treatment Frequency Of Treatment Once a Day Treatment Plan Physical Therapy Treatment Plan Bed Mobility Training,Transfer Training,Gait Training, Therapeutic Exercise,Balance Retraining,Discharge Planning, Hot or Cold Pack,Neuromuscular Re-ed,Coordination Retraining ,Manual Therapy Other Recommendations and Next Treatment increased distance gait /c 4WW Focus , LE ex/STS, stair mgt when able. Weight Bearing Status Weight Bearing Status Weight Bear as Tolerated Recommendations To Nursing Amount of Assist Needed 1 Person Assist Discharge Recommendations PT Discharge Recommendations SNF Rehab Transportation Needs at Discharge Wheelchair/Cabulance
--- NOTE | 2023-08-26 10:46 | DIET.CONS ---
Addendum entered by Obdulia Shafer 08/27/23 10:59: Recommend Ensure BID at longterm facility to prevent further weight and muscle loss. Original Note: Dietary Consultation Note Admission Date: 08/20/2023 13:28 Assessment: 83 y F admitted for edema in the legs and SOB. Nutrition screened LOS. PMH COPD. Met with pt at bedside. Reports unable to eat larger meals due to hiatal hernia and difficulty with weight maintenance. Has small frequent snacks throughout day to maintain weight. Reports 10-15# weight loss in 2 months and no longer having a sweet tooth. Has boxes of chocolate Ensure at home, drinks 1/d. Other snacks include grapes, cheese, Belvita bars. Difficulty remembering exact daily intake for diet recall. Nutrition focused physical exam: Muscle wasting: -Severe loss in temporalis -Moderate to severe loss in clavicle region (deltoid, pectoralis major, trapezius) -Severe loss in interosseous Subcutaneous fat loss: -Moderate loss in buccal and orbital fat pads Ht: 147.32 cm Wt: 53.3 kg BMI: 24.2 UBW: 56.8 kg per pt 2 months ago (-6.1% loss in 2 months, non-severe); 60.781 kg on 10/09/22 per chart (-12.3% in 10 months, non-severe) *noted lasix Last BM: 08/24/23 (08/24/23 18:00) MNA: 11 Santo Score: 17 Diet: 08/20/23 Dinner Heart Healthy Diet Diet Modifications: Sodium Level: 2 gm Sodium Food Texture: Level 7 - Regular Liquid Consistency: Level 0 - Thin Nutrition Percent Meal Consumed 100% 08/25/23 08:55 Percent Meal Consumed 0% 08/24/23 18:00 Labs: RBC 3.77 X10^6/uL (4.0-5.2) L 08/23/23 04:25 Hgb 10.1 g/dL (12.0-16.0) L 08/23/23 04:25 Hct 31.7 % (36-46) L 08/23/23 04:25 Creatinine 0.82 mg/dL (0.52-1.04) 08/23/23 04:25 Lactate 1.6 mmol/L (0.7-2.1) 08/20/23 12:31 NT-Pro-B Natriuret Pep 2350 pg/mL (<450) H 08/20/23 10:38 Nutrition Diagnosis: Unintended weight loss r/t decreased ability to consume adequate energy-protein and increased protein needs in setting of systolic heart failure as evidenced by 6% weight loss in 2 months, non-severe, moderate to severe muscle mass loss (temporalis, clavicle region, interosseous), and moderate subcutaneous fat loss (buccal and orbital fat pads). Interventions: 1. MNT for unintended weight loss provided 2. Ordered Ensure BID EER: -[id number] kcals/day (27-30 kcals per BMI) -70-75 g protein/day (1.37 g/kg per HF, depleted) Monitoring/Evaluations: ONS tolerance, po intakes, weight Electronically Signed by: Obdulia Shafer 08/26/23 10:46 Clinical Dietitian [address] [id number]
--- NOTE | 2023-08-26 10:55 | CM.DPNOTE ---
DCP note TRUCK SHOP MECHANIC reviewed EMR. Per hospitalist in morning rounds, pt's BP dropped overnight/pt was requiring more O2 this morning. Wanted to keep pt another night to adjust medications. anticipate ready to dc tomorrow to SNF. TRUCK SHOP MECHANIC spoke with Jeni at [facility]. Able to accept pt/got the insurance auth. Will plan for tomorrow morning transport time pending. TRUCK SHOP MECHANIC updated RN. TRUCK SHOP MECHANIC met with pt in room. Pt agreeable to one more day here and then transition to . Excited about ins auth. TRUCK SHOP MECHANIC emailed Kiya at [facility] to update about canceling the referral. Plan: dc to [facility], anticipate tomorrow morning, transport with facility time pending. PASRR completed. [facility] could follow as back up if needed. CM team will follow closely IVON Britt
[2023-08-26 14:52] LABS: Magnesium 2.1 mg/dL (1.6-2.3)
[2023-08-26 14:58] LABS: Carbon Dioxide 39 mmol/L (22-32); HEMOLYSIS < 15 (0-50)
[2023-08-26 15:00] LABS: BUN Creatinine Ratio 47.9 (6-22); Blood Urea Nitrogen 46 mg/dL (7-17); Calcium 9.4 mg/dL (8.4-10.2); Chloride 93 mmol/L (98-107); Estimated Glomerular Filt Rate 58 mL/min (>60); Glucose 234 mg/dL (80-110); Potassium 3.6 mmol/L (3.4-5.1); Sodium 136 mmol/L (137-145)
[2023-08-26 15:31] LABS: Digoxin 0.7 ng/mL (0.8-2.0)
--- NOTE | 2023-08-26 15:56 | PC.NURSE ---
Patient moved to room 217 for staffing purposed, moved by coordinator with all her belongings. Report given to Tom MEHTA.
--- NOTE | 2023-08-26 16:55 | PM.PN.1 ---
Subjective Subjective Date Patient Seen: 08/26/23 Interval history: Pt with stable dyspnea. Has chronic NICHOLS due to severe COPD. States she is very weak and needs assistance to ambulate. BP low overnight 86/52. HR controlled in afib. Exam Vital Signs (past 8 hours): - 08/26/23 12:00 08/26/23 16:00 Temperature 97.8 F 97.4 F L Pulse Rate 94 H 92 H Respiratory Rate 18 16 Blood Pressure 102/55 L 102/52 L Pulse Oximetry 97 91 Oxygen Flow Rate 2 2 Fraction of Inspired Oxygen 36 SaO2/FiO2 Ratio 266 Oxygen Delivery Method Nasal Cannula Oxygen Flow Rate 2 Narrative Exam Narrative: Gen: alert, NAD Lungs: clear CV: irregular rhythm Ext: no edema Objective Labs 08/23/23 04:25 08/26/23 14:02 Labs: Laboratory Results - last 24 hr 08/26/23 14:02 Sodium 136 L Potassium 3.6 Chloride 93 L Carbon Dioxide 39 H BUN 46 H Creatinine 0.96 Estimated GFR 58 L BUN/Creatinine Ratio 47.9 H Glucose 234 H D Calcium 9.4 Magnesium 2.1 Digoxin 0.7 L PFSH Medical History Paroxysmal A-fib Tibia fracture Femur fracture, right COPD (chronic obstructive pulmonary disease) Social History household members: none Smoking Status: Former smoker Assessment & Plan Assessment & Plan narrative: 1. Pulmonary edema, present on admission and improving. 2. Acute on chronic hypoxic respiratory failure, present on admission and improving. 3. Atrial fibrillation with rapid response, present on admission and slow improvement of rate control. 4. COPD, present on admission and stable. Some wheezing, we will continue nebulizers as needed. 5. Mild lactic acidosis, present on admission and improved. 6. Acute systolic heart failure, present on admission and active. EF 30-35% PLAN: Pt with mod hypotension, may be slightly volume depleted now -amiodarone infusion was discontinued 08/20 and PO Amiodarone was started. Started metoprolol 25 b.i.d. Increased Metoprolol to 50 BID. Added Digoxin 250 PO, now 125 daily. Dig level 0.7. -stopped furosemide and metoprolol, last dose of both 08/24 pm -restart furosemide at lower dose once BP stabilizes - pt doesn't drink much fluids -restart metoprolol if HR not controlled with amio and dig -added kcl 20 meq po qd -don't think pt's BP will tolerate JONAS-I/ARB at this time -cont O2 2L NC, pt's home routinie -out of bed. -cont Apixiban 2.5 mg BID -SNF discharge possibly tomorrow -f/u outpatient cardiology, sees Dr Abad Quality VTE Deep Vein Thrombosis/Pulmonary Embolism Present on Admission: No
[2023-08-26] MEDS: DIGOXIN 0.125 MG TABLET PO (19:06)
[2023-08-26] MEDS: GABAPENTIN 300 MG CAPSULE PO (21:54)
[2023-08-27] VITALS: BP 111/64; PULSE 74; RESP 17; TEMP 37; O2SAT 93
[2023-08-27 04:00] VITALS: BP 118/76; PULSE 84; RESP 17; TEMP 36.6; O2SAT 94
[2023-08-27] MEDS: PANTOPRAZOLE DR 20 MG TABLET PO (05:53)
--- NOTE | 2023-08-27 07:51 | PC.NURSE ---
Assess- Patient up to the bathroom and voided, uses the walker to get up and ambulate. Patient is a one person assist. Back to chair and waiting for some breakfast. She denies discomfort at this time.
[2023-08-27 08:00] VITALS: BP 120/67; PULSE 94; RESP 16; TEMP 36.6; O2SAT 97
[2023-08-27] MEDS: ALBUTEROL/IPRATROPIUM 3 ML AMPUL INH (08:22)
[2023-08-27 08:25] VITALS: O2SAT 94
[2023-08-27] MEDS: AMIODARONE 200 MG TABLET 400 MG PO (09:46)
[2023-08-27] MEDS: APIXABAN 5 MG TABLET 2.5 MG PO (09:46)
[2023-08-27] MEDS: SODIUM CHLORIDE 0.9% FLUSH 10 ML IV (09:46)
--- NOTE | 2023-08-27 10:41 | PM.DS.1 ---
History of Present Illness History of Present Illness Chief complaint: extreme pain anemia and arthritis Narrative: Patient is an 83-year-old female with a history of COPD, GERD, PAF, and venous stasis who presents with 2 weeks of progressive leg edema followed by several days of progressive shortness a breath. She was found in the emergency department to be in atrial fibrillation with rapid response. A diltiazem drip was started with minimal effect on heart rate. She initially was hypoxic and was placed on BiPAP for labored breathing. She did diurese with Lasix and put a L of urine out. She was transferred to floor and came off from BiPAP without difficulties. She was stable on 2 L of oxygen. She denies any chest pain. She does see a heating and ventilating drafter at [facility], she believes it is Dr. Abad. It has been sometime since she is seen him. She does not take a diuretic at home. She has had some orthopnea and also notes a cough for the last week. Chest x-ray in the emergency department revealed pulmonary edema but no infiltrate. She has a history of a lower extremity fracture complicated by osteomyelitis requiring 6 months of antibiotics distantly. She has multiple scars on lower extremity and and day tissue defect that is well healed. She denies difficulties with urination, or constipation. No abdominal pain or change in appetite. She lives alone at [place], her son is her power of title attorney and proxy decision maker. He lives in [facility]. Discharge Providers Provider Date of admission: 08/20/23 13:28 Discharge Date: 08/27/23 Primary care physician: Hansel Hanna MD Consults: 08/20/23 14:42 Consult to Physical Therapy Evaluate & Treat Comment: Physician Instructions: Evaluate and Treat 08/23/23 07:54 Consult to Physical Therapy Evaluate & Treat Comment: Physician Instructions: Evaluate and Treat 08/25/23 10:38 Consult to Occupational Therapy Evaluate & Treat Comment: Physician Instructions: Evaluate and treat Discharge provider: Kevin Angela MD Summary Hospital Course Discharge Diagnosis: 1. Pulmonary edema, present on admission and improving. 2. Acute on chronic hypoxic respiratory failure, present on admission and improving. 3. Atrial fibrillation with rapid response, present on admission and slow improvement of rate control. 4. COPD, present on admission and stable. Some wheezing, we will continue nebulizers as needed. 5. Mild lactic acidosis, present on admission and improved. 6. Acute systolic heart failure, present on admission and active. EF 30-35% Hospital Course: She was admitted with acute on chronic hypoxemic respiratory failure in context of her chronic COPD. She had swollen legs and pulmonary edema at the time of admission. She was diuresed for the next 4 days with Lasix IV. She improved with regards to her edema and her breathing. She also had atrial fibrillation with rapid response which was not really responsive to beta blockers or diltiazem. She was treated with an amiodarone infusion and had a short-lived cardioversion to sinus. She then resumed atrial fibrillation. She was converted to oral medications. Metoprolol was started for a rate control strategy but she developed hypotension. On August 25 her beta holden was held in her Lasix was held. She improved overnight in his on her baseline oxygen of 2-3 L. her rate control is reasonable at this point she will be discharged on a digoxin 125 mg daily as well as amiodarone 400 b.i.d. with a taper which is outlined below. She has agreed to half-way facility rehabilitation efforts and we will discharge to [facility]. She initially had a mild lactic acidosis which improved, she also had mild hypokalemia which improved. Status at Discharge Cognitive/behavioral status at discharge: oriented Functional status at discharge: uses cane/walker Overall status at discharge: patient is progressing back to baseline Time Spent with Patient Time spent: Greater than 30 minutes Exam Vital Signs (past 8 hours): - 08/27/23 04:00 08/27/23 08:00 08/27/23 08:25 Temperature 97.8 F 97.8 F Pulse Rate 84 94 H Respiratory Rate 17 16 Blood Pressure 118/76 120/67 Pulse Oximetry 94 97 94 Oxygen Delivery Method Nasal Cannula Oxygen Flow Rate 1.5 1 2 Fraction of Inspired Oxygen 36 SaO2/FiO2 Ratio 266 Oxygen Delivery Method Nasal Cannula Oxygen Flow Rate 2 Narrative Exam Narrative: NAD, alert and oriented. Fluent speech. Lungs are clear, normal rate and effort. Minimal wheezing. Heart is irregular, no murmur gallop or rub. Abdomen is soft, non distended. Extremities with 1+ edema. Objective Imaging Chest x-ray: Radiologist's impression: Increased vascularity suggestive of edema. Echo: Radiologist's impression: Normal sinus rhythm. Normal LV size and wall thickness. Severe global hypokinesis. Ejection fraction is 30-35%. EPSS is 1.2 cm consistent with cardiomyopathy. Mild mitral annular calcification with mild associated mitral regurgitation. Otherwise there are no significant valvular abnormalities. Estimated PA systolic pressure is 59 mmHg assuming right atrial pressure 15 mmHg. No prior study available for comparison. Labs 08/23/23 04:25 08/26/23 14:02 Labs: Laboratory Results - last 24 hr 08/26/23 14:02 Sodium 136 L Potassium 3.6 Chloride 93 L Carbon Dioxide 39 H BUN 46 H Creatinine 0.96 Estimated GFR 58 L BUN/Creatinine Ratio 47.9 H Glucose 234 H D Calcium 9.4 Magnesium 2.1 Digoxin 0.7 L [facility] Medical History Paroxysmal A-fib Tibia fracture Femur fracture, right COPD (chronic obstructive pulmonary disease) Social History household members: none Smoking Status: Former smoker Discharge Assessment & Plan Assessment and Plan Assessment: 1. Pulmonary edema, present on admission and improving. 2. Acute on chronic hypoxic respiratory failure, present on admission and improving. 3. Atrial fibrillation with rapid response, present on admission and slow improvement of rate control. 4. COPD, present on admission and stable. Some wheezing, we will continue nebulizers as needed. 5. Mild lactic acidosis, present on admission and improved. 6. Acute systolic heart failure, present on admission and active. EF 30-35% Plan of Treatment: Discharge to half-way facility. We will continue digoxin and amiodarone. The patient will need an amiodarone taper over the next several weeks which can be as follows: Amiodarone 400 b.i.d. 7 days, amiodarone 400 mg daily 7 days, amiodarone 200 mg daily thereafter. The patient will be discharged off from diuretics but may requiring reinstitution of furosemide 20 mg daily in the next several days if she has recurrent edema or worsening dyspnea. Discharge Plan Discharge Plan Patient Disposition: SNF Transfer to: [facility] Under care of provider: Dr. Galo. Provider Discharge Comment: Stable for discharge to half-way facility with ongoing care. Discharge orders & Medications Prescriptions: New amiodarone 200 mg Tablet 400 mg PO BIDWM Qty: 14 0RF Eliquis 5 mg Tablet 2.5 mg PO BID Qty: 60 0RF digoxin 125 mcg (0.125 mg) Tablet 0.125 mg PO DAILY@1700 Qty: 14 0RF Continued omeprazole 20 mg Capsule,Delayed Release(Dr/Ec) 20 mg PO DAILY ipratropium-albuterol 0.5 mg-3 mg(2.5 mg base)/3 mL solution for nebulization 3 ml INHALATION Q4H PRN (Reason: shortness of breath or wheezing) Qty: 15 0RF guaifenesin [Mucus Relief ER] 600 mg tablet extended release 12hr 600 mg PO BID PRN (Reason: Cough) fluticasone propion-salmeterol [Wixela Inhub] 500-50 mcg/dose blister with device 1 inh INHALATION BID Patient Comments: [NO ORIGINAL SIG] gabapentin 300 mg capsule 300 mg PO BEDTIME Discontinued metoprolol succinate 25 mg Tablet Extended Release 24 Hr 25 mg PO DAILY Qty: 30 0RF Follow up/Referrals: Hansel Hanna MD [Primary Care Provider] - Discharge Health Status Multidrug resistant organism: No MDRO Diet/Activity/Treatments Diet: Regular Liquid consistency: Normal/Thin Food texture: Regular Skin/Wound/Dressing Care Report to your healthcare provider any signs of infection, such as:: chills, fever and increased pain Special Rehabilitation Services Reason for rehabilitation: Recovery r/t decondition Rehab type: Physical therapy and Occupational therapy Visit Report/Discharge Packet Instructions: DI for Heart Failure, DI for Atrial Fibrillation Stand Alone Forms: Patient Portal/API Discharge Data Primary Care Provider: Hansel Hanna Quality VTE Deep Vein Thrombosis/Pulmonary Embolism Present on Admission: No
[2023-08-27 12:00] VITALS: BP 110/59; PULSE 100; RESP 14; TEMP 37.2; O2SAT 97
[2023-08-27] MEDS: ACETAMINOPHEN 325 MG TABLET 650 MG PO (12:09)
--- NOTE | 2023-08-27 13:21 | PC.NURSE ---
Patient d/c note: Patient d/c to [facility]. Facility designee arrived with wheelchair. Patient was dressed placed on 1L NC portable to transportation. VSS, Patient was able to to assist in dressing herself. Printed scripts were placed in packet along with other paperwork. Report was called to Angélica at [facility]. IV and tele removed, pt briana. well.
--- NOTE | 2023-08-27 14:40 | CM.DPNOTE ---
DC Note Discharge to [facility] today; Jeni secured 1pm transport time, RN updated with time and report number. TON Lowe, kindly agreed to coordinate the remainder of the details for this discharge. Patient aware and agreeable to plan. Plan: Discharge to [facility] via cabulance today at 1pm JW
== END 2023-08-27 13:15 | DRG 291 ==
LOC: ED 12:55 → AC 13:29 → ICU 14:20 → AC 08-26 14:46
PROVIDERS: Internal Medicine; Admitting Provider Hospitalist; Emergency Provider Emergency Medicine; PCP Internal Medicine; Referring Provider Emergency Medicine; Visit Provider Hospitalist
DX: I50.21 Acute systolic (congestive) heart failure (principal); J96.21 Acute and chronic respiratory failure with hypoxia; E87.20 Acidosis, unspecified; I48.91 Unspecified atrial fibrillation; J44.9 Chronic obstructive pulmonary disease, unspecified; K21.9 Gastro-esophageal reflux disease without esophagitis; Z87.891 Personal history of nicotine dependence
CPT/HCPCS: 36415; 71045; 80048; 80053; 80162; 83605; 83735; 83880; 84484; 85025; 85610; 93307; 94640; 94660; 94760; 94762; 96365; 96366; 96375; 97116; 97162; 97166; 97530; 99284; 99291; J0282; J1644; J1940; J2919